=== PATIENT | male | born 1950 | race Caucasian/White ===

== ENCOUNTER → 2024-02-19 07:59 | Outpatient (BNVA) | payer MEDICARE, SELFPAY | PROVIDERS: PCP Nurse Practitioner Family; Visit Provider Podiatrist Foot & Ankle Surgery | DX: L97.512 Non-pressure chronic ulcer of other part of right foot with fat layer exposed; E11.621 Type 2 diabetes mellitus with foot ulcer | CPT/HCPCS: 11042; 99203 ==

== ENCOUNTER → 2024-02-26 09:58 | Outpatient (BNVA) | payer MEDICARE, SELFPAY | PROVIDERS: PCP Nurse Practitioner Family; Visit Provider Podiatrist Foot & Ankle Surgery | DX: L97.512 Non-pressure chronic ulcer of other part of right foot with fat layer exposed (principal) | CPT/HCPCS: 99213 ==

== ENCOUNTER → 2024-03-12 10:30 | Outpatient (BNVA) | payer MEDICARE, OTHER, SELFPAY | PROVIDERS: PCP Nurse Practitioner Family; Visit Provider Podiatrist Foot & Ankle Surgery | DX: L97.512 Non-pressure chronic ulcer of other part of right foot with fat layer exposed (principal) | CPT/HCPCS: 11042 ==

== ENCOUNTER → 2024-03-19 10:39 | Outpatient (BNVA) | payer MEDICARE, SELFPAY | PROVIDERS: PCP Nurse Practitioner Family; Visit Provider Podiatrist Foot & Ankle Surgery | DX: L97.512 Non-pressure chronic ulcer of other part of right foot with fat layer exposed (principal) | CPT/HCPCS: 11042 ==

== ENCOUNTER → 2024-03-25 12:57 | Outpatient (BNVA) | payer MEDICARE, SELFPAY | PROVIDERS: PCP Nurse Practitioner Family; Visit Provider Thoracic Surgery (Cardiothoracic Vascular Surgery) | DX: E11.52 Type 2 diabetes mellitus with diabetic peripheral angiopathy with gangrene (principal); E11.621 Type 2 diabetes mellitus with foot ulcer; L97.521 Non-pressure chronic ulcer of other part of left foot limited to breakdown of skin; L97.511 Non-pressure chronic ulcer of other part of right foot limited to breakdown of skin | CPT/HCPCS: 97597; 99213 ==

== ENCOUNTER → 2024-03-30 10:18 | Outpatient (BNVA) | payer MEDICARE, SELFPAY | PROVIDERS: PCP Nurse Practitioner Family; Visit Provider Thoracic Surgery (Cardiothoracic Vascular Surgery) | DX: E11.52 Type 2 diabetes mellitus with diabetic peripheral angiopathy with gangrene (principal); E11.621 Type 2 diabetes mellitus with foot ulcer; L97.511 Non-pressure chronic ulcer of other part of right foot limited to breakdown of skin; L97.521 Non-pressure chronic ulcer of other part of left foot limited to breakdown of skin | CPT/HCPCS: 97597 ==

== ENCOUNTER → 2024-04-06 11:02 | Outpatient (BNVA) | payer MEDICARE, SELFPAY | PROVIDERS: PCP Nurse Practitioner Family; Visit Provider Thoracic Surgery (Cardiothoracic Vascular Surgery) | DX: E11.52 Type 2 diabetes mellitus with diabetic peripheral angiopathy with gangrene (principal); E11.621 Type 2 diabetes mellitus with foot ulcer; L97.521 Non-pressure chronic ulcer of other part of left foot limited to breakdown of skin | CPT/HCPCS: 97597 ==

== ENCOUNTER → 2024-04-13 11:15 | Outpatient (BNVA) | payer MEDICARE, SELFPAY | PROVIDERS: PCP Nurse Practitioner Family; Visit Provider Thoracic Surgery (Cardiothoracic Vascular Surgery) | DX: E11.52 Type 2 diabetes mellitus with diabetic peripheral angiopathy with gangrene (principal); E11.621 Type 2 diabetes mellitus with foot ulcer; L97.521 Non-pressure chronic ulcer of other part of left foot limited to breakdown of skin | CPT/HCPCS: 97597 ==

== ENCOUNTER → 2024-04-20 10:49 | Outpatient (BNVA) | payer MEDICARE, SELFPAY | PROVIDERS: PCP Nurse Practitioner Family; Visit Provider Thoracic Surgery (Cardiothoracic Vascular Surgery) | DX: E11.621 Type 2 diabetes mellitus with foot ulcer (principal); L97.521 Non-pressure chronic ulcer of other part of left foot limited to breakdown of skin; Z09 Encounter for follow-up examination after completed treatment for conditions other than malignant neoplasm | CPT/HCPCS: 97597 ==

== ENCOUNTER → 2024-04-27 10:35 | Outpatient (BNVA) | payer MEDICARE, SELFPAY | PROVIDERS: PCP Nurse Practitioner Family; Visit Provider Thoracic Surgery (Cardiothoracic Vascular Surgery) | DX: E11.52 Type 2 diabetes mellitus with diabetic peripheral angiopathy with gangrene (principal); E11.621 Type 2 diabetes mellitus with foot ulcer; L97.511 Non-pressure chronic ulcer of other part of right foot limited to breakdown of skin | CPT/HCPCS: 97597 ==

== ENCOUNTER → 2024-05-04 09:54 | Outpatient (BNVA) | payer MEDICARE, SELFPAY | PROVIDERS: PCP Nurse Practitioner Family; Visit Provider Thoracic Surgery (Cardiothoracic Vascular Surgery) | DX: E11.52 Type 2 diabetes mellitus with diabetic peripheral angiopathy with gangrene (principal); E11.621 Type 2 diabetes mellitus with foot ulcer; L97.511 Non-pressure chronic ulcer of other part of right foot limited to breakdown of skin | CPT/HCPCS: 97597 ==

== ENCOUNTER → 2024-05-11 09:34 | Outpatient (BNVA) | payer MEDICARE, SELFPAY | PROVIDERS: PCP Nurse Practitioner Family; Visit Provider Thoracic Surgery (Cardiothoracic Vascular Surgery) | DX: E11.52 Type 2 diabetes mellitus with diabetic peripheral angiopathy with gangrene (principal); E11.621 Type 2 diabetes mellitus with foot ulcer; L97.511 Non-pressure chronic ulcer of other part of right foot limited to breakdown of skin | CPT/HCPCS: 97597 ==

== ENCOUNTER → 2024-05-18 08:40 | Outpatient (BNVA) | payer MEDICARE, SELFPAY | PROVIDERS: PCP Nurse Practitioner Family; Visit Provider Thoracic Surgery (Cardiothoracic Vascular Surgery) | DX: E11.52 Type 2 diabetes mellitus with diabetic peripheral angiopathy with gangrene (principal); E11.621 Type 2 diabetes mellitus with foot ulcer; L97.511 Non-pressure chronic ulcer of other part of right foot limited to breakdown of skin | CPT/HCPCS: 97597 ==

== ENCOUNTER → 2024-05-25 08:40 | Outpatient (BNVA) | payer MEDICARE, SELFPAY | PROVIDERS: PCP Nurse Practitioner Family; Visit Provider Thoracic Surgery (Cardiothoracic Vascular Surgery) | DX: E11.52 Type 2 diabetes mellitus with diabetic peripheral angiopathy with gangrene (principal); E11.621 Type 2 diabetes mellitus with foot ulcer; L97.511 Non-pressure chronic ulcer of other part of right foot limited to breakdown of skin | CPT/HCPCS: 97597 ==

== ENCOUNTER → 2024-06-08 09:15 | Outpatient (BNVA) | payer MEDICARE, SELFPAY | PROVIDERS: PCP Nurse Practitioner Family; Visit Provider Thoracic Surgery (Cardiothoracic Vascular Surgery) | DX: E11.52 Type 2 diabetes mellitus with diabetic peripheral angiopathy with gangrene (principal); E11.621 Type 2 diabetes mellitus with foot ulcer; L97.511 Non-pressure chronic ulcer of other part of right foot limited to breakdown of skin | CPT/HCPCS: 97597 ==

== ENCOUNTER → 2024-06-15 08:53 | Outpatient (BNVA) | payer MEDICARE, SELFPAY | PROVIDERS: PCP Nurse Practitioner Family; Visit Provider Thoracic Surgery (Cardiothoracic Vascular Surgery) | DX: E11.52 Type 2 diabetes mellitus with diabetic peripheral angiopathy with gangrene (principal); E11.621 Type 2 diabetes mellitus with foot ulcer; L97.511 Non-pressure chronic ulcer of other part of right foot limited to breakdown of skin | CPT/HCPCS: 97597 ==

== ENCOUNTER → 2024-06-29 09:09 | Outpatient (BNVA) | payer MEDICARE, SELFPAY | PROVIDERS: PCP Nurse Practitioner Family; Visit Provider Thoracic Surgery (Cardiothoracic Vascular Surgery) | DX: Z09 Encounter for follow-up examination after completed treatment for conditions other than malignant neoplasm (principal); Z87.2 Personal history of diseases of the skin and subcutaneous tissue | CPT/HCPCS: 99212 ==

== ENCOUNTER → 2024-07-14 09:38 | Outpatient (BNVA) | payer MEDICARE, SELFPAY | PROVIDERS: PCP Nurse Practitioner Family; Visit Provider Thoracic Surgery (Cardiothoracic Vascular Surgery) | DX: E11.52 Type 2 diabetes mellitus with diabetic peripheral angiopathy with gangrene (principal); E11.621 Type 2 diabetes mellitus with foot ulcer; L97.511 Non-pressure chronic ulcer of other part of right foot limited to breakdown of skin | CPT/HCPCS: 11042 ==

== ENCOUNTER → 2024-07-21 09:33 | Outpatient (BNVA) | payer MEDICARE, SELFPAY | PROVIDERS: PCP Nurse Practitioner Family; Visit Provider Thoracic Surgery (Cardiothoracic Vascular Surgery) | DX: Z09 Encounter for follow-up examination after completed treatment for conditions other than malignant neoplasm (principal); Z87.2 Personal history of diseases of the skin and subcutaneous tissue | CPT/HCPCS: 99212 ==

== ENCOUNTER → 2024-09-07 15:54 | Outpatient (BNVA) | payer MEDICARE, OTHER, SELFPAY | PROVIDERS: PCP Nurse Practitioner Family; Visit Provider Podiatrist Foot & Ankle Surgery | DX: L60.3 Nail dystrophy (principal); G62.9 Polyneuropathy, unspecified; L84 Corns and callosities; E11.42 Type 2 diabetes mellitus with diabetic polyneuropathy | CPT/HCPCS: 11055; 11721 ==

== ENCOUNTER → 2024-11-11 13:29 | Outpatient (BNVA) | payer MEDICARE, MEDICAID, SELFPAY | PROVIDERS: Visit Provider Podiatrist Foot & Ankle Surgery | DX: E11.42 Type 2 diabetes mellitus with diabetic polyneuropathy (principal); L60.3 Nail dystrophy; L84 Corns and callosities; G62.9 Polyneuropathy, unspecified | CPT/HCPCS: 11056; 11721; 99213 ==

== ENCOUNTER 2024-11-24 11:53 | Outpatient (RCR) | payer MEDICARE, MEDICAID, SELFPAY | END 2024-12-08 23:59 | disposition home or self-care (01) | LOC: SPT 11:53 | DX: I89.0 Lymphedema, not elsewhere classified (principal) | CPT/HCPCS: 97161 ==

== ENCOUNTER 2025-01-24 14:46 | Oncology outpatient (recurring) (ONCR) | payer OTHER, MEDICAID, SELFPAY | END 2025-02-07 23:59 | disposition home or self-care (01) | PROVIDERS: Visit Provider Internal Medicine Medical Oncology | DX: D69.6 Thrombocytopenia, unspecified (principal); R60.9 Edema, unspecified; K74.60 Unspecified cirrhosis of liver | CPT/HCPCS: 99205 ==

== ENCOUNTER 2025-02-14 08:55 | Inpatient (IN) | payer OTHER, MEDICAID, SELFPAY ==
--- OUTSIDE RECORDS SUMMARY | 2024-09-27 12:15 | XMS_ITS ---
Author Organization [facility] Address [address] [place] [address] Care Team Providers Care In Service Education Teacher Name Role Phone CHASTITY PARKER Unavailable [phone] JACINTO CRUM Unavailable [phone] REASON FOR VISIT 4 wk postop Encounters Encounter Location Date Provider Diagnosis [facility] [address] [facility] [place] [address] 09/27/2024 JACINTO CRUM Plan Of Treatment Next Appt Details Provider Name:JACINTO Titus, 03/28/2025 02:20:00 PM, [address] [place], [address], Progress Notes * Axel STRINGER EDOB: 2 (74 yo M)Acc No.[id number]:09/27/2024 Patient: Liliana UMANAAxel Provider: Maya CRUM MD :1950 A ge:74 Y S ex:Male Date:09/27/2024 Address:[address] [place] [address] [address], [place], [id number] Subjective: * Chief Complaints: * 1 . 4 wk postop. * Medical History: Objective: * Vitals: Assessment: Plan: * Treatment: * Billing Information: * Visit Code: * Procedure Codes: * Electronic signature of AUST IN MD SKYLA on 02/14/2025 at 09:05 AM CDT Sign off status: Pending * Provider: Maya CRUM MD Date: 0 09/27/2024 Generated for Tessie Lindog/Ferny on: 0 02/14/2025 09:05 AM CDT
[2025-02-14] VITALS (7 sets, daily range): BP systolic 111–139; BP diastolic 57–79; PULSE 65–82; RESP 16–19; TEMP 36.7–37.1; O2SAT 92–98; BMI 51.3; BMI 53.1
--- OUTSIDE RECORDS SUMMARY | 2025-02-14 09:06 | XMS_ITS | Encounter Summary ---
Author Organization [facility] Address [address] [place] [address] Care Team Providers Care Administrative Processor Name Role Phone Rosita Carpio DO Primary Care Provider [phone] Reason for Visit * Reason Onset Date Comments Needs Appointment 06/04/2024 Encounter Details Date Type Department Care Team (Late st Contact Info) Description 06/04/2024 Telephone [facility] [address] [facility] [address] [place] [address] Kirit Perez MD [address] [place] [address] KAMILLE Fried Needs Appointment Social History Tobacco Use Types Packs/Day Years Used Date Smoking Tobacco: Former Cigarettes Smokeless Tobacco: Never Alcohol Use Standard Drinks/Week Comments Never 0 (1 standard drink = 0.6 oz pur e alcohol) Feeling Safe Answer Date Recorded Are you in a relationship wi th someone who hurts you emotionally and/or physically? No 05/27/2024 Food Insecurity Answer Date Recorded Social/Environmental Concerns No concerns Transportation Needs Answer Date Record ed Social/Environmental Concerns No concerns Housing Stability Answer Date Recorded Social/Environmental Concerns No concerns Utility Needs Answer Date Recorded Social/Environmental Concerns No concerns Sex and Gender Information Value Date Recorded Sex Assigned at Not on file Legal Sex Male 9:56 AM CDT Gender Identity Not on file Sexual Orientation Not on file documented as of this encounter Miscellaneous Notes * Telephone Encounter - Ama Henriquez - 06/04/2024 9:51 AM CDT Chris (Provider) Caller: Nora Relation to Patient: daughter PHI (Y/N): y MESSAGE Caller is needing to schedule appt for pt, please advise Cardiology Junior Systems Administrator: Ama Henriquez documented in this encounter Plan of Treatment Upcoming Encounters Date Type Department Care Team (Late st Contact Info) Description 04/28/2025 2:30 PM CDT Office Visit [facility] Cardiology [facility]ly [facility] [address] [address] Whitney Oviedo, [address] [address] 05/04/2025 8:40 AM CDT Office Visit [facility] [address] [place] [address] Rosita Carpio DO [address] [place] [address] 07/08/2025 10:20 AM CITY DESIGNER Office Visit [facility] [address] [place] [phone] Jose Horn, [facility] [address] [place] [address] documented as of this encounter Visit Diagnoses Not on filedocumented in this encounter Additional Health Concerns Infection Onset Date Last Indicated Resolved Time R/O C. diff 10/12/2024 10/12/2024 10/12/2024 5:09 PM CITY DESIGNER R/O C. diff 10/12/2024 10/12/2024 10/13/2024 5:30 PM CITY DESIGNER documented as of this encounter Care Teams Administrative Processor Relationship Specialty Start Date End Date Rosita Carpio DO [address] [place] [address] PCP - General Family Practice 06/05/23 documented as of this encounter
--- OUTSIDE RECORDS SUMMARY | 2025-02-14 09:06 | XMS_ITS | Clinical Summary ---
Author Organization [facility] [address] [facility] Address [address] [facility] [place] [address] Phone Care Team Providers [facility] Dean Name Role Phone BalajiDahliaRosita L DO Primary Care Provider [phone] Allergies Active Allergy Reactions Criticality Noted Date Comments Penicillins Swelling Low 06/05/2023 Medications aspirin (ECOTRIN EC) 81 mg Tablet, Delayed Release (E.C.)Indicatio ns:Presence of Watchman left atrial appendage closure device,HFrEF (heart failure with reduced ejection fraction) (CMS/HCC),Benig n hypertension,Hi story of heart attack,Permanen t atrial fibrillation (CMS/HCC),Asymp tomatic bradycardia Take 81 mg by mouth daily. 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 Take 1/2 tablet once daily 45 Tablet 3 024 Active omeprazole (PriLOSEC) 20 mg Capsule, Delayed Release(E.C.)In dications:Gastr oesophageal reflux disease without esophagitis Take 1 Capsule (20 mg) by mouth daily. 90 Capsule 3 024 Active tamsulosin (FLOMAX) 0.4 mg capsule Take 0.4 mg by mouth daily after supper. Active L. acidophilus/pec tin, citrus (ACIDOPHILUS-PE CTIN, CITRUS ORAL) Take 1 Capsule by mouth daily. Active nystatin (NYSTOP) 100,000 unit/gram powderIndicatio ns:Candidal intertrigo Apply to affected area 2 times daily. 60 Gram 3 024 Active atorvastatin (LIPITOR) 40 mg tabletIndicatio ns:Dyslipidemia take 1 tablet by mouth once daily 100 Tablet 2 025 Active lisinopriL (PRINIVIL) 5 mg tabletIndicatio ns:Essential hypertension Take 0.5 Tablets (2.5 mg) by mouth daily. 30 Tablet 025 Active metOLazone (ZAROXOLYN) 2.5 mg tablet Take 1 Tablet (2.5 mg) by mouth 1 time daily as needed for Other (See Comment) (for worsening lower extremity edema. contact diesel fitter mechanic office if need to use). 30 Tablet 025 Active escitalopram oxalate (LEXAPRO) 10 mg tabletIndicatio ns:Major depressive disorder with single episode, in full remission Take 1 Tablet (10 mg) by mouth daily. 100 Tablet 3 025 Active potassium CHLORIDE (K-DUR,KLOR-CON M20) 20 mEq Extended Release tabletIndicatio ns:HFrEF (heart failure with reduced ejection fraction) (CMS/HCC) Take 1 Tablet (20 mEq) by mouth 2 times daily. 180 Tablet 3 025 Active glimepiride (AMARYL) 2 mg tabletIndicatio ns:Type 2 diabetes mellitus with other circulatory complication, without long-term current use of insulin (CMS/HCC) Take 1 Tablet (2 mg) by mouth daily with breakfast. 100 Tablet 3 025 Active metoprolol succinate (TOPROL XL) 25 mg Extended Release 24 hour tablet Take 25 mg by mouth. Active dapagliflozin propanediol (Farxiga) 10 mg Tablet Take 1 Tablet (10 mg) by mouth daily. 90 Tablet 4 025 Active dulaglutide (TRULICITY) 0.75 mg/0.5 mL injection Inject 0.5 mL (0.75 mg) by subcutaneous injection every 7 days. 9 mL 3 025 Active bumetanide (BUMEX) 2 mg tablet Take 1 Tablet (2 mg) by mouth two times daily, 7 hours apart. 60 Tablet 025 Active bumetanide (BUMEX) 2 mg tablet Take 1 Tablet (2 mg) by mouth two times daily, 7 hours apart. 60 Tablet 025 06/16/ 2025 Discontinued(R eorder) dapagliflozin propanediol (Farxiga) 10 mg Tablet TAKE ONE TABLET (10 MG TOTAL) BY MOUTH ONE (ONE) TIME EACH DAY. 023 2024 Discontinued(R eorder) liraglutide (Victoza 2-Bobby) 0.6 mg/0.1 mL (18 mg/3 mL) INJECT 0.6 MG ONCE DAILY FOR SEVEN DAYS THEN 1.2 MG SUBCUTANEOUSLY ONCE DAILY 024 2024 Discontinued Active Problems Problem Noted Date Diagnosed Date Major depressive disorder wi th single episode, in full remission 01/16/2025 Thrombocytopenia 11/16/2024 Scrotal swelling 10/11/2024 Benign prostatic hyperplasia with urinary freque ncy 07/20/2024 Frequent falls 07/02/2024 Frail elderly 07/02/2024 Lymphedema of both lower extremities 03/10/2024 Gastroesophageal reflux disease without esophagi tis 09/23/2023 Idiopathic chronic gout of multiple sites withou t tophus 09/23/2023 Vitamin D deficiency 09/23/2023 HFrEF (heart failure with reduced ejection fract ion) 09/23/2023 ASHD (arteriosclerotic heart disease) 07/17/2023 Essential hypertension 07/17/2023 Type 2 diabetes mellitus wit h stage 3a chronic kidney disease, without long-term current use of insulin 07/17/2023 Paroxysmal atrial fibrillation 04/16/2023 Presence of Watchman left atrial appendage closu re device 06/20/2022 Overview (01/16/2025): Watchman placement 05/23/22: 6 carries a watchman 27 mm device from lot #[id number] and 3 device measurement of the left atrial appendage was 20 mm post deployment the maximum device measurement EVER 06/20/2022 The left atrium is moderately dilated. Left Atrial Appendage: The watchman left atrial appendage occluder device is well visualized within the appendage. Assessment with color Doppler reveals no evidence of leak or failure to seal around the device. There is no thrombus noted on the watchman device. Morbid obesity with BMI of 50.0-59.9, adult 09/11 Chronic deep vein thrombosis (DVT) of both femor al veins 09/25/2017 Obstructive sleep apnea syndrome 07/28/2017 Overview (01/16/2025): Treated with BiPAP. Followed by pulmonology. Tobacco user 07/28/2017 Resolved Problems Problem Noted Date Diagnosed Date Resolved Date Morbid obesity 11/17/2024 01/16/2025 Stage 3b chronic kidney disease 06/11/2024 07/02/2024 Dyspnea 05/27/2024 01/16/2025 Swelling of lower extremity 05/27/2024 01/16/2025 Acute on chronic congestive heart failure 03/21/2024 07/02/2024 Benign hypertension 09/23/2023 06/03/20 Permanent atrial fibrillation 07/17/2023 01/16/2025 Dyslipidemia 07/17/2023 01/16/2025 Coronary atherosclerosis 08/28/201703/2025 Overview (01/16/2025): SHANNON to LAD 08/28 Encounters Date Type Department Care Team Description 02/01/2025 Orders Only [facility] Information Management [place] [address] [place] [address] Provider, Abstract 01/26/2025 External Device Data [facility] ABSTRACTION Provider, Abstract 01/24/2025 Refill [facility] [address] [place] [address] Rosita Carpio, 01/20/2025 Telephone [facility] [address] [place] [address] Rosita Carpio, DO Provider Call; [facility] 01/18/2025 Telephone [facility] [address] [place] [address] Rosita Carpio DO Provider Call; Provider Call 01/13/2025 Refill [facility] [address] [place] [address] Rosita Carpio, DO Type 2 diabetes mellitus with other circulatory complication, without long-term current use of insulin ([facility]) (Primary Dx) 01/05/2025 11:20 AM CDT Office Visit [facility] [address] [place] [address] Rosita Carpio DO Paroxysmal atrial fibrillation ([facility]) (Primary Dx); Major depressive disorder with single episode, in full remission; HFrEF (heart failure with reduced ejection fraction) ([facility]); Chronic deep vein thrombosis (DVT) of both femoral veins ([facility]); Morbid obesity with BMI of 50.0-59.9, adult ([facility]); Type 2 diabetes mellitus with stage 3a chronic kidney disease, without long-term current use of insulin ([facility]); ASHD (arteriosclerotic heart disease); Essential hypertension; Frail elderly; Frequent falls; Gastroesophageal reflux disease without esophagitis; Idiopathic chronic gout of multiple sites without tophus; Lymphedema of both lower extremities; Obstructive sleep apnea syndrome; Presence of Watchman left atrial appendage closure device; Benign prostatic hyperplasia with urinary frequency; Thrombocytopenia; Tobacco user 01/03/2025 Results Follow-Up [facility] [address] [place] [address] November, [employer] VITAMIN B12 AND FOLATE 12/31/2024 8:00 AM CDT Clinical Support [facility] [address] [place] [address] Thrombocytopenia; Chronic anemia 12/29/2024 External Device Data STL ABSTRACTION Provider, Abstract 12/27/2024 External Device Data Initial Department [address] [place] [address] Dr PARRA: [place] [address] Hitesh Gomez Md 12/22/2024 Orders Only [facility] [address] [place] [address] Mocknovember, [employer]CH[employer] Thrombocytopenia (Primary Dx) 12/21/2024 Refill [facility] [address] [place] [address] Jose Horn FNP Major depressive disorder with single episode, in full remission 12/21/2024 Results Follow-Up [facility] [address] [place] [address] November, [employer] MECH[employer]IC BASIC METABOLIC PANEL, CBC WITH DIFFERENTIAL, TEST AUTHORIZATION, VITAMIN B12 AND FOLATE 12/20/2024 9:00 AM CDT Clinical Support [place] [place] [id number] [place] [address] HFrEF (heart failure with reduced ejection fraction) ([facility]/HCC); Thrombocytopenia 12/13/2024 Telephone [facility] [address] [place] [address] Rosita Carpio DO Provider Call; Provider Call 12/07/2024 External Device Data STL ABSTRACTION Provider, Abstract 12/07/2024 Telephone [facility] [id number] [place] [address] Rosita Carpio DO Question; Diabetic shoe order 12/06/2024 9:00 AM CDT Office Visit [facility] [address] [place] [address] November, [employer] MECH[employer]IC HFrEF (heart failure with reduced ejection fraction) ([facility]) (Primary Dx); Lymphedema of both lower extremities 12/05/2024 Results Follow-Up [facility] [address] [place] [address] November, [employer] MECH[employer]IC COMPREHENSIVE METABOLIC PANEL, CBC WITH DIFFERENTIAL 12/03/2024 9:15 AM CDT Clinical Support [place] [id number] [facility] [place] [address] Hospital discharge follow-up; Acute on chronic diastolic (congestive) heart failure (CMS/HCC) 11/24/2024 Telephone [facility] [address] [facility] [place] [address] Rosita Carpio DO Needs Orders Written 11/23/2024 External Device Data STL ABSTRACTION Provider, Abstract 11/22/2024 10:40 AM CDT Office Visit [facility] [address] [place] [address] November, Hospital discharge follow-up (Primary Dx); Acute on chronic diastolic (congestive) heart failure (CMS/HCC) 11/21/2024 External Device Data Initial Department [address] [place] [address] Dr PARRA: [place] [address] Hitesh EmergencyMd 11/17/2024 External Device Data Initial Department [address] [place] [address] Dr PARRA: [place] [address] Hitesh [facility] 11/17/2024 Patient Outreach [address] [address] Roberta Keith RN [facility] 11/16/2024 10:01 AM CDT - 11/20/2024 12:34 PM CDT Hospital Encounter [facility] [address] [place] [address] Clare Cline MD Griffin, MD Christofer Gallegos Pratik, MD Jaoudeh, Marwan, MD Benign prostatic hyperplasia with urinary frequency Discharge Disposition: Home or Self Care 11/16/2024 Telephone [facility] [address] [place] [address] Rosita Carpio DO Provider Call 11/15/2024 11:00 AM CDT Office Visit [facility] [address] [place] [address] November, Scrotal swelling (Primary Dx); Lymphedema of both lower extremities; HFrEF (heart failure with reduced ejection fraction) (CMS/HCC) 11/15/2024 Travel 11/15/2024 Telephone [facility] [address] [place] [address] November, [employer]CH[employer] Needs Orders Written 11/15/2024 Telephone [facility] [address] [place] [address] Irasema Borrero, RN [employer] Security Guard from Last 3 Months Family History Medical History Relation Name Comments Diabetes Father Heart Attack Father Cancer Mother Relation Name Status Comments Father Mother Social History Tobacco Use Types Packs/Day Years Used Date Smoking Tobacco: Former Cigarettes Passive Smoke Exposure: Past Smokeless Tobacco: Never Tobacco Cessation:Counseling Given: No Alcohol Use Standard Drinks/Week Comments Yes 0 (1 standard drink = 0.6 oz pur e alcohol) one beer occasionally Feeling Safe Answer Date Recorded Are you in a relationship wi th someone who hurts you emotionally and/or physically? No 11/16/2024 Food Insecurity Answer Date Recorded Patient needs follow up regardin 12/02/2024 Transportation Needs Answer Date Record ed Patient needs follow up regardin 12/02/2024 Housing Stability Answer Date Recorded Social/Environmental Concerns No concerns Utility Needs Answer Date Recorded Patient needs follow up regardin 12/02/2024 Sex and Gender Information Value Date Recorded Sex Assigned at Not on file Legal Sex Male 9:56 AM CDT Gender Identity Not on file Sexual Orientation Not on file Last Filed Vital Signs Vital Sign Reading Time Taken Comments Blood Pressure 100/62 01/05/2025 11:15 AM CDT Pulse 64 01/05/2025 11:15 AM CDT Temperature 37.2 C (98.9 F) 01/05/2025 11:15 AM CDT Respiratory Rate 18 01/05/2025 11:15 AM CDT Oxygen Saturation 96% 01/05/2025 11:15 AM CDT Inhaled Oxygen Concentration - - Weight 129.3 kg (285 lb) 01/05/2025 11:15 AM CDT Height 160 cm (5' 3 ) 01/05/2025 11:15 AM CDT Body Mass Index 50.49 01/05/2025 11:15 AM CDT Plan of Treatment Upcoming Encounters Date Type Department Care Team (Late st Contact Info) Description 04/28/2025 2:30 PM CDT Office Visit [facility] Cardiology On License Of [facility] [address] [facility] [address] [place] [address] Camilo Whitney Lange, DO [address] [facility] [address] [place] [address] 05/04/2025 8:40 AM CDT Office Visit [facility] [address] [place] [address] Rosita Carpio, DO [address] [place] [address] 07/08/2025 10:20 AM CHEMICAL ETCHING PROCESSOR Office Visit [facility] [address] [place] [address] Jose Horn, [facility] [address] [place] [address] Health Maintenance Due Date Last Done Comments DTAP/TDAP/TD VACCINES (1 - Tdap) 1970 PNEUMOCOCCAL VACCINE 50+ YEA RS (1 of 2 - PCV) 1970 COLORECTAL SCREENING 1996 Colorectal Cancer Screening 1996 FIT-DNA Q 3 years 1996 FIT/FOBT Q 1 year 1996 Flex Sig/CT Colonography Q 5 years 1996 ZOSTER VACCINE (1 of 2) 2001 RSV VACCINE (60+ or ) (1 - Risk 60-74 years 1-dose series) 2011 Medicare Advantage ([place]) Preventative Visit/Annual Wellness Visit 08/11/2024 07/02/2024, 06/19/2023 DIABETES HBA1C Q 6 MONTHS 12/02/20242023, 01/12/2024, 09/23/2023, Additional history exists INFLUENZA VACCINE (#1) 2025 06/03/2024, 2022 DIABETES: A1C (Auto Order) 06/03/202506/03, 01/12/2024, 09/23/2023, Additional history exists LDL CHOLESTEROL ANNUAL 07/02/2025 , 01/12/2024, 09/23/2023, Additional history exists DIABETES MICROALBUMIN ANNUAL SCREEN 08/16/2025 08/16/2024, 09/23/2023, 06/05/2023 DIABETES ANNUAL RETINAL EXAM 09/01/2025 09/01/2024, 05/13/2019 DIABETES ANNUAL FOOT EXAM 11/11/2025 11/11/2024, KHE uACR (Auto Order) Completed 08/16/2024 , 09/23/2023, 06/05/2023 Abdominal Aortic Aneurysm (A AA) Screening Completed 10/11/2024, 05/26/2024 KHE eGFR (Auto Order) Completed 12/20/2024 , 12/03/2024, 11/20/2024, Additional history exists Procedures Procedure Name Priority Date/Time Associated Diagnosis Comments VITAMIN B12 AND FOLATE Routine 12/31/2024 8:05 AM CDT Thrombocytopenia Chronic anemia VITAMIN B12 AND FOLATE Routine 12/20/2024 9:14 AM CDT TEST AUTHORIZATION Routine 12/20/2024 9: 14 AM CDT CBC WITH DIFFERENTIAL Routine 12/20/2024 9:14 AM CDT Thrombocytopenia BASIC METABOLIC PANEL Routine 12/20/2024 9:14 AM CDT HFrEF (heart failure with reduced ejection fraction) (CMS/HCC) CBC WITH DIFFERENTIAL Routine 12/03/2024 9:19 AM CDT Hospital discharge follow-up Acute on chronic diastolic (congestive) heart failure (CMS/HCC) COMPREHENSIVE METABOLIC PANEL Routine 12/03/2024 9:19 AM CDT Hospital discharge follow-up Acute on chronic diastolic (congestive) heart failure (CMS/HCC) TELEMETRY REPORT 11/22/2024 3:10 AM CDT POC GLUCOSE Routine 11/20/2024 7:14 AM CDT BASIC METABOLIC PANEL Routine 11/20/2024 2:20 AM CDT CBC WITHOUT DIFFERENTIAL Routine 11/20/2024 2:20 AM CDT POC GLUCOSE Routine 11/19/2024 8:45 PM CDT POC GLUCOSE Routine 11/19/2024 4:23 PM CDT POC GLUCOSE Routine 11/19/2024 12:14 PM CDT POC GLUCOSE Routine 11/19/2024 7:14 AM CDT BASIC METABOLIC PANEL Routine 11/19/2024 4:01 AM CDT CBC WITHOUT DIFFERENTIAL Routine 11/19/2024 4:01 AM CDT POC GLUCOSE Routine 11/18/2024 9:24 PM CDT POC GLUCOSE Routine 11/18/2024 4:54 PM CDT POC GLUCOSE Routine 11/18/2024 10:57 AM CDT POC GLUCOSE Routine 11/18/2024 7:18 AM CDT BASIC METABOLIC PANEL Routine 11/18/2024 4:58 AM CDT CBC WITHOUT DIFFERENTIAL Routine 11/18/2024 4:58 AM CDT POC GLUCOSE Routine 11/17/2024 9:03 PM CDT POC GLUCOSE Routine 11/17/2024 5:06 PM CDT ECHOCARDIOGRAM W/ CONTRAST AGENT Pending Discharge 11/17/2024 12:53 PM CDT POC GLUCOSE Routine 11/17/2024 11:36 AM CDT POC GLUCOSE Routine 11/17/2024 7:22 AM CDT BASIC METABOLIC PANEL Routine 11/17/2024 5:16 AM CDT CBC WITHOUT DIFFERENTIAL Routine 11/17/2024 5:16 AM CDT POC GLUCOSE Routine 11/16/2024 8:30 PM CDT POC GLUCOSE Routine 11/16/2024 4:50 PM CDT EKG 12-LEAD Stat 11/16/2024 11:52 AM CDT MAGNESIUM LEVEL Stat 11/16/2024 10:44 AM CDT BASIC METABOLIC PANEL Stat 11/16/2024 10:44 AM CDT CBC WITH DIFFERENTIAL Stat 11/16/2024 10:44 AM CDT XR CHEST PA OR AP 1 VW Stat 11/15/2024 6:08 PM CDT EXTRA TUBE (URINE [place]) Stat 11/15/2024 4:59 PM CDT URINALYSIS W/REFLEX MICROSCOPIC Stat 11/15/2024 4:59 PM CDT URINE CULTURE Routine 11/15/2024 4:59 PM CDT BRAIN NATRIURETIC PEPTIDE, BNP OR PROBNP Stat 11/15/2024 4:31 PM CDT COMPREHENSIVE METABOLIC PANEL Stat 11/15/2024 4:31 PM CDT CBC WITH DIFFERENTIAL Stat 11/15/2024 4:31 PM CDT HM DIABETES FOOT EXAM Routine 11/11/2024 8:[address] ABDOMEN PELVIS WO CONTRAST Stat 10/11/2024 2:51 PM CHEMICAL ETCHING PROCESSOR HM DIABETES EYE EXAM Routine 09/01/2024 9:56 AM CHEMICAL ETCHING PROCESSOR MICROALBUMIN/CREATINI NE RATIO, RANDOM UR Routine 08/16/2024 11:21 AM CHEMICAL ETCHING PROCESSOR Type 2 diabetes mellitus with other circulatory complication, without long-term current use of insulin ([facility]) LIPID PANEL Routine 07/02/2024 12:07 PM CHEMICAL ETCHING PROCESSOR HFrEF (heart failure with reduced ejection fraction) ([facility]) Type 2 diabetes mellitus with other circulatory complication, without long-term current use of insulin ([facility]) Essential hypertension Permanent atrial fibrillation ([facility]) Stage 3a chronic kidney disease ([facility]) Dyslipidemia HEMOGLOBIN A1C Routine 06/03/2024 12:17 PM CDT Type 2 diabetes mellitus with circulatory disorder, without long-term current use of insulin from Last 3 Months or Most Recently Relevant to Health Maintenance Results * VITAMIN B12 AND FOLATE (12/31/2024 8:05 AM CDT) Only the most recent of2 resultswithin the time period is included. VITAMIN B12 415 200 - 1100 pg/mL [facility] FOLATE, SERUM 7.5 ng/mL [facility] Comment: Reference Range Low: <3.4 Borderline: 3.4-5.4 Normal: >5.4 Test Performed at: [facility] [id number] [place] [address] Rodger Almaguer MD Blood 12/31/2024 8:05 AM CDT 01/01/2025 3:19 AM CDT November [employer] CHEMISTRY ORDERABLES Final Resul t [facility] [phone] [facility] [address] [place] [address] * TEST AUTHORIZATION (12/20/2024 9:14 AM CDT) TEST NAME VITAMIN B12/FOLATE, [facility] [place] TEST CODE [id number] [facility] [place] CLIENT CONTACT IHSAN Lovett [facility] [place] SEE NOTE [facility] [place] Comment: The laboratory testing on this patient was verbally requested or confirmed by the ordering physician or his or her authorized international account representative after contact with an employee of [facility]. Federal regulations require that we maintain on file written authorization for all laboratory testing. Accordingly we are asking that the ordering physician or his or her authorized international account representative sign a copy of this report and promptly return it to the software client architect. Signature: SEE NOTE [facility] [place] Comment: Fax number: [phone] [facility]: [facility] [id number] [place] [address] Rodger Almaguer MD 12/20/2024 9:14 AM CDT 12/21/2024 7:32 AM CDT November [employer]CH[employer] CHEMISTRY ORDERABLES Final Resul t [facility] [phone] [address] * (ABNORMAL) CBC WITH DIFFERENTIAL (12/20/2024 9:14 AM CDT) Only the most recent of4 resultswithin the time period is included. WBC 5.1 3.8 - 10.8 Thousand/u L [facility] RBC 4.55 4.20 - 5.80 Million/uL [facility] HEMOGLOBIN 14.0 13.2 - 17.1 g/dL [facility] HEMATOCRIT 43.3 38.5 - 50.0 % [facility] MCV 95.2 80.0 - 100.0 fL [facility] MCH 30.8 27.0 - 33.0 pg [facility] MCHC 32.3 32.0 - 36.0 g/dL [facility] Comment: For adults, a slight decrease in the calculated MCHC value (in the range of 30 to 32 g/dL) is most likely not clinically significant; however, it should be interpreted with caution in correlation with other red cell parameters and the patient's clinical condition. RDW 14.9 11.0 - 15.0 % [facility] PLATELETS 89(L) 140 - 400 Thousand/u L [facility] MPV 13.6(H) 7.5 - 12.5 fL [facility] NEUTROPHIL ABSOLUTE 3,407 1,500 - 7,800 cells/uL [facility] LYMPHOCYTE ABSOLUTE 872 850 - 3,900 cells/uL [facility] MONOCYTE ABSOLUTE 622 200 - 950 cells/uL [facility] EOSINOPHIL ABSOLUTE 168 15 - 500 cells/uL [facility] BASOPHILS ABSOLUTE 31 0 - 200 cells/uL [facility] NEUTROPHIL 66.8 % [facility] LYMPHOCYTES 17.1 % [facility] MONOCYTE 12.2 % [facility] EOSINOPHILS 3.3 % [facility] BASOPHILS 0.6 % [facility] Comment: Test Performed at: [facility] [address] [place] [address] Rodger Almaguer MD Blood 12/20/2024 9:14 AM CDT 12/21/2024 7:32 AM CDT November [employer] MECH[employer] HEMATOLOGY ORDERABLES Final Resu lt [facility] [phone] [facility] [address] [place] [address] * (ABNORMAL) BASIC METABOLIC PANEL (12/20/2024 9:14 AM CDT) Only the most recent of6 resultswithin the time period is included. GLUCOSE 130(H) 65 - 99 mg/dL [facility] Comment: Fasting reference interval For someone without known diabetes, a glucose value >125 mg/dL indicates that they may have diabetes and this should be confirmed with a follow-up test. BUN 39(H) 7 - 25 mg/dL [facility] CREATININE 1.48(H) 0.70 - 1.28 mg/dL [facility] GFR 50(L) > OR = 60 mL/min/1.7 3m2 [facility] BUN/CREAT RATIO 26(H) 6 - 22 (calc) [facility] SODIUM 134(L) 135 - 146 mmol/L [facility] POTASSIUM 4.0 3.5 - 5.3 mmol/L [facility] CHLORIDE 94(L) 98 - 110 mmol/L [facility] CO2 32 20 - 32 mmol/L [facility] CALCIUM 9.1 8.6 - 10.3 mg/dL [facility] Comment: Test Performed at: [facility] [address] [place] [address] Rodger Almaguer MD Blood 12/20/2024 9:14 AM CDT 12/21/2024 7:32 AM CDT November [facility] CHEMISTRY ORDERABLES Final Resul t [facility] [phone] [employer] [facility] [address] [place] [address] * (ABNORMAL) COMPREHENSIVE METABOLIC PANEL (12/03/2024 9:19 AM CDT) Only the most recent of2 resultswithin the time period is included. GLUCOSE 156(H) 65 - 99 mg/dL [facility] Comment: Fasting reference interval For someone without known diabetes, a glucose value >125 mg/dL indicates that they may have diabetes and this should be confirmed with a follow-up test. BUN 47(H) 7 - 25 mg/dL [facility] CREATININE 1.48(H) 0.70 - 1.28 mg/dL [facility] GFR 50(L) > OR = 60 mL/min/1.7 3m2 [facility] BUN/CREAT RATIO 32(H) 6 - 22 (calc) [facility] SODIUM 133(L) 135 - 146 mmol/L [facility] POTASSIUM 4.3 3.5 - 5.3 mmol/L [facility] CHLORIDE 92(L) 98 - 110 mmol/L [facility] CO2 33(H) 20 - 32 mmol/L [facility] CALCIUM 9.6 8.6 - 10.3 mg/dL [facility] TOTAL PROTEIN 7.7 6.1 - 8.1 g/dL [facility] ALBUMIN 4.0 3.6 - 5.1 g/dL [facility] GLOBULIN 3.7 1.9 - 3.7 g/dL (calc) [facility] ALBUMIN/GLOBULIN RATIO 1.1 1.0 - 2.5 (calc) [facility] BILIRUBIN TOTAL 1.4(H) 0.2 - 1.2 mg/dL [facility] ALKALINE PHOSPHATASE 158(H) 35 - 144 U/L [facility] AST 33 10 - 35 U/L [facility] ALT 21 9 - 46 U/L [facility] Comment: Test Performed at: [facility] [place] [address] Rodger Almaguer MD Blood 12/03/2024 9:19 AM CDT 12/04/2024 1:58 AM CDT us November [employer] CHEMISTRY ORDERABLES Final Resul t [facility] [phone] [facility] [address] * TELEMETRY REPORT (11/22/2024 3:10 AM CDT) us Provider Scanning ECG ORDERABLES Final Result * (ABNORMAL) POC GLUCOSE (11/20/2024 7:14 AM CDT) Only the most recent of15 resultswithin the time period is included. GLUCOSE POC 105(H) 74 - 99 mg/dL 11/20/2024 7:[address] [facility] SPECIMEN SOURCE, GLUCOSE POC Capillary 11/20/2024 7:[address] [facility] Blood, whole 11/20/2024 7:14 AM CDT 11/20/2024 7:25 AM CDT Sal Beaulieu MD POINT OF CARE TESTING Final Result [facility] CLIA # [id number] [address] [place] [address] * (ABNORMAL) CBC WITHOUT DIFFERENTIAL (11/20/2024 2:20 AM CDT) Only the most recent of4 resultswithin the time period is included. Pathologist [facility] WBC 4.4(L) 4.8 - 10.8 K/uL 11/20/2024 2:[address] [facility] RBC 4.01(L) 4.60 - 6.20 M/uL 11/20/2024 2:[address] [facility] HEMOGLOBIN 12.0(L) 14.0 - 18.0 g/dL 11/20/2024 2:[address] [facility] HEMATOCRIT 35.7(L) 41.0 - 53.0 % 11/20/2024 2:[address] [facility] MCV 89.0 84.0 - 103.0 fL 11/20/2024 2:[address] [facility] MCH 29.9 27.0 - 34.0 pg 11/20/2024 2:[address] [facility] MCHC 33.6 30.0 - 35.0 g/dL 11/20/2024 2:[address] [facility] PLATELETS 79(L) 140 - 440 K/uL 11/20/2024 2:[address] [facility] MPV 12.3 8.9 - 12.8 fL 11/20/2024 2:[address] [facility] RDW 15.9(H) 11.0 - 14.5 % 11/20/2024 2:[address] [facility] RDW-STDEV 51.8 37.0 - 54.0 fL 11/20/2024 2:[address] [facility] Blood Venipuncture / Unknown 11/20/2024 2:20 AM CDT 11/20/2024 2:39 AM CDT us Margret Richter MD HEMATOLOGY ORDERABLES Final Result Performing Organization Address City/State/[facility] Co de Phone Number [facility] CLIA # [id number] [address] [place] [address] * ECHOCARDIOGRAM W/ CONTRAST AGENT (11/17/2024 12:53 PM CDT) EJECTION FRACTION 50 INTERFACE SYSTEM 11/17/2024 12:1 0 PM CDT Narrative INTERFACE SYSTEM - 11/17/2024 3:51 PM CDT [facility] Cardiovascular Services Echocardiography Laboratory [address] [place] [address] Transthoracic Echocardiography Patient: Axel Stringer Study ID: ECHO COMPLETE - Gender: M : 1950 Age: 74 Room: [facility] Study Date: 11/17/2024 Pt Status: Inpatient Study Time: 12:10:03 PM [facility] #: [id number] Ordering:Sal Beaulieu Bag Inspector: Lexi Su [facility] Indications and History: HF, Cardiomyopathy; Re-evaluation with change in clinical status without clear precipitating factor. Labs, prior tests, procedures, and surgery: Transthoracic echocardiogram (03/29/2024). The tricuspid valve showed moderate regurgitation. EF was 50%. Catheterization. Left atrial appendage occlusion was performed using a Watchman device. Summary and Conclusion: - Left ventricle: Not well visualized. The cavity size is normal. Wall thickness is at the upper limits of normal. Assessment of systolic function was difficult due to image quality. Global systolic function is at the lower limits of normal. The estimated ejection fraction is 50-55%. For Epic reporting: the left ventricular ejection fraction is 50% by visual assessment. Images are inadequate for LV wall motion assessment. Interventricular septum shows flattening/paradoxical motion consistent with RV volume and/or pressure overload. Cannot assess LV diastolic function. - Right ventricle: The cavity size is dilated. Systolic function is difficult to assess and probably reduced. Systolic pressure is increased. The estimated peak pressure is 66mm Hg. - Left atrium: The atrium is dilated. - Right atrium: The atrium is dilated. - Aortic valve: The valve is trileaflet. The leaflets are thickened and calcified. There is mild stenosis. - Mitral valve: The leaflets are mildly thickened. There is mild regurgitation. - Tricuspid valve: Not well visualized. There is moderate regurgitation. - Pulmonic valve: Not well visualized. - Inferior vena cava: The IVC is dilated. Respirophasic diameter changes are blunted (< 50%), consistent with elevated central venous pressure. Impressions: - Right ventricular dilatation with pulmonary hypertension as noted above. Technically difficult images. - Overall images may not be much different from prior. However pulmonary pressures were measured lower on prior study and may have been underestimated. Procedure information: Comparison is made to the study of March 2024. Study status: Routine. Procedure: A transthoracic echocardiogram was performed. Image quality was adequate. The study was technically limited due to poor acoustic window availability and irregular rhythm. Scanning was performed from the parasternal, apical, subcostal, and suprasternal notch acoustic windows. Intravenous contrast (Definity) was administered. There were no complications. There were no contrast reactions. Contrast study performed to evaluate left ventricular endocardial borders due to suboptimal non-contrast images. Study components: M-mode, 2D, complete spectral Doppler, and color Doppler. Height: 160cm. Height: 63in. Weight: 141kg. Weight: 310.9lb. BMI: 55.1kg/m^2. BSA: 2.6m^2. Blood pressure: 146/76 Study date: 11/17/2024. Study time: 12:10 PM. Location: Bedside. Cardiac Anatomy: LEFT VENTRICLE: Not well visualized. The cavity size is normal. Wall thickness is at the upper limits of normal. Assessment of systolic function was difficult due to image quality. Global systolic function is at the lower limits of normal. The estimated ejection fraction is 50-55%. For Epic reporting: the left ventricular ejection fraction is 50% by visual assessment. Images are inadequate for LV wall motion assessment. Interventricular septum shows flattening/paradoxical motion consistent with RV volume and/or pressure overload. Cannot assess LV diastolic function. RIGHT VENTRICLE: The cavity size is dilated. Systolic function is difficult to assess and probably reduced. Systolic pressure is increased. The estimated peak pressure is 66mm Hg. LEFT ATRIUM: The atrium is dilated. RIGHT ATRIUM: The atrium is dilated. ATRIAL SEPTUM: Not well visualized. AORTIC VALVE: The valve is trileaflet. The leaflets are thickened and calcified. Mobility is restricted. There is mild stenosis. There is no significant regurgitation. MITRAL VALVE: The leaflets are mildly thickened. Mobility is not restricted. No evidence for prolapse. There is no evidence for stenosis. There is mild regurgitation. TRICUSPID VALVE: Not well visualized. Mobility is unrestricted. There is no evidence for stenosis. There is moderate regurgitation. PULMONIC VALVE: Not well visualized. There is trivial regurgitation. PERICARDIUM: There is no pericardial effusion. AORTA: Aortic root: The root is not dilated. Measurements Left ventricle Value Left atrium continued Value ELLA, LAX 4.6 cm Vol/bsa, ES, 1-p A2C 37 ml/m^2 ESD, LAX 2.7 cm Vol, ES, 2-p 97 ml ELLA/bsa, LAX 1.8 cm/m^2 Vol/bsa, ES, 2-p 38 ml/m^2 ESD/bsa, LAX 1.0 cm/m^2 Vol, ES, A/L 100 ml FS, LAX 42 % Vol/bsa, ES, A/L 38 ml/m^2 FS, LAX chord 42 % IVS, ED 1.1 cm Right atrium Value ESD 2.7 cm Area, ES, A4C 26 cm^2 ESD/bsa 1.0 cm/m^2 FS 42 % Aortic valve Value PW, ED 1.0 cm DAVID, plan 1.45 cm^2 IVS/PW, ED 1.15 DAVID/bsa, plan 0.56 cm^2/m^2 E', lat phillip, TDI 11.6 cm/sec Peak v, S 163.37 cm/sec E/e', lat phillip, TDI 12 Mean v, S 102.66 cm/sec E', med phillip, TDI 9.2 cm/sec VTI, S 30.5 cm E/e', med phillip, TDI 15 Mean grad, S 5 mm Hg E', avg, TDI 10.4 cm/sec Peak grad, S 11 mm Hg E/e', avg, TDI 13 LVOT/AV, VTI ratio 0.66 DAVID, VTI 2.76 cm^2 LVOT Value DAVID/bsa, VTI 1.06 cm^2/m^2 Diam, S 2.3 cm LVOT/AV, Vpeak ratio 0.51 Area 4.2 cm^2 DAVID, Vmax 2.13 cm^2 Peak sangeetha, S 83.36 cm/sec DAVID/bsa, Vmax 0.82 cm^2/m^2 Mean sangeetha, S 61.63 cm/sec LVOT/AV, Vmean ratio 0.6 VTI, S 20.2 cm DAVID, Vmean 2.5 cm^2 Peak grad, S 3 mm Hg DAVID/bsa, Vmean 0.96 cm^2/m^2 Mean grad, S 2 mm Hg SV 84 ml Mitral valve Value Qs 5.4 L/min Peak E 137.94 cm/sec Qs/bsa 2.1 L/(min-m^2) Peak A 21.37 cm/sec SV/bsa 32 ml/m^2 Decel slope 709.95 cm/s^2 Decel time 194 ms Right ventricle Value Peak grad, D 8 mm Hg ELLA, LAX 4.2 cm Peak E/A ratio 6.46 ELLA 4.2 cm S' lateral 9.6 cm/sec Tricuspid valve Value TR peak v 354.3 cm/sec Left atrium Value Peak RV-RA grad, S 50 mm Hg AP dim, ES 5.5 cm AP dim index, ES 2.1 cm/m^2 Aortic root Value SI dim, A4C 6.7 cm Root diam 3.5 cm Area ES, A4C 28 cm^2 Root diam/bsa 1.3 cm/m^2 Vol, S 103 ml Vol/bsa, S 39 ml/m^2 Ascending aorta Value Vol, ES, 1-p A4C 94 ml AAo AP diam, S 3.6 cm Vol/bsa, ES, 1-p A4C 36 ml/m^2 AAo AP diam/bsa, S 1.4 cm/m^2 Vol, ES, 1-p A2C 97 ml Legend: (L) and (H) kristin values outside specified reference range. [facility] are accredited with the Intersocietal Accreditation Commission - Echocardiography. Prepared and Electronically Authenticated Cullen Bassett MD Confirmed 11/17/2024 15:51 Procedure Note Cullen Bassett MD - 11/17/2024 [facility] Cardi[facility] Services Echocardiography Laboratory [address] [place] [address] Transthoracic Echocardiography Patient: Axel Stringer Study ID: ECHO COMPLETE- Gender: Andrew : 1950 Age: 74 Room: [facility] Study Date: 11/17/2024 Pt Status: Inpatient Study Time: 12:10:03 PM [facility] #: [id number] Ordering:Sal Beaulieu Bag Inspector: Lexi Su [facility] Indications and History: HF, Cardiomyopathy; Re-evaluation withchange in clinical status without clear precipitating factor. Labs, prior tests, procedures, and surgery: Transthoracic echocardiogram (03/29/2024). The tricuspid valve showed moderate regurgitation. EF was 50%. Catheterization. Left atrial appendage occlusion was performed usinga Watchman device. Summary and Conclusion: - Left ventricle: Not well visualized. The cavity size is normal. Wall thickness is at the upper limits of normal. Assessment of systolicfunction was difficult due to image quality. Global systolic function is at thelower limits of normal. The estimated ejection fraction is 50-55%. For Epic reporting: the left ventricular ejection fraction is 50% by visual assessment. Images are inadequate for LV wall motion assessment. Interventricular septum shows flattening/paradoxical motion consistentwith RV volume and/or pressure overload. Cannot assess LV diastolicfunction. - Right ventricle: The cavity size is dilated. Systolic function isdifficult to assess and probably reduced. Systolic pressure is increased. The estimated peak pressure is 66mm Hg. - Left atrium: The atrium is dilated. - Right atrium: The atrium is dilated. - Aortic valve: The valve is trileaflet. The leaflets are thickened and calcified. There is mild stenosis. - Mitral valve: The leaflets are mildly thickened. There is mild regurgitation. - Tricuspid valve: Not well visualized. There is moderate regurgitation. - Pulmonic valve: Not well visualized. - Inferior vena cava: The IVC is dilated. Respirophasic diameter changesare blunted (< 50%), consistent with elevated central venous pressure. Impressions: - Right ventricular dilatation with pulmonary hypertension as notedabove. Technically difficult images. - Overall images may not be much different from prior. However pulmonary pressures were measured lower on prior study and may have been underestimated. Procedure information: Comparison is made to the study of March 2024.Study status: Routine. Procedure: A transthoracic echocardiogram wasperformed. Image quality was adequate. The study was technically limited due topoor acoustic window availability and irregular rhythm. Scanning was performedfrom the parasternal, apical, subcostal, and suprasternal notch acousticwindows. Intravenous contrast (Definity) was administered. There were nocomplications. There were no contrast reactions. Contrast study performed to evaluateleft ventricular endocardial borders due to suboptimal non-contrast images. Study components: M-mode, 2D, complete spectral Doppler, and colorDoppler. Height: 160cm. Height: 63in. Weight: 141kg. Weight: 310.9lb. BMI: 55.1kg/m^2. BSA: 2.6m^2. Blood pressure: 146/76 Study date: 11/17/2024. Study time: 12:10 PM. Location: Bedside. Cardiac Anatomy: LEFT VENTRICLE: Not well visualized. The cavity size is normal. Wall thickness is at the upper limits of normal. Assessment of systolicfunction was difficult due to image quality. Global systolic function is at thelower limits of normal. The estimated ejection fraction is 50-55%. For Epic reporting: the left ventricular ejection fraction is 50% by visualassessment. Images are inadequate for LV wall motion assessment. Interventricularseptum shows flattening/paradoxical motion consistent with RV volume and/orpressure overload. Cannot assess LV diastolic function. RIGHT VENTRICLE: The cavity size is dilated. Systolic function isdifficult to assess and probably reduced. Systolic pressure is increased. Theestimated peak pressure is 66mm Hg. LEFT ATRIUM: The atrium is dilated. RIGHT ATRIUM: The atrium is dilated. ATRIAL SEPTUM: Not well visualized. AORTIC VALVE: The valve is trileaflet. The leaflets are thickened and calcified. Mobility is restricted. There is mild stenosis. There isno significant regurgitation. MITRAL VALVE: The leaflets are mildly thickened. Mobility is notrestricted. No evidence for prolapse. There is no evidence for stenosis. There ismild regurgitation. TRICUSPID VALVE: Not well visualized. Mobility is unrestricted. There isno evidence for stenosis. There is moderate regurgitation. PULMONIC VALVE: Not well visualized. There is trivial regurgitation. PERICARDIUM: There is no pericardial effusion. AORTA: Aortic root: The root is not dilated. Measurements Left ventricle Value Left atrium continued Value ELLA, LAX 4.6 cm Vol/bsa, ES, 1-p A2C 37ml/m^2 ESD, LAX 2.7 cm Vol, ES, 2-p 97ml ELLA/bsa, LAX 1.8 cm/m^2 Vol/bsa, ES, 2-p 38ml/m^2 ESD/bsa, LAX 1.0 cm/m^2 Vol, ES, A/L 100ml FS, LAX 42 % Vol/bsa, ES, A/L 38ml/m^2 FS, LAX chord 42 % IVS, ED 1.1 cm Right atrium Value ESD 2.7 cm Area, ES, A4C 26cm^2 ESD/bsa 1.0 cm/m^2 FS 42 % Aortic valve Value PW, ED 1.0 cm DAVID, plan 1.45cm^2 IVS/PW, ED 1.15 DAVID/bsa, plan 0.56cm^2/m^2 E', lat phillip, TDI 11.6 cm/sec Peak v, S 163.37cm/sec E/e', lat phillip, TDI 12 Mean v, S 102.66cm/sec E', med phillip, TDI 9.2 cm/sec VTI, S 30.5cm E/e', med phillip, TDI 15 Mean grad, S 5 mmHg E', avg, TDI 10.4 cm/sec Peak grad, S 11 mmHg E/e', avg, TDI 13 LVOT/AV, VTI ratio 0.66 DAVID, VTI 2.76cm^2 LVOT Value DAVID/bsa, VTI 1.06cm^2/m^2 Diam, S 2.3 cm LVOT/AV, Vpeak ratio 0.51 Area 4.2 cm^2 DAVID, Vmax 2.13cm^2 Peak sangeetha, S 83.36 cm/sec DAVID/bsa, Vmax 0.82cm^2/m^2 Mean sangeetha, S 61.63 cm/sec LVOT/AV, Vmean ratio 0.6 VTI, S 20.2 cm DAVID, Vmean 2.5cm^2 Peak grad, S 3 mm Hg DAVID/bsa, Vmean 0.96cm^2/m^2 Mean grad, S 2 mm Hg SV 84 ml Mitral valve Value Qs 5.4 L/min Peak E 137.94cm/sec Qs/bsa 2.1 L/(min-m^2) Peak A 21.37cm/sec SV/bsa 32 ml/m^2 Decel slope 709.95cm/s^2 Decel time 194ms Right ventricle Value Peak grad, D 8 mmHg ELLA, LAX 4.2 cm Peak E/A ratio 6.46 ELLA 4.2 cm S' lateral 9.6 cm/sec Tricuspid valve Value TR peak v 354.3cm/sec Left atrium Value Peak RV-RA grad, S 50 mmHg AP dim, ES 5.5 cm AP dim index, ES 2.1 cm/m^2 Aortic root Value SI dim, A4C 6.7 cm Root diam 3.5cm Area ES, A4C 28 cm^2 Root diam/bsa 1.3cm/m^2 Vol, S 103 ml Vol/bsa, S 39 ml/m^2 Ascending aorta Value Vol, ES, 1-p A4C 94 ml AAo AP diam, S 3.6cm Vol/bsa, ES, 1-p A4C 36 ml/m^2 AAo AP diam/bsa, S 1.4cm/m^2 Vol, ES, 1-p A2C 97 ml Legend: (L) and (H) kristin values outside specified reference range. [facility] are accredited with theVerde Valley Medical Centersocietal Accreditation Commission - Echocardiography. Prepared and Electronically Authenticated Cullen Danyelle CANCINO Confirmed 11/17/2024 15:51 us Sal Beaulieu MD US ORDERABLES Final Result INTERFACE SYSTEM Refer to clinic/hospital department * EKG 12-LEAD (11/16/2024 11:52 AM CDT) 11/16/2024 11:5 2 AM CDT Narrative INTERFACE SYSTEM - 11/16/2024 8:06 PM CDT [address] [address] Test Date: 2024-11-16 Pat Name: AXEL STRINGER Department: 11 Room: 02 02 Gender: Male Field Marketing Coordinator: [id number] : 1950 Requested By: Order Number: [id number] Brandie MD: Jasiel Lee Measurements Intervals Girard Rate: 66 P: 0 KS: 0 QRS: 129 QRSD: 132 T: -54 QT: 492 QTc: 515 Interpretive Statements Atrial fibrillation Right bundle branch block Anteroseptal infarct, age undetermined Abnormal ECG Electronically Signed On 11-16-2024 20:06:37 CDT by Jasiel Lee Procedure Note Jasiel Lee MD - 11/16/2024 [facility] [address] [place] [address] Test Date: 2024-11-16 Pat Name: AXEL STRINGER Department: 11 Room: 02 Gender: Male Field Marketing Coordinator: [id number] : 1950 Requested By: Order Number: [id number] Reading MD: Jasiel Lee Measurements Intervals Girard Rate: 66 P: 0 KS: 0 QRS: 129 QRSD: 132 T: -54 QT: 492 QTc: 515 Interpretive Statements Atrial fibrillation Right bundle branch block Anteroseptal infarct, age undetermined Abnormal ECG Electronically Signed On 11-16-2024 20:06:37 CDT by Jasiel Lee us Clare Cline MD ECG ORDERABLES Final Result INTERFACE SYSTEM Refer to clinic/hospital department * MAGNESIUM LEVEL (11/16/2024 10:44 AM CDT) MAGNESIUM 2.1 1.6 - 2.4 mg/dL 11/16/2024 11:[address] [facility] Blood Venipuncture / Unknown 11/16/2024 10:44 AM CDT 11/16/2024 10:55 AM CDT us Margret Richter MD CHEMISTRY ORDERABLES Final Result Performing Organization Address City/[facility] Co de Phone Number [facility] CLIA # [id number] [address] [facility] [place] [address] * XR CHEST PA OR AP 1 VW (11/15/2024 6:08 PM CDT) Anatomical Region Laterality Modality Chest Computed Radiogr aphy 11/15/2024 6:09 PM CDT Impressions 11/15/2024 6:47 PM CDT IMPRESSION: Cardiomegaly without failure. Narrative 11/15/2024 6:47 PM CDT Exam: XR CHEST PA OR AP 1 VW Date/Time of Exam: 11/15/2024 6:08 PM Reason For Exam: Shortness of Breath SOB. Diagnosis: See Reason for Exam. Findings: The cardiac silhouette is enlarged and atherosclerosis involves aortic arch. The right hemidiaphragm is elevated. Calcified granulomatous changes are again noted. No confluent airspace disease or definite pleural effusion. No pneumothorax. Degenerative changes are present in the thoracic spine and glenohumeral joints. Procedure Note Cristian Bowen MD - 11/15/2024 Exam: XR CHEST PA OR AP 1 VW Date/Time of Exam: 11/15/2024 6:08 PM Reason For Exam: Shortness of Breath SOB. Diagnosis: See Reason for Exam. Findings: The cardiac silhouette is enlarged and atherosclerosis involves aortic arch. The right hemidiaphragm is elevated. Calcified granulomatous changes are again noted. No confluent airspace disease or definite pleural effusion. No pneumothorax. Degenerative changes are present in the thoracic spine and glenohumeral joints. IMPRESSION: Cardiomegaly without failure. Letty Mccracken NP DIAGNOSTIC IMAGING ORDE RABLES Final Result * EXTRA TUBE (URINE [place]) (11/15/2024 4:59 PM CDT) Urine URINE SPECIMEN OBTAINED BY CLEAN CATCH PROCEDURE / Unknown Collection / Unknown 11/15/2024 4:59 PM CDT 11/15/2024 5:14 PM CDT Letty Mccracken NP URINE ORDERABLES Final Result [facility]OR[facility] # [id number] [address] [place] [address] * (ABNORMAL) URINALYSIS WITH REFLEX MICROSCOPIC (11/15/2024 4:59 PM CDT) COLOR UA Pale Yellow Pale to Dark Yellow 11/15/2024 5:[address] [facility] CLARITY UA Clear Clear 11/15/2024 5:[address] [facility] SPECIFIC GRAVITY UA 1.012 1.003 - 1.035 11/15/2024 5:[address] [facility] PH UA 6.0 5.0 - 8.0 11/15/2024 5:[address] [facility] LEUKOCYTE ESTERASE UA 1+(A) Negative 11/15/2024 5:[address] [facility] NITRITE UA Negative Negative 11/15/2024 5:[address] [facility] PROTEIN UA Negative Negative 11/15/2024 5:[address] [facility] GLUCOSE UA Negative Negative 11/15/2024 5:[address] [facility] KETONES UA Negative Negative 11/15/2024 5:[address] [facility] UROBILINOGEN UA <2.0 <2.0 mg/dL 5:[address] [facility] BILIRUBIN UA Negative Negative 11/15/2024 5:[address] [facility] BLOOD UA Negative Negative 11/15/2024 5:[address] [facility] WBC UA 11-25(A) 0 - 2 /hpf 11/15/2024 5:[address] [facility] RBC UA 0-2 0 - 2 /hpf 11/15/2024 5:[address] [facility] BACTERIA UA Negative Negative /hpf 11/15/2024 5:[address] [facility] EPITHELIAL CELLS, URINE 0-5 0 - 5 /hpf 11/15/2024 5:[address] [facility] Urine URINE SPECIMEN OBTAINED BY CLEAN CATCH PROCEDURE / Unknown Collection / Unknown 11/15/2024 4:59 PM CDT 11/15/2024 5:14 PM CDT us Lettydivya Cuadra Kaykay BLASTING MINER URINE ORDERABLES Final Result Performing Organization Address [facility] Co de Phone Number [facility] [employer] [facility] CLIA # [id number] [address] [address] [place], [place] [id number] * (ABNORMAL) URINE CULTURE (11/15/2024 4:59 PM CDT) CULTURE PSEUDOMONAS AERUGINOSA(A) KEEGAN MCG/ML 11/18/2024 7:12 AM CDT [facility] [employer] [facility] Urine URINE SPECIMEN OBTAINED BY CLEAN CATCH PROCEDURE / Unknown Collection / Unknown 11/15/2024 4:59 PM CDT 11/15/2024 5:14 PM CDT Narrative Organism Antibiotic Method Susceptibility Pseudomonas aeruginosa CEFEPIME KEEGAN MCG/ML 2 mcg/mL: Susceptible Pseudomonas aeruginosa CEFTAZIDIME KEEGAN MCG/ML 4 mcg/mL: Susceptible Pseudomonas aeruginosa GENTAMICIN KEEGAN MCG/ML Resistant Pseudomonas aeruginosa TOBRAMYCIN KEEGAN MCG/ML <=1 mcg/mL: Susceptible Pseudomonas aeruginosa CIPROFLOXACIN KEEGAN MCG/ML <=0.25 mcg/mL: Susceptible Pseudomonas aeruginosa LEVOFLOXACIN KEEGAN MCG/ML 0.5 mcg/mL: Susceptible Pseudomonas aeruginosa PIPERACILLIN/ TAZOBACTAM KEEGAN MC G/ML 8 mcg/mL: Susceptible Comment:Aminoglycosides shou ld not be used as monotherapy for infections outside the urinary tract. Consultation with an infectious diseases specialist is recommended. us Margret Richter MD MICROBIOLOGY - GENERAL ORDE MELVIN Final Result Performing Organization Address City/[facility]/ZIP Co de Phone Number [facility] CLIA # [id number] [address] [address] * (ABNORMAL) BRAIN NATRIURETIC PEPTIDE, BNP OR PROBNP (11/15/2024 4:31 PM CDT) PROBNP, N TERMINAL 1,092(H) 0 - 125 pg/mL 11/15/2024 5:32 PM CDT [facility] [employer] [facility] Comment: INTERPRETIVE COMMENT based on diagnosis: Diagnostic NT pro-BNP cutoffs for Heart Failure in the absence of renal failure is suggested for the following ranges <75 years: <125 pg/mL >=75 years: <450 pg/mL Exclusionary rule out cut-point for Acute Decompensated Heart Failure(ADHF) All ages: <300 pg/mL Diagnostic NT pro-BNP cutoffs for Acute Decompensated Heart Failure(ADHF) in the absence of renal failure is suggested for the following ages <50 years: > 450 pg/mL 50-75 years: > 900 pg/mL >75 years: >1800 pg/mL Blood Venipuncture / Unknown 11/15/2024 4:31 PM CDT 11/15/2024 4:57 PM CDT Letty Mccracken NP CHEMISTRY ORDERABLES Fi nal Result [facility] CLIA # [id number] [address] [place] [id number] * DIABETES FOOT EXAM (11/11/2024 8:45 AM CDT) Abstract Provider HEALTH MAINTENANCE Final Resul t * CT ABDOMEN PELVIS WO CONTRAST (10/11/2024 2:51 PM CHEMICAL ETCHING PROCESSOR) Anatomical Region Laterality Modality Abdomen Computed Tomogra phy 10/11/2024 2:42 PM CHEMICAL ETCHING PROCESSOR Impressions 10/11/2024 3:49 PM CHEMICAL ETCHING PROCESSOR IMPRESSION: Please see below. Exam: CT ABDOMEN PELVIS WO CONTRAST Date/Time of Exam: 10/11/2024 2:51 PM Reason For Exam: Scrotal swelling, recent surgery; history of scrotal infections. Diagnosis: See Reason for Exam. Technique: CT of the abdomen and pelvis was performed without the administration of intravenous contrast. Comparison: 05/26/2024. FINDINGS: Evaluation of the vasculature and solid organs are limited without the use of contrast. There is beam hardening artifact associated with orthopedic hardware. Lower Chest: There is a small right pleural effusion. Aorta/Vasculature: The aorta is nonaneurysmal. Lymph Nodes: There are enlarged bilateral inguinal lymph nodes measuring up to 2.0 cm in short axis dimension. Liver: The liver has a cirrhotic morphology. Gallbladder and Biliary: There is cholelithiasis. There is no evidence of acute inflammation. There is no biliary ductal dilatation. Spleen: The spleen is within normal limits. Pancreas: The pancreas is within normal limits. Adrenal Glands: The adrenal glands are within normal limits. Kidneys: There is a moderate degree of nonspecific relatively symmetric perinephric fat stranding which is unchanged and potentially chronic. There is no evidence of a discrete fluid collection. There is no obstructive uropathy. Stomach: The stomach is within normal limits. Bowel: The bowel loops are normal in position and caliber. There is a moderate amount of stool. There are no focal inflammatory changes. Appendix: The appendix is not definitively visualized. There are no secondary signs of acute appendicitis. Peritoneum: There is no free air or abnormal free fluid. Urinary Bladder: The urinary bladder is within normal limits. Pelvic Reproductive Structures: There is no significant pelvic reproductive structure pathology. Subcutaneous Soft Tissues: There is a prominent degree of nonspecific body wall and scrotal edema which may in part reflect third spacing/volume overload with infectious pathology involving the scrotum being difficult to entirely exclude given clinical history. There is no gross evidence of a discrete fluid collection given limitations of lack of contrast. There is no apparent subcutaneous emphysema. Bones: There is partial visualization of multiple subacute healing right rib fractures. IMPRESSION: Prominent nonspecific scrotal edema without gross evidence of a discrete fluid collection given limitations of lack of contrast which may in part be infectious in etiology given clinical history; scrotal ultrasound could assess further if clinically indicated. Nonspecific inguinal lymphadenopathy which may be reactive. Additional incidental findings as above. Narrative Procedure Note Dean Easley, DO - 10/11/2024 IMPRESSION: Please see below. Exam: CT ABDOMEN PELVIS WO CONTRAST Date/Time of Exam: 10/11/2024 2:51 PM Reason For Exam: Scrotal swelling, recent surgery; history of scrotal infections. Diagnosis: See Reason for Exam. Technique: CT of the abdomen and pelvis was performed without the administration of intravenous contrast. Comparison: 05/26/2024. FINDINGS: Evaluation of the vasculature and solid organs are limited without the use of contrast. There is beam hardening artifact associated with orthopedic hardware. Lower Chest: There is a small right pleural effusion. Aorta/Vasculature: The aorta is nonaneurysmal. Lymph Nodes: There are enlarged bilateral inguinal lymph nodes measuring up to 2.0 cm in short axis dimension. Liver: The liver has a cirrhotic morphology. Gallbladder and Biliary: There is cholelithiasis. There is no evidence of acute inflammation. There is no biliary ductal dilatation. Spleen: The spleen is within normal limits. Pancreas: The pancreas is within normal limits. Adrenal Glands: The adrenal glands are within normal limits. Kidneys: There is a moderate degree of nonspecific relatively symmetric perinephric fat stranding which is unchanged and potentially chronic. There is no evidence of a discrete fluid collection. There is no obstructive uropathy. Stomach: The stomach is within normal limits. Bowel: The bowel loops are normal in position and caliber. There is a moderate amount of stool. There are no focal inflammatory changes. Appendix: The appendix is not definitively visualized. There are no secondary signs of acute appendicitis. Peritoneum: There is no free air or abnormal free fluid. Urinary Bladder: The urinary bladder is within normal limits. Pelvic Reproductive Structures: There is no significant pelvic reproductive structure pathology. Subcutaneous Soft Tissues: There is a prominent degree of nonspecific body wall and scrotal edema which may in part reflect third spacing/volume overload with infectious pathology involving the scrotum being difficult to entirely exclude given clinical history. There is no gross evidence of a discrete fluid collection given limitations of lack of contrast. There is no apparent subcutaneous emphysema. Bones: There is partial visualization of multiple subacute healing right rib fractures. IMPRESSION: Prominent nonspecific scrotal edema without gross evidence of a discrete fluid collection given limitations of lack of contrast which may in part be infectious in etiology given clinical history; scrotal ultrasound could assess further if clinically indicated. Nonspecific inguinal lymphadenopathy which may be reactive. Additional incidental findings as above. Rosette Myles MD CT ORDERABLES Final Result * (ABNORMAL) DIABETES EYE EXAM (09/01/2024 9:56 AM CHEMICAL ETCHING PROCESSOR) Abstract Provider HEALTH MAINTENANCE Edited Resu lt - Final * (ABNORMAL) MICROALBUMIN/CREATININE RATIO, RANDOM UR (08/16/2024 11:21 AM CHEMICAL ETCHING PROCESSOR) Creatinine, Urine 24 20 - 320 mg/dL [facility] MICROALBUMIN, URINE 1.0 See Note: mg/dL [email or web address] Comment: Reference Range: Reference Range Not established MICROALBUMIN/CREAT RATIO, UR 42(H) <30 mg/g creat [facility] Comment: The ADA defines abnormalities in albumin excretion as follows: Albuminuria Category Result (mg/g creatinine) Normal to Mildly increased <30 Moderately increased 30-299 Severely increased > OR = 300 The ADA recommends that at least two of three specimens collected within a 3-6 month period be abnormal before considering a patient to be within a diagnostic category. Test Performed at: [facility] [address] [facility] [place] [address] Rodger Almaguer MD Urine URINE SPECIMEN OBTAINED BY CLEAN CATCH PROCEDURE / Unknown 08/16/2024 11:21 AM CHEMICAL ETCHING PROCESSOR 08/17/2024 3:55 AM CHEMICAL ETCHING PROCESSOR Jose Horn [employer] URINE ORDERABLES Final Res ult [facility] [phone] [facility] [address] [facility] [place] [address] * (ABNORMAL) LIPID PANEL (07/02/2024 12:07 PM CHEMICAL ETCHING PROCESSOR) CHOLESTEROL 105 <200 mg/dL [facility] HDL 35(L) > OR = 40 mg/dL [facility] TRIGLYCERIDE 73 <150 mg/dL [email or web address] LDL CALCULATED 55 mg/dL (calc) [facility] Comment: Reference range: <100 Desirable range <100 mg/dL for primary prevention; <70 mg/dL for patients with CHD or diabetic patients with > or = 2 CHD risk factors. LDL-C is now calculated using the Álvaro calculation, which is a validated novel method providing better accuracy than the Friedewald equation in the estimation of LDL-C. Jarad PINTO et al. BRENNA. 2013;310(19): 3769-8461 (http://education.kWhOURS/faq/KMD071) CHOL/HDL RATIO 3.0 <5.0 (calc) [facility] NON-HDL CHOLESTEROL 70 <130 mg/dL (calc) [facility] Comment: For patients with diabetes plus 1 major ASCVD risk factor, treating to a non-HDL-C goal of <100 mg/dL (LDL-C of <70 mg/dL) is considered a therapeutic option. Test Performed at: [facility] [place] [address] Rodger Almaguer MD Blood 07/02/2024 12:0 7 PM CHEMICAL ETCHING PROCESSOR 07/03/2024 4:37 AM CHEMICAL ETCHING PROCESSOR Jose Horn [employer] CHEMISTRY ORDERABLES Final Result [facility] [phone] [address] * (ABNORMAL) HEMOGLOBIN A1C (06/03/2024 12:17 PM CDT) HEMOGLOBIN A1C 7.6(H) <5.7 % of total Hgb [facility] Comment: For someone without known diabetes, a hemoglobin A1c value of 6.5% or greater indicates that they may have diabetes and this should be confirmed with a follow-up test. For someone with known diabetes, a value <7% indicates that their diabetes is well controlled and a value greater than or equal to 7% indicates suboptimal control. A1c targets should be individualized based on duration of diabetes, age, comorbid conditions, and other considerations. Currently, no consensus exists regarding use of hemoglobin A1c for diagnosis of diabetes for children. ESTIMATED AVERAGE GLUCOSE (MG/DL) 171 mg/dL [facility] ESTIMATED AVERAGE GLUCOSE (MMOL/L) 9.5 mmol/L [facility] Comment: FASTING:UNKNOWN FASTING: UNKNOWN Test Performed at: [facility] [place] [address] Rodger Almaguer MD Blood 06/03/2024 12:1 7 PM CDT 06/03/2024 12:18 PM CDT Rosita Carpio DO CHEMISTRY ORDERABLES Final Result [facility] [phone] [facility] [address] [address] [phone] from Last 3 Months or Most Recently Relevant to Health Maintenance Insurance MEDICAID [facility] DUAL COMPLETE HMO [facility] [id number] Advance Directives For more information, please contact: [phone] * Full Code (Latest Code Status on File) Date Activated Date Inactivated Comments 11/16/2024 10:48 AM 11/20/2024 2:45 PM * Full Code Date Activated Date Inactivated Comments 10/11/2024 7:14 PM 10/14/2024 12:16 PM * Full Code Date Activated Date Inactivated Comments 05/27/2024 3:54 AM 05/31/2024 6:49 PM * Full Code Date Activated Date Inactivated Comments 03/22/2024 2:11 PM 03/23/2024 2:25 PM Care Teams Sciences Dean Relationship Specialty Start Date End Date Rosita Carpio DO [address] [place] [id number] PCP - General Family Practice 06/05/23
--- OUTSIDE RECORDS SUMMARY | 2025-02-14 09:06 | XMS_ITS | Encounter Summary ---
Author Organization [facility] Address [address] [place] [address] Care Team Providers Care Field Attendant Name Role Phone Rosita Carpio DO Primary Care Provider [phone] Encounter Details Date Type Department Care Team (Late st Contact Info) Description 12/21/2024 Results Follow-Up [facility] [place] [address] [place] [address] November, [facility] [address] [place] [address] BASIC METABOLIC PANEL, CBC WITH DIFFERENTIAL, TEST AUTHORIZATION, VITAMIN B12 AND FOLATE Social History Tobacco Use Types Packs/Day Years Used Date Smoking Tobacco: Former Cigarettes Passive Smoke Exposure: Past Smokeless Tobacco: Never Alcohol Use Standard Drinks/Week Comments Yes 0 [...] encounter Miscellaneous Notes * Telephone Encounter - Nola Barnett LPN - 12/21/2024 3:53 PM CDT 12/21/2024 3:53 PM Called and notified patient of results. Pt verbalized understanding. Pt is ok with going to hematology in [place]. [facility] been [facility] and B12/Folate added. Nola FLETCHER * Telephone Encounter - Nola Barnett LPN - 12/21/2024 3:45 PM CDT ----- Message from November sent at 12/21/2024 3:20 PM CDT ----- Can [facility] call [facility] and add a vitamin B12 and folate. Let Axel know his kidney function is the same as 2 weeks ago. We will keep an eye on this. His platelets have went down again. Tell him I am going to add a vitamin B12 and folate to make sure this is causing his low platelets. If that looks okay find out if he would be okay seeing a assistant controller since his platelets have been low for so long. documented in this encounter Plan of Treatment Upcoming Encounters Date Type Department Care Team (Late st Contact Info) Description 04/28/2025 2:30 PM CDT Office Visit [facility] [address] [address] Whitney [place], [address] [phone] 05/04/2025 8:40 AM CDT Office Visit [facility] [address] [place] [address] Rosita Carpio, DO [address] [place] [address] 07/08/2025 10:20 AM MULTIMEDIA EDITOR Office Visit [facility] [address] [place] [phone] Jacob Hornvenkateshmarnie Glover, [facility] [address] [place] [address] documented as of this encounter Results * VITAMIN B12 AND FOLATE (12/31/2024 8:05 AM CDT) VITAMIN B12 415 200 - 1100 pg/mL [facility] FOLATE, SERUM 7.5 ng/mL [facility] Comment: Reference Range Low: <3.4 Borderline: 3.4-5.4 Normal: >5.4 Test Performed at: [facility] [address] [place] [address] Rodger Almaguer MD Blood 12/31/2024 8:05 AM CDT 01/01/2025 3:19 AM CDT November [facility] CHEMISTRY ORDERABLES Final Resul t [facility] [phone] [facility] [employer] [facility] [place] [address] documented in this encounter Visit Diagnoses Diagnosis Thrombocytopenia- Primary Thrombocytopenia, unspecified Chronic anemia Anemia, unspecified documented in this encounter Additional Health Concerns Assessment Noted Time PHQ-9 Depression Total Score: 1 12/07/19 25 8:39 AM CDT documented as of this encounter Care Teams Field Attendant Relationship Specialty Start Date End Date Rosita Carpio DO [address] [place] [address] PCP - General Family Practice 06/05/23 documented as of this encounter
--- OUTSIDE RECORDS SUMMARY | 2025-02-14 09:06 | XMS_ITS | Patient Health Record ---
Author Organization [employer] Address [address] [place] [address] Care Team Providers Care Matching Machine Operator Name Role Phone CHASTITY PARKER Unavailable [phone] SKYLA JACINTO Unavailable [phone] Allergies Allergen (clinical drug ingredient) Drug/Non Drug Allergy documented on EMR Reaction Allergy Type Onset Date Status Penicillin Unknown Drug Allergy Active Results Component Value Reference Range Notes Urinalysis, Routine Reviewed date:03/01/2024 01:50:02 PM Interpretation: Performing Lab: Notes/Report: Urine-Color yellow Appearance clear Glucose 3+ Bilirubin - Ketones - Specific [place] 1.015 Occult Blood 2+ pH 6.0 Urine Protein - Urobilinogen,Semi-Qn - Nitrite, Urine - WBC Esterase 1+ Urinalysis, Routine Reviewed date:05/03/2024 01:43:53 PM Interpretation: Performing Lab: Notes/Report: Urine-Color yellow Appearance clear Glucose 3+ Bilirubin - Ketones - Specific [place] 1.010 Occult Blood 2+ pH 6.5 Urine Protein - Urobilinogen,Semi-Qn - Nitrite, Urine - WBC Esterase 1+ Urinalysis, Routine Reviewed date:07/22/2024 09:48:44 AM Interpretation: Performing Lab: Notes/Report: Urine-Color yellow Appearance cloudy Glucose 3+ Bilirubin - Ketones - Specific [place] 1.015 Occult Blood 3+ pH 6.0 Urine Protein - Urobilinogen,Semi-Qn - Nitrite, Urine - WBC Esterase 1+ Glucometer WBG Reviewed date:08/25/2024 03:14:35 PM Interpretation: Performing Lab: Notes/Report: Glucometer WBG 116 65-110 MG/DL Notify ~Notify RN~Meter: [id number]~Operato r: [id number] FREE CHRISTOPHER Testing performed at: [address] [place] [address] CLIA ID [id number] Immature PLT Fraction Reviewed date:08/19/2024 09:30:41 AM Interpretation: Performing Lab: Notes/Report: Immature PLT Fraction 16.7 1.6-7.1 % Platelet 63 150-400 X10'3 Testing perfor med at: [address] [place] [address] CLIA ID [id number] UA Reflex -- [id number] Reviewed date:08/19/2024 09:30:41 AM Interpretation: Performing Lab: Notes/Report: Testing performed at: [address] [place] [address] CLIA ID [id number] Color UA Yellow Clarity UA Clear Specific gravity UA 1.007 1.005-1.030 Urine pH 5.5 5.0-8.0 Urine Glucose Negative Urine Bilirubin Negative Urine Ketone Negative Urine Blood Negative Urine Protein Negative Urobilinogen 0.2 0.1-1.0 Urine Nitrite Negative Urine Leukocyte Trace Normal UA Yes Urine Culture No Culture Urine Reviewed date:2024 08:24:43 AM Interpretation: Performing Lab: Notes/Report: Testing performed at: [address] [place] [address] CLIA ID [id number] Culture Urine AXEL Albert Culture Urine t: Culture Urine Culture Urine Accessio [id number] Culture Urine n: Culture Urine Microbiology Culture Urine PROCEDURE: Culture U rine [] Culture Urine SOURCE: Urine BODY SITE: Culture Urine COLLECTED DATE/TIME: 08/18/2024 16:00 MALT HOUSE SUPERVISOR RECEIVED DATE/TIME: 08/18/2024 17:55 MALT HOUSE SUPERVISOR Culture Urine START DATE/TIME: 08/18/2024 17:55 MALT HOUSE SUPERVISOR FREE TEXT SOURCE: Culture Urine FINAL REPORT Culture Urine Final Report [] Culture Urine Verified Date/Time: 08/21/2024 07:39 MALT HOUSE SUPERVISOR Culture Urine > 10,000 cfu/ml mixe d superficial gareth Culture Urine Multiple microorgani sms present Culture Urine Probable contamination CBC w/ Auto Diff Reviewed date:08/19/2024 09:30:41 AM Interpretation: Performing Lab: Notes/Report: Testing performed at: [address] [place] [address] CLIA ID [id number] WBC 4.4 4.5-11.0 X10'3 RBC 4.39 4.50-5.90 X10'6 Hgb 12.8 13.5-17.5 G/DL Hct 40.5 41.0-53.0 % MCV 92.3 80.0-100.0 FL MCH 29.2 27.0-31.0 PG MCHC 31.6 31.0-37.0 G/DL Platelet 63 150-400 X10'3 RDW-SD 54.2 35.0-49.0 FL RDW-CV 15.6 12.2-15.6 % MPV ---- 9.2-12.0 FL Neutro Auto% 68.5 40.0-70.0 % Lymph Auto% 17.3 22.0-44.0 % [place] Auto% 8.8 3.0-7.0 % Eos Auto% 4.5 2.0-4.0 % Baso Auto% 0.7 0.0-1.0 % Imm Gran% .2 .0-.4 % Neutro Abs 3.05 .80-7.70 Absolute Neutrophil Count 3050 Lymph Abs .77 .10-4.10 [place] Abs .39 .20-1.00 Eos Abs .20 .00-.40 Baso Abs .03 .00-.20 Imm Gran Abs .01 .00-.10 NRBC# .00 .00-.20 NRBC% .00 .00-.20 /100 int act WBC's Basic Metabolic Panel Reviewed date:08/19/2024 09:30:41 AM Interpretation: Performing Lab: Notes/Report: Testing performed at [facility], [address] [place] [address] [place] [address]. CLIA ID#: [id number] R-onhufh-s-benzoquinone imine (NAPQI) is a metabolite of acetaminophen, NAPQI concentrations of apparoximately 10 mg/L correlation to toxic levels of acetaminophen demonstrates a greater than or equil to 10% change in results. NAPQI concentrations greater than this may lead to falsely depressed results for patient samples. Calculation performed from GFR calculator provided by the [employer]. Glomerular Filtration rate(GRF) is the best overall index of kidney function. Normal GFR varies according to age,sex, body size, and declines with age. The [employer] recommends using the CKD-EPI Creatinine Equation(202) to estimate GFR. Testing performed at: [address] [place] [address] CLIA ID [id number] Use of this assay is not recommended for patients undergoing treatment with phenindione, due to the potential for falsely depressed results. Sodium 139 136-145 MMOL/L Potassium 3.8 3.5-5.1 MMOL/L Chloride 104 98-107 MMOL/L CO2 28.6 20.0-31.0 MMOL/L Glucose Serum 116 71-110 MG/DL BUN 43 7-21 MG/DL Creat 1.43 .57-1.17 MG/DL GFR 51.7 Anion Gap 10 5-15 BUN/Creat Ratio 30.1 12.0-20.0 % Calcium 9.4 8.7-10.4 MG/DL Osmo Serum,Calculated 300 280-300 MOSM/KG UTI Pathogen Panel PCR Reviewed date:03/02/2024 12:29:48 PM Interpretation: Performing Lab: Notes/Report: Reason For Referral No Information Medications Medication SIG (Take, Route, Frequency, Duration) Notes Start Date End Date Status Potassium Chloride ER 20 MEQ 1 tablet with food Orally Once a day Active Bumetanide 2 MG 1 tablet Orally three times a day Active Lisinopril 5 MG 0.5 Orally Once a day /2 tab Active Omeprazole 20 MG 1 capsule 30 minutes before morning meal Orally Once a day As needed as needed Active Atorvastatin Calcium 40 MG 1 tablet Orally Once a day Active Aspirin 81 81 MG 1 tablet Orally Once a day Active Allopurinol 100 MG 0.5 Orally Once a day Active Escitalopram Oxalate 10 MG 1 tablet Orally Once a day Active Glimepiride 2 MG 1 tablet with breakfast or the first main meal of the day Orally Once a day Not-Taking Metoprolol Succinate 25 MG 1 capsule Orally Every other day 1 every other day Active Victoza 18 MG/3ML as directed Subcutaneous Not-Taking Acidophilus 100 MG as directed Orally Active Cipro 500 MG 1 tablet Orally every 12 hrs Active Farxiga 10 MG 1 tablet Orally Once a day Not-Taking Tamsulosin HCl 0.4 MG 1 capsule Orally daily for 90 days Active Social History Tobacco Use: Social History Observation Description Date Details (start date - stop date) Former Smoker NA - NA Tobacco Control (Standard) Question Answer Notes Tobacco use: Former smoker How long has it been since you last smoked? Светланаa ter than 10 years Problems Problem Type SNOMED Code ICD Code Onset Dates Problem Status W/U Status Risk Notes Problem Phimosis (615788417) Phimosis (N47.1) Active confirmed Problem Benign prostatic hyperplasia (176944116) BPH (benign prostatic hyperplasia) (N40.0) Active confirmed Problem Urinary incontinence (773788532) Urinary incontinence (R32) Active confirmed Problem Type II diabetes mellitus without complication (695421350) Type 2 diabetes mellitus not at goal (E11.9) Active confirmed Problem Varicocele (82274697) Varicocele (I86.1) Active confirmed Problem Type II diabetes mellitus without complication (977518452) Diabetes (E11.9) Active confirmed Problem Disorder of penis (81472387) Penile edema (N48.89) Active confirmed Problem Benign prostatic hypertrophy with outflow obstruction (149558455) BPH loc w urin obs/LUTS (N40.1) Active confirmed Vital Signs Heart Rate 62 /min 08/18/2024 Height-cm 160.02 cm 09/27/2024 Blood pressure diastolic 81 mm Hg 07/22/2024 Weight-kg 127.91 kg 09/27/2024 Height 63 in 09/27/2024 Blood pressure systolic 132 mm Hg 07/22/2024 Weight 282 lbs 09/27/2024 BMI 49.95 kg/m2 09/27/2024 Procedures Procedure Date Ordered Date Performed Result Body Sit e Bladder Scan 03/01/2024 03/01/2024 N/A Bladder Scan 05/03/2024 05/03/2024 N/A Bladder Scan 07/22/2024 07/22/2024 N/A Encounters Encounter Location Date Provider Diagnosis [facility], [facility] [address] [place] [address] 08/25/2024 JACINTO PINEDA [facility], [facility] [address] [place] [address] 03/01/2024 CHASTITY PARKER Scrotal edema N50.89 ; Penile edema N48.89 ; Uncircumcised male Z78.9 ; Varicocele I86.1 ; History of UTI Z87.440 ; Weak urinary stream R39.12 ; Urinary frequency R35.0 ; History of kidney stones Z87.442 ; History of smoking Z87.891 and Family history of prostate cancer Z80.42 [employer] [address] [place] [address] 05/03/2024 JACINTO PINEDA BPH loc w urin obs/L UTS N40.1 ; Urinary frequency R35.0 ; Weak urinary stream R39.12 ; Gross hematuria R31.0 ; Scrotal edema N50.89 ; Penile edema N48.89 ; Uncircumcised male Z78.9 ; Varicocele I86.1 ; History of UTI Z87.440 ; History of kidney stones Z87.442 ; History of smoking Z87.891 and Family history of prostate cancer Z80.42 [facility], [facility] [address] [place] [address] 07/22/2024 CHASTITY PARKER Weak urinary stream R39.12 ; Uncircumcised male Z78.9 ; Urinary frequency R35.0 ; Urinary incontinence R32 ; UTI (urinary tract infection) N39.0 ; BPH loc w urin obs/LUTS N40.1 ; Varicocele I86.1 ; History of smoking Z87.891 ; Family history of prostate cancer Z80.42 and Type 2 diabetes mellitus not at goal E11.9 [facility], [facility] [address] [place] [address] 08/18/2024 CHASTITY PARKER Preoperative examination Z01.818 ; Phimosis N47.1 ; Uncircumcised male Z78.9 ; Weak urinary stream R39.12 ; Urinary frequency R35.0 ; Urinary incontinence R32 ; BPH loc w urin obs/LUTS N40.1 ; Varicocele I86.1 ; History of smoking Z87.891 ; Family history of prostate cancer Z80.42 and Type 2 diabetes mellitus not at goal E11.9 [address], [facility] [address] [place] [address] 09/27/2024 JACINTO PINEDA Phimosis N47.1 ; Uncircumcised male Z78.9 ; Weak urinary stream R39.12 ; Urinary frequency R35.0 ; Urinary incontinence R32 ; BPH loc w urin obs/LUTS N40.1 ; Varicocele I86.1 ; History of smoking Z87.891 ; Family history of prostate cancer Z80.42 and Type 2 diabetes mellitus not at goal E11.9 [facility] [address] [place] [address] 03/02/2024 CHASTITY PARKER [facility] [address] [place] [address] 03/02/2024 CHASTITY PARKER [facility] [address] [place] [address] 06/23/2024 CHASTITY PARKER Diabetes E11.9 [facility] [address] [place] [address] 07/20/2024 JACINTO PINEDA [facility] [address] [place] [address] 07/27/2024 CHASTITY PARKER Gross hematuria R31. 0 and Pre-op exam Z01.818 [facility] [address] [place] [address] 01/24/2025 CHASTITY PARKER Assessments Encounter Date Diagnosis (ICD Code) Assessment Notes Treatment Notes Treatment Clinical Notes Section Notes 03/01/2024 Scrotal edema (ICD-10 - N50.89) 03/01/2024 Penile edema (ICD-10 - N48.89) 05/03/2024 Urinary frequency (ICD-10 - R35.0) 73 y/o M with BPH with LUTS, scrotal and penile edema, and h/o stones with gross hematuria. Pt with penile and scrotal edema secondary to CHF. He has multipel medical co-morbiditie s along with edema that make him a poor surgical candidate. He will need to optimize both DM and CHF prior to scheduling dorsal slit. His LUTS are Flomax. Will continue. He will return in 3 months with UA/PVR or sooner with any concerns. All question were answered and pt is satisfied with plan of care Plan: - continue flomax -RTC 3 months with A1C, UA/PVR or call sooner with any concerns ITawanna, Scribe, am scribing for, and in the presence of, Dr. Pineda. I, Dr. Jacinto Pineda, personally performed the services prescribed in this documentation , as scribed by Tawanna Cardoza, in my presence, and it is both accurate and complete. 05/03/2024 BPH loc w urin obs/LUTS (ICD-10 - N40.1) 73 y/o M with BPH with LUTS, scrotal and penile edema, and h/o stones with gross hematuria. Pt with penile and scrotal edema secondary to CHF. He has multipel medical co-morbiditie s along with edema that make him a poor surgical candidate. He will need to optimize both DM and CHF prior to scheduling dorsal slit. His LUTS are Flomax. Will continue. He will return in 3 months with UA/PVR or sooner with any concerns. All question were answered and pt is satisfied with plan of care Plan: - continue flomax -RTC 3 months with A1C, UA/PVR or call sooner with any concerns ITawanna Scribe, rashard scribing for, and in the presence of, Dr. Pnieda. I, Dr. Jacinto Pineda, personally performed the services prescribed in this documentation , as scribed by Tawanna Cardoza, in my presence, and it is both accurate and complete. 06/23/2024 Diabetes (ICD-10 - E11.9) 07/22/2024 Weak urinary stream (ICD-10 - R39.12) 07/22/2024 Uncircumcised male (ICD-10 - Z78.9) 08/18/2024 Phimosis (ICD-10 - N47.1) 07/27/2024 Gross hematuria (ICD-10 - R31.0) 08/18/2024 Preoperative examination (ICD-10 - Z01.818) 09/27/2024 Phimosis (ICD-10 - N47.1) 74 yo male s/p Dorsal slit and Lysis of penile adhesions on 08/25/2024. Incision has healed. He has some edema of the penile foreskin but no evidence of infection today. Plan: RTC in 6 months with UA and PVR all questions answered 09/27/2024 Uncircumcised male (ICD-10 - Z78.9) 74 yo male s/p Dorsal slit and Lysis of penile adhesions on 08/25/2024. Incision has healed. He has some edema of the penile foreskin but no evidence of infection today. Plan: RTC in 6 months with UA and PVR all questions answered 09/27/2024 Weak urinary stream (ICD-10 - R39.12) 74 yo male s/p Dorsal slit and Lysis of penile adhesions on 08/25/2024. Incision has healed. He has some edema of the penile foreskin but no evidence of infection today. Plan: RTC in 6 months with UA and PVR all questions answered 07/27/2024 Pre-op exam (ICD-10 - Z01.818) 08/18/2024 Uncircumcised male (ICD-10 - Z78.9) 07/22/2024 Urinary frequency (ICD-10 - R35.0) 05/03/2024 Weak urinary stream (ICD-10 - R39.12) 73 y/o M with BPH with LUTS, scrotal and penile edema, and h/o stones with gross hematuria. Pt with penile and scrotal edema secondary to CHF. He has multipel medical co-morbiditie s along with edema that make him a poor surgical candidate. He will need to optimize both DM and CHF prior to scheduling dorsal slit. His LUTS are Flomax. Will continue. He will return in 3 months with UA/PVR or sooner with any concerns. All question were answered and pt is satisfied with plan of care Plan: - continue flomax -RTC 3 months with A1C, UA/PVR or call sooner with any concerns ITawanna Scribe, am scribing for, and in the presence of, Dr. Pineda. I, Dr. Jacinto Pineda, personally performed the services prescribed in this documentation , as scribed by Tawanna Cardoza, in my presence, and it is both accurate and complete. 03/01/2024 Uncircumcised male (ICD-10 - Z78.9) 03/01/2024 Varicocele (ICD-10 - I86.1) 05/03/2024 Gross hematuria (ICD-10 - R31.0) 73 y/o M with BPH with LUTS, scrotal and penile edema, and h/o stones with gross hematuria. Pt with penile and scrotal edema secondary to CHF. He has multipel medical co-morbiditie s along with edema that make him a poor surgical candidate. He will need to optimize both DM and CHF prior to scheduling dorsal slit. His LUTS are Flomax. Will continue. He will return in 3 months with UA/PVR or sooner with any concerns. All question were answered and pt is satisfied with plan of care Plan: - continue flomax -RTC 3 months with A1C, UA/PVR or call sooner with any concerns ITawanna Scrbetsy, am scribing for, and in the presence of, Dr. Pineda. I, Dr. Jacinto Pineda, personally performed the services prescribed in this documentation , as scribed by Tawanna Cardoza, in my presence, and it is both accurate and complete. 08/18/2024 Weak urinary stream (ICD-10 - R39.12) 07/22/2024 Urinary incontinence (ICD-10 - R32) 09/27/2024 Urinary frequency (ICD-10 - R35.0) 74 yo male s/p Dorsal slit and Lysis of penile adhesions on 08/25/2024. Incision has healed. He has some edema of the penile foreskin but no evidence of infection today. Plan: RTC in 6 months with UA and PVR all questions answered 08/18/2024 Urinary frequency (ICD-10 - R35.0) 09/27/2024 Urinary incontinence (ICD-10 - R32) 74 yo male s/p Dorsal slit and Lysis of penile adhesions on 08/25/2024. Incision has healed. He has some edema of the penile foreskin but no evidence of infection today. Plan: RTC in 6 months with UA and PVR all questions answered 07/22/2024 UTI (urinary tract infection) (ICD-10 - N39.0) 05/03/2024 Scrotal edema (ICD-10 - N50.89) 73 y/o M with BPH with LUTS, scrotal and penile edema, and h/o stones with gross hematuria. Pt with penile and scrotal edema secondary to CHF. He has multipel medical co-morbiditie s along with edema that make him a poor surgical candidate. He will need to optimize both DM and CHF prior to scheduling dorsal slit. His LUTS are Flomax. Will continue. He will return in 3 months with UA/PVR or sooner with any concerns. All question were answered and pt is satisfied with plan of care Plan: - continue flomax -RTC 3 months with A1C, UA/PVR or call sooner with any concerns ITawanna Scribe, am scribing for, and in the presence of, Dr. Pineda. I, Dr. Jacinto Pineda, personally performed the services prescribed in this documentation , as scribed by Tawanna Cardoza, in my presence, and it is both accurate and complete. 03/01/2024 History of UTI (ICD-10 - Z87.440) 03/01/2024 Weak urinary stream (ICD-10 - R39.12) 05/03/2024 Penile edema (ICD-10 - N48.89) 73 y/o M with BPH with LUTS, scrotal and penile edema, and h/o stones with gross hematuria. Pt with penile and scrotal edema secondary to CHF. He has multipel medical co-morbiditie s along with edema that make him a poor surgical candidate. He will need to optimize both DM and CHF prior to scheduling dorsal slit. His LUTS are Flomax. Will continue. He will return in 3 months with UA/PVR or sooner with any concerns. All question were answered and pt is satisfied with plan of care Plan: - continue flomax -RTC 3 months with A1C, UA/PVR or call sooner with any concerns ITawanna Scribe am scribing for, and in the presence of, Dr. Pineda. I, Dr. Jacinto Pineda, personally performed the services prescribed in this documentation , as scribed by Tawanna Cardoza, in my presence, and it is both accurate and complete. 08/18/2024 Urinary incontinence (ICD-10 - R32) 07/22/2024 BPH loc w urin obs/LUTS (ICD-10 - N40.1) 09/27/2024 BPH loc w urin obs/LUTS (ICD-10 - N40.1) 74 yo male s/p Dorsal slit and Lysis of penile adhesions on 08/25/2024. Incision has healed. He has some edema of the penile foreskin but no evidence of infection today. Plan: RTC in 6 months with UA and PVR all questions answered 09/27/2024 Varicocele (ICD-10 - I86.1) 74 yo male s/p Dorsal slit and Lysis of penile adhesions on 08/25/2024. Incision has healed. He has some edema of the penile foreskin but no evidence of infection today. Plan: RTC in 6 months with UA and PVR all questions answered 08/18/2024 BPH loc w urin obs/LUTS (ICD-10 - N40.1) 07/22/2024 Varicocele (ICD-10 - I86.1) 03/01/2024 Urinary frequency (ICD-10 - R35.0) 05/03/2024 Uncircumcised male (ICD-10 - Z78.9) 73 y/o M with BPH with LUTS, scrotal and penile edema, and h/o stones with gross hematuria. Pt with penile and scrotal edema secondary to CHF. He has multipel medical co-morbiditie s along with edema that make him a poor surgical candidate. He will need to optimize both DM and CHF prior to scheduling dorsal slit. His LUTS are Flomax. Will continue. He will return in 3 months with UA/PVR or sooner with any concerns. All question were answered and pt is satisfied with plan of care Plan: - continue flomax -RTC 3 months with A1C, UA/PVR or call sooner with any concerns ITawanna Scribe, am scribing for, and in the presence of, Dr. Pineda. I, Dr. Jacinto Pineda, personally performed the services prescribed in this documentation , as scribed by Tawanna Cardoza, in my presence, and it is both accurate and complete. 05/03/2024 Varicocele (ICD-10 - I86.1) 73 y/o M with BPH with LUTS, scrotal and penile edema, and h/o stones with gross hematuria. Pt with penile and scrotal edema secondary to CHF. He has multipel medical co-morbiditie s along with edema that make him a poor surgical candidate. He will need to optimize both DM and CHF prior to scheduling dorsal slit. His LUTS are Flomax. Will continue. He will return in 3 months with UA/PVR or sooner with any concerns. All question were answered and pt is satisfied with plan of care Plan: - continue flomax -RTC 3 months with A1C, UA/PVR or call sooner with any concerns ITawanna Scribe, am scribing for, and in the presence of, Dr. Pineda. I, Dr. Jacinto Pineda, personally performed the services prescribed in this documentation , as scribed by Tawanna Cardoza, in my presence, and it is both accurate and complete. 03/01/2024 History of kidney stones (ICD-10 - Z87.442) 07/22/2024 History of smoking (ICD-10 - Z87.891) 08/18/2024 Varicocele (ICD-10 - I86.1) 09/27/2024 History of smoking (ICD-10 - Z87.891) 74 yo male s/p Dorsal slit and Lysis of penile adhesions on 08/25/2024. Incision has healed. He has some edema of the penile foreskin but no evidence of infection today. Plan: RTC in 6 months with UA and PVR all questions answered 08/18/2024 History of smoking (ICD-10 - Z87.891) 09/27/2024 Family history of prostate cancer (ICD-10 - Z80.42) 74 yo male s/p Dorsal slit and Lysis of penile adhesions on 08/25/2024. Incision has healed. He has some edema of the penile foreskin but no evidence of infection today. Plan: RTC in 6 months with UA and PVR all questions answered 05/03/2024 History of UTI (ICD-10 - Z87.440) 73 y/o M with BPH with LUTS, scrotal and penile edema, and h/o stones with gross hematuria. Pt with penile and scrotal edema secondary to CHF. He has multipel medical co-morbiditie s along with edema that make him a poor surgical candidate. He will need to optimize both DM and CHF prior to scheduling dorsal slit. His LUTS are Flomax. Will continue. He will return in 3 months with UA/PVR or sooner with any concerns. All question were answered and pt is satisfied with plan of care Plan: - continue flomax -RTC 3 months with A1C, UA/PVR or call sooner with any concerns ITawanna Scribe, am scribing for, and in the presence of, Dr. Pineda. I, Dr. Jacinto Pineda, personally performed the services prescribed in this documentation , as scribed by Tawanna Cardoza, in my presence, and it is both accurate and complete. 07/22/2024 Family history of prostate cancer (ICD-10 - Z80.42) 03/01/2024 History of smoking (ICD-10 - Z87.891) 03/01/2024 Family history of prostate cancer (ICD-10 - Z80.42) 05/03/2024 History of kidney stones (ICD-10 - Z87.442) 73 y/o M with BPH with LUTS, scrotal and penile edema, and h/o stones with gross hematuria. Pt with penile and scrotal edema secondary to CHF. He has multipel medical co-morbiditie s along with edema that make him a poor surgical candidate. He will need to optimize both DM and CHF prior to scheduling dorsal slit. His LUTS are Flomax. Will continue. He will return in 3 months with UA/PVR or sooner with any concerns. All question were answered and pt is satisfied with plan of care Plan: - continue flomax -RTC 3 months with A1C, UA/PVR or call sooner with any concerns ITawanna Scribe, am scribing for, and in the presence of, Dr. Pineda. I, Dr. Jacinto Pineda, personally performed the services prescribed in this documentation , as scribed by Tawanna Cardoza, in my presence, and it is both accurate and complete. 07/22/2024 Type 2 diabetes mellitus not at goal (ICD-10 - E11.9) 09/27/2024 Type 2 diabetes mellitus not at goal (ICD-10 - E11.9) 74 yo male s/p Dorsal slit and Lysis of penile adhesions on 08/25/2024. Incision has healed. He has some edema of the penile foreskin but no evidence of infection today. Plan: RTC in 6 months with UA and PVR all questions answered 08/18/2024 Family history of prostate cancer (ICD-10 - Z80.42) 08/18/2024 Type 2 diabetes mellitus not at goal (ICD-10 - E11.9) 05/03/2024 History of smoking (ICD-10 - Z87.891) 73 y/o M with BPH with LUTS, scrotal and penile edema, and h/o stones with gross hematuria. Pt with penile and scrotal edema secondary to CHF. He has multipel medical co-morbiditie s along with edema that make him a poor surgical candidate. He will need to optimize both DM and CHF prior to scheduling dorsal slit. His LUTS are Flomax. Will continue. He will return in 3 months with UA/PVR or sooner with any concerns. All question were answered and pt is satisfied with plan of care Plan: - continue flomax -RTC 3 months with A1C, UA/PVR or call sooner with any concerns ITawanna Scribe, am scribing for, and in the presence of, Dr. Pineda. I, Dr. Jacinto Pineda, personally performed the services prescribed in this documentation , as scribed by Tawanna Cardoza, in my presence, and it is both accurate and complete. 05/03/2024 Family history of prostate cancer (ICD-10 - Z80.42) 73 y/o M with BPH with LUTS, scrotal and penile edema, and h/o stones with gross hematuria. Pt with penile and scrotal edema secondary to CHF. He has multipel medical co-morbiditie s along with edema that make him a poor surgical candidate. He will need to optimize both DM and CHF prior to scheduling dorsal slit. His LUTS are Flomax. Will continue. He will return in 3 months with UA/PVR or sooner with any concerns. All question were answered and pt is satisfied with plan of care Plan: - continue flomax -RTC 3 months with A1C, UA/PVR or call sooner with any concerns Tawanna Falcon Scribe, am scribing for, and in the presence of, Dr. Pineda. I, Dr. Jacinto Pineda, personally performed the services prescribed in this documentation , as scribed by Tawanna Cardoza, in my presence, and it is both accurate and complete. 03/01/2024 Other UA appears infected. PVR 0ml. Send for PCR, call with results and treat as indicated. He is on Farxiga, we have discussed that glucosuria s/e of this medication increases risk of UTI and fungal infections, which may be worsening balanitis due to being uncircumsized likley contributing to patient's severe penile and scrotal edema, but his heart failure is likely the biggest culprit of edema. Due to patient preference, I asked that Dr. Pineda assist with genital examination. Dr. Pineda was able to feel the head of the penis which is deeply inverted down into the forskin near the base, but nothing is visible due to swelling and retraction is not possible. Discussed need for dorsal slit, but he is not a good candidate at this time due to severe edema. We have discussed wearing scrotal support and scrotal elevation, which will also help with degree of varicoceles seen on imaging. Recommend f/u with PCP to discuss possible changes to diuretic therapy as he is still having this degree of swelling on Bumex 3x per day. Request PSA and urine culture from PCP. I will start him on Tamsulosin due to bothersome LUTS. Administration and s/e profile reviewed. He will RTC in [address] Pineda with symptom reassessment. All questions that were asked were answered. Patient satisfied with plan of care. 07/22/2024 Other UA appears infected. He is currently taking Cipro. Ask PCP to send urine culture once finalized. PVR 0ml today. His CHF and DM improved steadily over the past few months. He is eager to proceed with dorsal slit as previously discussed to help with urination and incontinence. How the procedure was performed was discussed along with risks/benefits/alt ernatives and postprocedural expectations. Patient is on daily ASA and has history of CHF. He is under care of Cardiology at [facility]. He is unsure of Dr. dumont as he recently established there, last seen in May. Denies problems with anesthesia in the past, no new medications or diagnoses since last visit. All questions that were asked were answered and elects to proceed with procedure as scheduled. Patient will RTC postoperatively and is satisfied with plan of care. Schedule for dorsal slit, possible circumcision with Dr. Pineda at [facility]. 08/18/2024 Other Patient schedul ed for dorsal slit on 08/25/[address] Pineda at [facility]. How the procedure was performed was discussed along with risks/benefits/alt ernatives and postprocedural expectations. Patient takes daily ASA, understands to hold x 7 days prior to procedure. Denies problems with anesthesia in the past, he wears a BIPAP at night. No new medications or diagnoses since last visit. Patient has presurgical testing at [facility]. Urine sent for culture and we will treat as indicated preoperatively. All questions that were asked were answered and elects to proceed with procedure as scheduled. Patient will RTC postoperatively and is satisfied with plan of care. Plan Of Treatment Pending Test Test Name Order Date Basic Metabolic Panel 07/27/2024 CBC w/ Auto Diff 07/27/2024 Culture Urine Reflex 07/27/2024 Hemoglobin A1c 06/23/2024 Electrocardiogram, 12 Lead Tracing-[id number] 07/27/2024 Next Appt Details Provider Name:JACINTO Barrett Titus, 03/28/2025 02:20:00 PM, [address] [place], [address], Insurance Providers Payer Name Payer Address Payer Phone Subscriber Number Group Number Insured Name Patient Relationship to Insured Coverage Start Date Coverage End Date [place] [address] [facility] [id number] Axel Wilcox Self - patient is the insured [facility] [address] [address] [place], [place] [id number] Axel Wilcox Self - patient is the insured Medical (General) History Medical History History ICD Code diabetes depression HTN Heart disease ED Incontinence of urine H/O kidney stones Surgical History Surgery Date(Month/Year) appendectomy abdominal surgery watchman device cataracts 2018 dorsal slit Hospitalization History Reason Date(Month/Year) infection in legs 2023
--- NOTE | 2025-02-14 09:29 | XR_ITS ---
WS: [id number] Exam: XR foot RT min 3V* [id number] Date/Time of Exam: 02/14/2025 9:29 AM Reason For Exam: plantar infection No acute fracture. Probable old fracture deformity of the first proximal phalanx. Degenerative changes in the IP joints and first MP joint. No soft tissue foreign bodies are seen. No sign of bone destruction. Calcaneal spurs. XR/XR foot RT min 3V* [id number] IMPRESSION: 1. No acute fracture or bone destruction. 2. Other nonacute findings as above.
--- NOTE | 2025-02-14 09:32 | W.ED.EXTPRO ---
Documented by User: ZOYA Chauhan 02/14/25 11:42 HPI - Extremity Problem General: Chief complaint: Skin/Abscess/Foreign Body Stated complaint: R foot pain and spot on it Time Seen by Provider: 02/14/25 09:03 Source: patient Mode of arrival: wheelchair Limitations: no limitations History of Present Illness: Patient is a nice 74-year-old male here for concerns of a blister to the plantar aspect of his right foot that he noticed approximately 3 days ago. He is a known diabetic. States his sugars have been very uncontrolled over the past several days. He does see Dr. Meadows for previous foot issues. He has not noticed any drainage from the wound. He does report his right foot is red compared to the left which is abnormal. Patient has not had any fevers although is currently chilling in his room. Vital signs are stable upon arrival. MD Complaint: extremity pain Onset (ago): day(s) Pain Consistency: constant Location: right and lower extremity (foot) Radiation: none Relieving factors: nothing Exacerbating factors: nothing Associated symptoms: Reports no associated symptoms; Deny chest pain or fever(s) Related Data Home Medications ?Medication ?Instructions ?Recorded ?Confirmed aspirin 81 mg tablet,delayed 81 mg PO DAILY 02/26/24 02/14/25 release atorvastatin 40 mg tablet 40 mg PO DAILY 02/26/24 02/14/25 bumetanide 2 mg tablet 2 mg PO BID 02/26/24 02/14/25 dapagliflozin propanediol 10 mg 10 mg PO DAILY 02/26/24 02/14/25 tablet (Farxiga) escitalopram oxalate 10 mg tablet 10 mg PO DAILY 02/26/24 02/14/25 lisinopril 5 mg tablet 5 mg PO DAILY 02/26/24 02/14/25 metoprolol succinate 25 mg 25 mg PO DAILY 02/26/24 02/14/25 tablet,extended release 24 hr potassium chloride 20 mEq/15 mL 20 meq PO BID 02/26/24 02/14/25 oral liquid glimepiride 2 mg tablet 2 mg PO DAILY 09/07/24 02/14/25 tamsulosin 0.4 mg capsule (Flomax) 0.4 mg PO QPM 09/07/24 02/14/25 dulaglutide 0.75 mg/0.5 mL 0.75 mg SUBCUT Q7D 01/24/25 02/14/25 subcutaneous pen injector ([facility]) allopurinol 300 mg tablet 150 mg PO BID 02/14/25 02/14/25 Previous Rx's ?Medication ?Instructions ?Recorded diabteic shoes w/ 3 inserts #1 ea 02/19/24 Custom Molded Orthotics #1 ea 10/01/24 diabetic shoes with 3 custom #1 ea 11/11/24 inserts Allergies Allergy/AdvReac Type Severity Reaction Status Date / Time Penicillins Allergy Unknown Verified 11/11/24 13:32 Review of Systems Const: Reports: chills; Denies: fever(s), body aches, fatigue or malaise Card: Denies: chest pain Resp: Denies: dyspnea GI: Denies: abdominal pain, nausea or vomiting Musc: Reports: extremity swelling (chronic bilateral LE lymphedema) and other (erythema to R foot/leg); Denies: neck pain or back pain Skin/Breast: Reports: other ( blister bottom of R foot) PFSH ED PFSH: Medical History Paroxysmal A-fib Presence of Watchman left atrial appendage closure device CAD (coronary artery disease) Thrombocytopenia Dystrophia unguium Peripheral neuropathy Ulcer of right foot with fat layer exposed Diabetic infection of right foot Type 2 diabetes mellitus Social History Smoking and tobacco/nicotine status: former use of tobacco/nicotine Physical Exam Const: COMMON NORMALS: no acute distress, patient oriented x3, no limitations, alert and well nourished GENERAL APPEARANCE: cooperative NUTRITIONAL APPEARANCE: obese ORIENTATION/CONSCIOUSNESS: Yes awake, Yes oriented to person, Yes oriented to place and Yes oriented to time Resp: COMMON NORMALS: normal respiratory effort and clear to auscultation bilaterally AUSCULTATION: clear to auscultation bilaterally Cardio: COMMON NORMALS: regular rate and regular rhythm RATE: regular rate RHYTHM: regular rhythm Extremity: GENERAL: Yes normal exam except as noted RIGHT LOWER EXTREMITY: Yes foot & digits OTHER: R foot/R lower leg is erythematous/warm to the touch; bilateral significant lymphedema; pt has a foul smelling plantar abscess to proximal plantar foot extending into webbing of 1-2 digits; no drainage Neuro: COMMON NORMALS: patient oriented x3 SENSORIUM/ORIENTATION: Yes alert, Yes oriented to person, Yes oriented to place and Yes oriented to time Skin: NARRATIVE SKIN EXAM: see above Course Consultations: Consultation #1: Dr. Meadows-will consult on patient, plan for OR/debridement Consultation #2: Dr. Yeung-accepts hospitalization Vital Signs: Vital signs: Vital Signs Temperature 97.4 F L 02/15/25 11:30 Pulse Rate 49 L 02/15/25 15:31 Respiratory Rate 21 H 02/15/25 15:31 Blood Pressure 110/65 02/15/25 15:31 Pulse Oximetry 93 02/15/25 15:31 Oxygen Delivery Me thod Room Air 02/15/25 15:31 MDM - Extremity (Nontraumatic) Medical Decision Making Patient is a nice 74-year-old male here with a right foot diabetic plantar foot infection/abscess. His vital signs are stable. Clinically he has a large foul-smelling abscess formation to his proximal plantar foot with significant cellulitis involving the foot and lower leg. He has chronic lymphedema. He is a diabetic. Labs showing a normal white count. He does have elevations to his inflammatory markers. Labs also consistent for chronic thrombocytopenia. He has chronic renal disease. His BUN/Cr today is 37/1.5. Previous records obtained and this seems to be at baseline. Patient has an allergy to penicillins thus was started on vancomycin and meropenem. Will speak to Dr. Meadows for consult for OR debridement. Will admit to hospitalist Dr. Yeung. Dr. Holley has also evaluated this patient and agrees with need for admission. Medical Records I reviewed the patient's medical records. Lab Data I reviewed the patient's lab results. 02/15/25 04:50 02/15/25 04:50 Radiology Impressions Foot X-Ray 02/14/25 09:29 IMPRESSION: 1. No acute fracture or bone destruction. 2. Other nonacute findings as above. Foot MRI 02/15/25 15:30 IMPRESSION: No evidence of acute osteomyelitis. No drainable abscess or fluid collection. Laboratory Results WBC 8.35 10^3/uL (3.29-11.43) 02/14/25 09:46 RBC 3.90 10^6/uL (3.85-5.65) 02/14/25 09:46 Hgb 12.30 g/dL (11.27-16.99) 02/14/25 09:46 Hct 37.6 % (37-53) 02/14/25 09:46 MCV 96.4 fl (82-101) 02/14/25 09:46 MCH 31.5 pg (27-33) 02/14/25 09:46 MCHC 32.7 g/dL (30-55) 02/14/25 09:46 RDW 15.5 % (12.1-15.1) H 02/14/25 09:46 Plt Count 77 10^3/cmm (157-399) L 02/14/25 09:46 MPV 12.9 fL (7.4-10.4) H 02/14/25 09:46 Neut % (Auto) 83.8 % 02/14/25 09:46 Lymph % (Auto) 5.7 % 02/14/25 09:46 [place] % (Auto) 8.0 % 02/14/25 09:46 Eos % (Auto) 1.6 % 02/14/25 09:46 Baso % (Auto) 0.4 % 02/14/25 09:46 Neut # (Auto) 7.00 10^3/uL (1.8-7.7) 02/14/25 09:46 Lymph # (Auto) 0.5 10^3/uL (0.8-4.8) L 02/14/25 09:46 [place] # (Auto) 0.7 10^3/uL (0.2-0.9) 02/14/25 09:46 Eos # (Auto) 0.1 10^3/uL (0.0-0.8) 02/14/25 09:46 Baso # (Auto) 0.0 10^3/uL (0.0-0.1) 02/14/25 09:46 Nucleated RBC % (auto) 0 % 02/14/25 09:46 Nucleated RBCs # 0.0 /100WBC 02/14/25 09:46 ESR 11 mm/hr (0-10) H 02/14/25 09:46 Sodium 137 mmol/L (136-145) 02/14/25 09:46 Potassium 4.3 mmol/L (3.5-5.1) 02/14/25 09:46 Chloride 100 mmol/L (98-107) 02/14/25 09:46 Carbon Dioxide 26 mmol/L (22-29) 02/14/25 09:46 Anion Gap 15.3 (5-19) 02/14/25 09:46 BUN 37 mg/dL (8-23) H 02/14/25 09:46 Creatinine 1.5 mg/dL (0.7-1.2) H 02/14/25 09:46 GFR Calculation Not Reportable 02/14/25 09:46 Glucose 145 mg/dL (65-115) H 02/14/25 09:46 Estimat Average Glucose 146 02/14/25 09:46 Hemoglobin A1c 6.7 % (4.0-6.0) H 02/14/25 09:46 Calculated Osmolality 295 mOsm/kg (285-295) 02/14/25 09:46 Calcium 9.2 mg/dL (8.5-10.5) 02/14/25 09:46 Total Bilirubin 1.8 mg/dL (0.15-1.2) H 02/14/25 09:46 AST 25 U/L (0-40) 02/14/25 09:46 ALT 19 U/L (0-41) 02/14/25 09:46 Alkaline Phosphatase 137 U/L (40-130) H 02/14/25 09:46 C-Reactive Protein 42.2 mg/L (0.0-4.9) H 02/14/25 09:46 Total Protein 8.2 g/dL (6.6-8.7) 02/14/25 09:46 Albumin 3.9 g/dL (3.5-5.2) 02/14/25 09:46 Globulin 4.3 g/dL (1.3-4.6) 02/14/25 09:46 All radiology interpretation(s) finalized by discharge Discharge Plan Discharge Patient Disposition: Admitted As Inpatient Admit Provider: Freddy Yeung Clinical Impression: Abscess of right foot, Diabetic infection of right foot, Cellulitis and abscess of foot, Thrombocytopenia Condition: Stable Coding Level of Care Code ED Armored Machine Operator for Chg Fwd Documented by User: Felipe Holley DO 02/15/25 17:32 HPI - Extremity Problem General: Chief complaint: Skin/Abscess/Foreign Body Stated complaint: R foot pain and spot on it Time Seen by Provider: 02/14/25 09:03 Related Data Home Medications ?Medication ?Instructions ?Recorded ?Confirmed aspirin 81 mg tablet,delayed 81 mg PO DAILY 02/26/24 02/14/25 release atorvastatin 40 mg tablet 40 mg PO DAILY 02/26/24 02/14/25 bumetanide 2 mg tablet 2 mg PO BID 02/26/24 02/14/25 dapagliflozin propanediol 10 mg 10 mg PO DAILY 02/26/24 02/14/25 tablet (Farxiga) escitalopram oxalate 10 mg tablet 10 mg PO DAILY 02/26/24 02/14/25 lisinopril 5 mg tablet 5 mg PO DAILY 02/26/24 02/14/25 metoprolol succinate 25 mg 25 mg PO DAILY 02/26/24 02/14/25 tablet,extended release 24 hr potassium chloride 20 mEq/15 mL 20 meq PO BID 02/26/24 02/14/25 oral liquid glimepiride 2 mg tablet 2 mg PO DAILY 09/07/24 02/14/25 tamsulosin 0.4 mg capsule (Flomax) 0.4 mg PO QPM 09/07/24 02/14/25 dulaglutide 0.75 mg/0.5 mL 0.75 mg SUBCUT Q7D 01/24/25 02/14/25 subcutaneous pen injector ([facility]) allopurinol 300 mg tablet 150 mg PO BID 02/14/25 02/14/25 Previous Rx's ?Medication ?Instructions ?Recorded diabteic shoes w/ 3 inserts #1 ea 02/19/24 Custom Molded Orthotics #1 ea 10/01/24 diabetic shoes with 3 custom #1 ea 11/11/24 inserts Allergies Allergy/AdvReac Type Severity Reaction Status Date / Time Penicillins Allergy Unknown Verified 11/11/24 13:32 PFSH ED PFSH: Medical History Paroxysmal A-fib Presence of Watchman left atrial appendage closure device CAD (coronary artery disease) Thrombocytopenia Dystrophia unguium Peripheral neuropathy Ulcer of right foot with fat layer exposed Diabetic infection of right foot Type 2 diabetes mellitus Social History Smoking and tobacco/nicotine status: former use of tobacco/nicotine Course Vital Signs: Vital signs: Vital Signs Temperature 97.4 F L 02/15/25 11:30 Pulse Rate 49 L 02/15/25 15:31 Respiratory Rate 21 H 02/15/25 15:31 Blood Pressure 110/65 02/15/25 15:31 Pulse Oximetry 93 02/15/25 15:31 Oxygen Delivery Me thod Room Air 02/15/25 15:31 MDM - Extremity (Nontraumatic) Medical Decision Making Patient is a nice 74-year-old male here with a right foot diabetic plantar foot infection/abscess. His vital signs are stable. Clinically he has a large foul-smelling abscess formation to his proximal plantar foot with significant cellulitis involving the foot and lower leg. He has chronic lymphedema. He is a diabetic. Labs showing a normal white count. He does have elevations to his inflammatory markers. Labs also consistent for chronic thrombocytopenia. He has chronic renal disease. His BUN/Cr today is 37/1.5. Previous records obtained and this seems to be at baseline. Patient has an allergy to penicillins thus was started on vancomycin and meropenem. Will speak to Dr. Meadows for consult for OR debridement. Will admit to hospitalist Dr. Yeung. Dr. Holley has also evaluated this patient and agrees with need for admission. Chart reviewed and patient discussed with midlevel. Agree with assessment and plan. Lab Data 02/15/25 04:50 02/15/25 04:50 Radiology Impressions Foot X-Ray 02/14/25 09:29 IMPRESSION: 1. No acute fracture or bone destruction. 2. Other nonacute findings as above. Foot MRI 02/15/25 15:30 IMPRESSION: No evidence of acute osteomyelitis. No drainable abscess or fluid collection. Laboratory Results WBC 8.35 10^3/uL (3.29-11.43) 02/14/25 09:46 RBC 3.90 10^6/uL (3.85-5.65) 02/14/25 09:46 Hgb 12.30 g/dL (11.27-16.99) 02/14/25 09:46 Hct 37.6 % (37-53) 02/14/25 09:46 MCV 96.4 fl (82-101) 02/14/25 09:46 MCH 31.5 pg (27-33) 02/14/25 09:46 MCHC 32.7 g/dL (30-55) 02/14/25 09:46 RDW 15.5 % (12.1-15.1) H 02/14/25 09:46 Plt Count 77 10^3/cmm (157-399) L 02/14/25 09:46 MPV 12.9 fL (7.4-10.4) H 02/14/25 09:46 Neut % (Auto) 83.8 % 02/14/25 09:46 Lymph % (Auto) 5.7 % 02/14/25 09:46 [place] % (Auto) 8.0 % 02/14/25 09:46 Eos % (Auto) 1.6 % 02/14/25 09:46 Baso % (Auto) 0.4 % 02/14/25 09:46 Neut # (Auto) 7.00 10^3/uL (1.8-7.7) 02/14/25 09:46 Lymph # (Auto) 0.5 10^3/uL (0.8-4.8) L 02/14/25 09:46 [place] # (Auto) 0.7 10^3/uL (0.2-0.9) 02/14/25 09:46 Eos # (Auto) 0.1 10^3/uL (0.0-0.8) 02/14/25 09:46 Baso # (Auto) 0.0 10^3/uL (0.0-0.1) 02/14/25 09:46 Nucleated RBC % (auto) 0 % 02/14/25 09:46 Nucleated RBCs # 0.0 /100WBC 02/14/25 09:46 ESR 11 mm/hr (0-10) H 02/14/25 09:46 Sodium 137 mmol/L (136-145) 02/14/25 09:46 Potassium 4.3 mmol/L (3.5-5.1) 02/14/25 09:46 Chloride 100 mmol/L (98-107) 02/14/25 09:46 Carbon Dioxide 26 mmol/L (22-29) 02/14/25 09:46 Anion Gap 15.3 (5-19) 02/14/25 09:46 BUN 37 mg/dL (8-23) H 02/14/25 09:46 Creatinine 1.5 mg/dL (0.7-1.2) H 02/14/25 09:46 GFR Calculation Not Reportable 02/14/25 09:46 Glucose 145 mg/dL (65-115) H 02/14/25 09:46 Estimat Average Glucose 146 02/14/25 09:46 Hemoglobin A1c 6.7 % (4.0-6.0) H 02/14/25 09:46 Calculated Osmolality 295 mOsm/kg (285-295) 02/14/25 09:46 Calcium 9.2 mg/dL (8.5-10.5) 02/14/25 09:46 Total Bilirubin 1.8 mg/dL (0.15-1.2) H 02/14/25 09:46 AST 25 U/L (0-40) 02/14/25 09:46 ALT 19 U/L (0-41) 02/14/25 09:46 Alkaline Phosphatase 137 U/L (40-130) H 02/14/25 09:46 C-Reactive Protein 42.2 mg/L (0.0-4.9) H 02/14/25 09:46 Total Protein 8.2 g/dL (6.6-8.7) 02/14/25 09:46 Albumin 3.9 g/dL (3.5-5.2) 02/14/25 09:46 Globulin 4.3 g/dL (1.3-4.6) 02/14/25 09:46 Discharge Plan Discharge Patient Disposition: Admitted As Inpatient Admit Provider: Freddy Yeung Clinical Impression: Abscess of right foot, Diabetic infection of right foot, Cellulitis and abscess of foot, Thrombocytopenia Condition: Stable Coding Level of Care Code ED Armored Machine Operator for Leeroy Vidales
[2025-02-14 09:58] LABS: Hematocrit 37.6 % (37-53); Hemoglobin 12.30 g/dL (11.27-16.99); Mean Corpuscular HGB Conc 32.7 g/dL (30-55); Mean Corpuscular Hemoglobin 31.5 pg (27-33); Mean Corpuscular Volume 96.4 fl (82-101); Nucleated Red Blood Cells % 0 %; Platelet Count 77 10^3/cmm (157-399); Red Blood Count 3.90 10^6/uL (3.85-5.65); White Blood Count 8.35 10^3/uL (3.29-11.43)
[2025-02-14 10:21] LABS: Alanine Aminotransferase 19 U/L (0-41); Albumin Level 3.9 g/dL (3.5-5.2); Alkaline Phosphatase 137 U/L (40-130); Anion Gap 15.3 (5-19); Aspartate Amino Transferase 25 U/L (0-40); Blood Urea Nitrogen 37 mg/dL (8-23); Calcium 9.2 mg/dL (8.5-10.5); Carbon Dioxide 26 mmol/L (22-29); Chloride 100 mmol/L (98-107); Creatinine Clr Calc Pharmacy 53.8213; Globulin 4.3 g/dL (1.3-4.6); Glucose 145 mg/dL (65-115); Osmolality Calculated 295 mOsm/kg (285-295); Potassium 4.3 mmol/L (3.5-5.1); Sodium 137 mmol/L (136-145); Total Protein 8.2 g/dL (6.6-8.7)
[2025-02-14] MEDS: meropenem 1,000 mg SDV 1000 MG IVP ×2 (10:29→18:13)
--- NOTE | 2025-02-14 16:52 | PM.HP ---
Providers/Chief Complaint Admitting Physician: Freddy Yeung Primary Care Provider: [facility] Chief Complaint: R foot pain and spot on it History of Present Illness Axel Wilcox is a 74 year old patient with a history of diabetes mellitus, chronic lymphedema, prior foot ulcer, hypertension, atrial fibrillation (Watchman device), coronary stents, chronic thrombocytopenia, CKD, and lumbar spinal stenosis awaiting fusion surgery. Over the past several days they noted redness, swelling, and pain on the right plantar foot; a mirror inspection revealed blistering that progressed to a plantar abscess with surrounding cellulitis spreading to the ankle/lower leg. Podiatry performed bedside debridement in the ED and started IV meropenem and vancomycin; MRI of the foot was recommended to rule out osteomyelitis. Review of Systems Const: Denies: fever(s), chills, body aches or malaise ENMT: Denies: throat pain Card: Denies: chest pain, edema, pre-syncope or dyspnea on exertion Resp: Denies: dyspnea, productive cough, change in phlegm color or hemoptysis GI: Denies: abdominal pain, nausea, vomiting, diarrhea, constipation, hematochezia or melena : Denies: flank pain, difficulty urinating, urinary frequency or hematuria Musc: Reports: other (BL chronic non-pitting edema of thighs down to feet); Denies: back pain, joint swelling or joint redness Skin/Breast: Reports: erythema (RLE below knee) and new lesions (R foot) Neuro: Denies: headache(s) or confusion Medications/Allergies Home Medications ?Medication ?Instructions ?Recorded ?Confirmed ?Last Taken ?Type diabteic shoes w/ 3 inserts #1 ea 02/19/24 02/14/25 Unknown Rx aspirin 81 mg tablet,delayed 81 mg PO DAILY 02/26/24 02/14/25 02/13/25 History release atorvastatin 40 mg tablet 40 mg PO DAILY 02/26/24 02/14/25 02/13/25 History bumetanide 2 mg tablet 2 mg PO BID 02/26/24 02/14/25 02/13/25 History dapagliflozin propanediol 10 mg 10 mg PO DAILY 02/26/24 02/14/25 02/13/25 History tablet (Farxiga) escitalopram oxalate 10 mg tablet 10 mg PO DAILY 02/26/24 02/14/25 02/13/25 History lisinopril 5 mg tablet 5 mg PO DAILY 02/26/24 02/14/25 02/13/25 History metoprolol succinate 25 mg 25 mg PO DAILY 02/26/24 02/14/25 02/13/25 History tablet,extended release 24 hr potassium chloride 20 mEq/15 mL 20 meq PO BID 02/26/24 02/14/25 02/13/25 History oral liquid glimepiride 2 mg tablet 2 mg PO DAILY 09/07/24 02/14/25 02/13/25 History tamsulosin 0.4 mg capsule (Flomax) 0.4 mg PO QPM 09/07/24 02/14/25 02/13/25 18:00 History Custom Molded Orthotics #1 ea 10/01/24 02/14/25 Unknown Rx diabetic shoes with 3 custom #1 ea 11/11/24 02/14/25 Unknown Rx inserts dulaglutide 0.75 mg/0.5 mL 0.75 mg SUBCUT Q7D 01/24/25 02/14/25 02/05/25 History subcutaneous pen injector (Trulicity) allopurinol 300 mg tablet 150 mg PO BID 02/14/25 02/14/25 02/13/25 History Allergies Allergy/AdvReac Type Severity Reaction Status Date / Time Penicillins Allergy Unknown Verified 11/11/24 13:32 PFSH Acute PFSH: Medical History Paroxysmal A-fib Presence of Watchman left atrial appendage closure device CAD (coronary artery disease) Thrombocytopenia Dystrophia unguium Peripheral neuropathy Ulcer of right foot with fat layer exposed Diabetic infection of right foot Type 2 diabetes mellitus Social History Smoking and tobacco/nicotine status: former use of tobacco/nicotine Vitals/I&O/Wt Last Vital Signs Temp 98.6 F 02/14/25 14:17 Pulse 79 02/14/25 14:17 Resp 19 H 02/14/25 14:17 BP 139/63 02/14/25 14:17 Pulse Ox 93 02/14/25 14:17 O2 Del Method Room Air 02/14/25 13:04 Weight last 48 hrs Weight 136.168 kg Weight 131.542 kg Physical Exam Const: COMMON NORMALS: patient oriented x3 and alert GENERAL APPEARANCE: cooperative ORIENTATION/CONSCIOUSNESS: Yes awake HENMT: COMMON NORMALS: oropharynx normal Neck/C-Spine: COMMON NORMALS: no JVD Resp: COMMON NORMALS: normal respiratory effort and clear to auscultation bilaterally AUSCULTATION: clear to auscultation bilaterally Cardio: COMMON NORMALS: no JVD, regular rhythm, S1 normal heart sound present, S2 normal heart sound present and No murmurs present (Cardio) RHYTHM: regular rhythm HEART SOUNDS: S1 normal heart sound present and S2 normal heart sound present GI: COMMON NORMALS: Normal to inspection, nondistended, normoactive bowel sounds present, Soft to palpation and non-tender PALPATION: Yes Soft to palpation Extremity: COMMON NORMALS: no joint enlargement and no pedal edema Neuro: COMMON NORMALS: patient oriented x3 and moves all extremities SENSORIUM/ORIENTATION: Yes alert Skin: COMMON NORMALS: no rashes or lesions noted NARRATIVE SKIN EXAM: Redness, induration of RLE GENERAL SKIN EXAM: no rashes or lesions noted Data 02/14/25 09:46 02/14/25 09:46 Micro: Microbiology 02/14/25 10:14 Blood Culture - Preliminary Blood SPECIMEN COLLECTED 02/14/25 09:46 Blood Culture - Preliminary Blood SPECIMEN COLLECTED A&P Assessment and plan (1) Abscess of right foot: Right plantar foot abscess with cellulitis : Plantar abscess on proximal plantar foot with cellulitis spreading to lower leg; bedside debridement performed; superimposed on chronic lymphedema; CRP 42.2, ESR 11; x-ray negative for osteomyelitis. Reviewed vitals, CBC, ESR, CMP, CRP, foot x-ray, ER provider note, discussed with ER provider. - Continue IV meropenem and vancomycin as started in ED. monitor risk of seizure, risk of SCOTTIE. - Obtain MRI of right foot to assess for bone involvement. - Monitor wound; podiatry to determine need for further OR debridement. - Elevate limb and monitor for progression of cellulitis. - Send/monitor wound and blood cultures; adjust antibiotics per sensitivities. (2) Cellulitis and abscess of foot: As above. Plan DM2: On Trulicity and glimepiride. Check A1c. CAD: Status post coronary stent. Continue aspirin, statin, beta-marcela. Chronic lymphedema: Continue bumetanide Gout: Continue allopurinol HTN: Continue lisinopril, metoprolol BPH: Continue Flomax CKD: Reviewed BUN, creatinine, reassess chemistry. PDMP PDMP Reviewed: Not Reviewed Attestations Medical Necessity Statement*: Admission over 2 midnights anticipated for assessment management of abscess and cellulitis of right lower extremity and interment with diabetes, CAD, additional, bradycardia's as above. and High MDM includes amount and/or complexity of data reviewed/ordered [ previous or external records, resulted lab(s)/test(s) and other healthcare professional discussion] and described risk of complication, morbidity or mortality of management as documented Diagnoses Abscess of right foot L02.611 Cellulitis and abscess of foot L03.119; L02.619
--- NOTE | 2025-02-14 17:42 | PHA.VACGOAL ---
Vancomycin Goal - Goal Vancomycin Goal:: 10-15 mg/L - Therapy Current therapy:: Meropenem Day of therpy:: Day []of [] . Actual body weight (kg): 300 lb 3.2 oz - Data Labs: WBC 8.35 10^3/uL (3.29-11.43) 02/14/25 09:46 RBC 3.90 10^6/uL (3.85-5.65) 02/14/25 09:46 Hgb 12.30 g/dL (11.27-16.99) 02/14/25 09:46 Hct 37.6 % (37-53) 02/14/25 09:46 MCV 96.4 fl (82-101) 02/14/25 09:46 MCH 31.5 pg (27-33) 02/14/25 09:46 MCHC 32.7 g/dL (30-55) 02/14/25 09:46 RDW 15.5 % (12.1-15.1) H 02/14/25 09:46 Sodium 137 mmol/L (136-145) 02/14/25 09:46 Potassium 4.3 mmol/L (3.5-5.1) 02/14/25 09:46 Chloride 100 mmol/L (98-107) 02/14/25 09:46 Carbon Dioxide 26 mmol/L (22-29) 02/14/25 09:46 Anion Gap 15.3 (5-19) 02/14/25 09:46 BUN 37 mg/dL (8-23) H 02/14/25 09:46 Creatinine 1.5 mg/dL (0.7-1.2) H 02/14/25 09:46 GFR Calculation Not Reportable 02/14/25 09:46 Treatment plan:: new consult Regimen:: 2000 MG LOADING DOSE BMI OF 53 SO DOSING SLIGHTLY LOWER THAN PROTOCOL @ 1000 MG Q12H. TROUGH BEFORE 3RD MAINT DOSE 02/16 @ 0400
--- NOTE | 2025-02-14 18:37 | P.CONIM_ITS ---
Providers/Reason For Consult 2 Consulting Physician/Specialty*: Chacorta SantosPAlena/podiatry Reason for Consult*: Right foot abscess Attending Physician: Freddy Yeung Primary Care Provider: [facility] History of Present Illness History of Present Illness 74-year-old male, established patient with podiatry, presented to the emergency department today with a worsening right foot infection. The patient noted a wound on Friday of last week during self-foot inspection. However, due to the unexpected passing of his daughter, he was unable to seek earlier medical attention. The wound progressively worsened over the following days. He presented to the ED today for further workup and evaluation. Podiatry was consulted for assessment and management. Review of Systems 2 General: Reports: 10 or more systems reviewed and unremarkable except in HPI and below Const: Denies: fever(s), chills, body aches or change in appetite Eyes: Denies: change in vision or blurry vision Card: Denies: chest pain, palpitations or irregular heart rhythm Resp: Denies: dyspnea GI: Denies: abdominal pain, nausea, vomiting or diarrhea Musc: Reports: joint stiffness Skin/Breast: Reports: non-healing lesions and lesions Neuro: Reports: numbness in extremities Medications/Allergies Home Medications ?Medication ?Instructions ?Recorded ?Confirmed ?Last Taken ?Type diabteic shoes w/ 3 inserts #1 ea 02/19/24 02/14/25 U nknown Rx aspirin 81 mg tablet,delayed 81 mg PO DAILY 02/26/24 0 02/14/25 02/13/25 History release atorvastatin 40 mg tablet 40 mg PO DAILY 02/26/24/03/0402/13/25 History bumetanide 2 mg tablet 2 mg PO BID 02/26/24 5 02/13/25 History dapagliflozin propanediol 10 mg 10 mg PO DAILY 4 02/14/25 02/13/25 History tablet (Farxiga) escitalopram oxalate 10 mg tablet 10 mg PO DAILY 02/2502/14/25 02/13/25 History lisinopril 5 mg tablet 5 mg PO DAILY 02/26/2402/1402/13/25 History metoprolol succinate 25 mg 25 mg PO DAILY 02/26/2403/0402/13/25 History tablet,extended release 24 hr potassium chloride 20 mEq/15 mL 20 meq PO BID 02/26/24 02/14/25 02/13/25 History oral liquid glimepiride 2 mg tablet 2 mg PO DAILY 09/07/2402/1402/13/25 History tamsulosin 0.4 mg capsule (Flomax) 0.4 mg PO QPM 09/0702/14/25 02/13/25 18:00 History Custom Molded Orthotics #1 ea 10/01/24 02/14/25 Unkn own Rx diabetic shoes with 3 custom #1 ea 11/11/24 02/14/25 U nknown Rx inserts dulaglutide 0.75 mg/0.5 mL 0.75 mg SUBCUT Q7D 01/24/25 02/14/25 02/05/25 [facility] allopurinol 300 mg tablet 150 mg PO BID 02/14/2502/1402/13/25 History Allergies Allergy/AdvReac Type Severity Reaction Status Date / Time Penicillins Allergy Unknown Verified 11/11/24 13:32 Current Medications Generic Name Dose Route Start Last Admin Trade Name Freq PRN Reason Stop Dose Admin Allopurinol 150 mg 02/14/25 18:00 02/14/25 17:47 Allopurinol 300 Mg Tablet PO 150 mg BID DAVE Administration Bumetanide 2 mg 02/14/25 18:00 02/14/25 17:47 Bumetanide 1 Mg Tablet PO 2 mg BID DAVE Administration Enoxaparin Sodium 40 mg 02/14/25 17:15 02/14/25 17:48 Enoxaparin 40 Mg/0.4 Ml Syringe SUBCUT 40 mg Q24H DAVE Administration Vancomycin HCl 2,000 mg in 400 mls @ 200 mls/hr 02/14/25 17:45 02/14/25 18:12 Vancocin IV 02/14/25 19:44 200 mls/hr ONCE ONE Administration Meropenem 1,000 mg 02/14/25 18:30 02/14/25 18:13 Meropenem 1,000 Mg Sdv IVP 1,000 mg Q8H DAVE Administration Protocol Tamsulosin HCl 0.4 mg 02/14/25 18:00 02/14/25 17:48 Tamsulosin 0.4 Mg Capsule PO 0.4 mg QPM DAVE Administration PFSH Acute 2 PFSH: Medical History Paroxysmal A-fib Presence of Watchman left atrial appendage closure device CAD (coronary artery disease) Thrombocytopenia Dystrophia unguium Peripheral neuropathy Ulcer of right foot with fat layer exposed Diabetic infection of right foot Type 2 diabetes mellitus Social History Smoking and tobacco/nicotine status: former use of tobacco/nicotine Vitals/I&O/Wt Last Vital Signs Temp 98.8 F 02/14/25 17:51 Pulse 74 02/14/25 17:51 Resp 18 02/14/25 17:51 BP 111/63 02/14/25 17:51 Pulse Ox 92 02/14/25 17:51 O2 Del Method Room Air 02/14/25 13:04 02/14/25 02/14/25 02/14/25 06:59 14:59 22:59 Intake Total 490 / 490 Output Total 600 / 600 Balance -110 / -110 Weight last 48 hrs Weight 300 lb 3.2 oz Weight 290 lb Physical Exam 2 Narrative: FOCUSED LOWER EXTREMITY EXAM VASCULAR: DP/PT pulses palpable 2/4 with CFT intact, <3 seconds to distal digits DERMATOLOGICAL: Fluctuant abscess in the first interdigital space of the right foot with surrounding erythema extending to the level of the leg. No subcutaneous crepitus. Betadine-soaked gauze packing present within the wound. No necrosis visualized. No drainage noted at time of exam. Skin temperature and turgor are within normal limits elsewhere. MUSCULOSKELETAL: Localized tenderness to deep palpation of the first intermetatarsal space. No gross deformities. Ankle and hindfoot range of motion preserved. No signs of joint instability. NEUROLOGICAL: Sensation intact to L4-S1 dermatomes. No hyperesthesia or focal deficits noted. IMAGIN-view x-rays of the right foot were taken at today?s visit and independently interpreted by me. These show no subcutaneous emphysema and no readily visualized osteomyelitis. Data 02/14/25 09:46 02/14/25 09:46 Micro: Microbiology 02/14/25 10:14 Blood Culture - Preliminary Blood SPECIMEN COLLECTED 02/14/25 09:46 Blood Culture - Preliminary Blood SPECIMEN COLLECTED A&P Assessment and plan (1) Cellulitis and abscess of foot: (2) Abscess of right foot: (3) Type 2 diabetes mellitus: Plan Continue inpatient admission for IV antibiotics and wound surveillance. Labs and vitals reviewed WBC 8.35 ESR 11 CRP 42.2 HR 72 RR 19 Tmax 98.8 Cultures: aerobic and anaerobic cultures obtained from right foot abscess Antibiotics: vancomycin and meropenem initiated in ED Diet: Regular unless otherwise indicated Pain Management: Acetaminophen PRN, evaluate further as needed Weight bearing: Protected weight bearing on right lower extremity Dressings: Continue Betadine-soaked gauze packing with dry sterile dressing and Tito wrap; Continue current antibiotic therapy until ID and Sensitivity results Trend labs Discharge plan to be determined based on imaging, wound progression, and culture results Podiatry will continue to round on patient daily and provide recommendations The patient underwent bedside incision and drainage of a fluctuant abscess in the first interdigital space of the right foot by podiatry. Cultures (aerobic and anaerobic) were obtained at the time of the procedure. He tolerated the procedure well without complication. The wound was packed with Betadine-soaked gauze and covered with dry sterile gauze and an Tito wrap. MRI of the right foot is being ordered to evaluate for deep space abscess. PDMP PDMP Reviewed: Not Reviewed Coding Level of Care Code Acute Code for [facility] Diagnoses Cellulitis and abscess of foot L03.119; L02.619 Abscess of right foot L02.611 Type 2 diabetes mellitus E11.9
[2025-02-14 23:08] LABS: Estmated Average Glucose 146; Hemoglobin A1C 6.7 % (4.0-6.0)
[2025-02-15] VITALS: BP 109/67; PULSE 56; RESP 16; TEMP 36.9; O2SAT 94
[2025-02-15] MEDS: meropenem 1,000 mg SDV 1000 MG IVP ×3 (03:42→17:38)
[2025-02-15 04:00] VITALS: BP 97/52; PULSE 71; RESP 17; TEMP 36.8; O2SAT 95
[2025-02-15 04:58] LABS: Hematocrit 35.0 % (37-53); Hemoglobin 11.20 g/dL (11.27-16.99); Mean Corpuscular HGB Conc 32.0 g/dL (30-55); Mean Corpuscular Hemoglobin 30.9 pg (27-33); Mean Corpuscular Volume 96.7 fl (82-101); Nucleated Red Blood Cells % 0 %; Platelet Count 68 10^3/cmm (157-399); Red Blood Count 3.62 10^6/uL (3.85-5.65); White Blood Count 7.22 10^3/uL (3.29-11.43)
[2025-02-15 05:20] LABS: Anion Gap 15.9 (5-19); Blood Urea Nitrogen 35 mg/dL (8-23); Calcium 8.5 mg/dL (8.5-10.5); Carbon Dioxide 24 mmol/L (22-29); Chloride 102 mmol/L (98-107); Creatinine Clr Calc Pharmacy 54.9693; Glucose 116 mg/dL (65-115); Osmolality Calculated 295 mOsm/kg (285-295); Potassium 3.9 mmol/L (3.5-5.1); Sodium 138 mmol/L (136-145)
[2025-02-15] MEDS: VANCOMYCIN ADD-Vantage 1,000 MG in 0.9% NaCl ADD-Vantage 250 ML 250 MG IV ×2 (05:33→17:38)
[2025-02-15 07:37] VITALS: BP 106/67; PULSE 59; RESP 17; TEMP 36.4; O2SAT 92
[2025-02-15] MEDS: metoprolol succinate ER (24 HR) 25 mg Tablet PO (08:33)
--- NOTE | 2025-02-15 10:22 | PC.CHAP ---
Pastoral Care Encounter/Spiritual Assessment Type of Contact [] Declined procedures analyst visit [] Patient/Family/Request visit [] Outpatient visit [] Follow-up visit [] Physician referral [] Code/Alert [x] Routine visit [] Staff referral [] Actively dying [] Patient sleeping [] Family support [] [] Out of room [] Palliative care [] [] Receiving care in room [] Pre-surgical visit [] Trauma [] Long length of stay [] ICU visit [] Other: Relational/Emotional Strength [x] Patient feels connected with others/family/visitors/staff [] Distress [] Loneliness/isolation [] Abandonment Spirituality of Patient [x] Person of Janette [] Attends Caodaism of their Janette [x] Believes in Prayer [] Reads Bible or Congregational materials [] There are Spiritual issues to be addressed Drivability Technician Interventions [x] Prayer [x] Active listening [] Non-anxious presence [x] Spiritual/emotional support [] Crisis/trauma care [] Spiritual counseling [] Bereavement support [] Provided bereavement packet [] Provided Bible/devotional materials [] Provided toy/stuffed animal, coloring book to patient or family member [] Provided Communion [] Anointing/[place] [] Salvation [x] Completed spiritual assessment [] Other: Impact on Illness or Injury [] Angry [] Fearful [] Anxious [] Often cries [] Exhaustion [] Unable to work [] Unable to attend roman catholic [] Unable to walk/stand [] Unable to read [] Unable to drive [] Unable to eat/drink [] Unable to sleep [] Unable to be with family [] Patient intubated [] Other: Summary Time spent with patient 10 min
[2025-02-15 11:30] VITALS: BP 137/63; PULSE 61; RESP 17; TEMP 36.3; O2SAT 93
[2025-02-15] MEDS: gadobenate dimeglumine 20 mL vial IV (13:34)
--- NOTE | 2025-02-15 15:30 | MR_ITS ---
WS: [id number] EXAMINATION: MR foot RT wo/w con [id number] ORDER DATE: 02/15/2025 1:01 PM HISTORY: assess for OM TECHNIQUE: Sagittal T1, sagittal STIR, coronal PD, coronal T2, axial T1, axial T2, and axial PD imaging with fat saturation technique. Post gadolinium imaging includes axial T1, coronal T1, and sagittal T1 with fat saturation technique. FINDINGS: Some images are limited due to patient motion and involuntary spasms. Normal bone marrow signal in the metatarsals. Normal bone marrow signal in the navicular. Evidence of plantar cellulitis with skin thickening and diffuse edema. Normal bone marrow signal in the talus and calcaneus. Normal cuboid and cuneiforms. Area of plantar ulceration underlying the head of the first metatarsal. Associated skin thickening. No drainable abscess or fluid collection. Preservation of the normal bone marrow signal in the sesamoid bones and head of the first metatarsal. No abnormal bony enhancement. Osteopenia. Hammertoe deformities. Moderate to advanced degenerative narrowing involving the IP joints. Plantar calcaneal spurring. Prominent Achilles insertion enthesophyte. MR/MR foot RT wo/w con [id number] IMPRESSION: No evidence of acute osteomyelitis. No drainable abscess or fluid collection.
[2025-02-15 15:31] VITALS: BP 110/65; PULSE 49; RESP 21; O2SAT 93
--- NOTE | 2025-02-15 16:50 | P.PN_ITS ---
Subjective 2 Subjective: Patient seen at bedside. No overnight events. MRI obtained. Vitals/I&O/Wt Last Vital Signs Temp 97.4 F L 02/15/25 11:30 Pulse 49 L 02/15/25 15:31 Resp 21 H 02/15/25 15:31 BP 110/65 02/15/25 15:31 Pulse Ox 93 02/15/25 15:31 O2 Del Method Room Air 02/15/25 15:31 02/15/25 02/15/25 02/15/25 06:59 14:59 22:59 Intake Total 850 / 850 Balance 850 / 850 Weight last 48 hrs Weight 301 lb Weight 300 lb 3.2 oz Weight 290 lb Physical Exam 2 Narrative: FOCUSED LOWER EXTREMITY EXAM VASCULAR: DP/PT pulses palpable 2/4 with CFT intact, <3 seconds to distal digits DERMATOLOGICAL: Partial-thickness ulceration right foot first interdigital space. No further abscess appreciated. Status post I&D MUSCULOSKELETAL: Localized tenderness to deep palpation of the first intermetatarsal space. No gross deformities. Ankle and hindfoot range of motion preserved. No signs of joint instability. NEUROLOGICAL: Sensation intact to L4-S1 dermatomes. No hyperesthesia or focal deficits noted. IMAGIN-view x-rays of the right foot were taken at today?s visit and independently interpreted by me. These show no subcutaneous emphysema and no readily visualized osteomyelitis. MRI right foot obtained, interpreted by me. No evidence of underlying abscess or osteomyelitis Data 02/15/25 04:50 02/15/25 04:50 Micro: Microbiology 02/14/25 10:14 Blood Culture - Preliminary Blood NEGATIVE TO DATE 02/14/25 09:46 Blood Culture - Preliminary Blood NEGATIVE TO DATE A&P Assessment and plan 1. Cellulitis and abscess of foot: 2. Abscess of right foot: 3. Type 2 diabetes mellitus: Plan: Continue inpatient admission for IV antibiotics and wound surveillance. Labs and vitals reviewed VSS Cultures: aerobic and anaerobic cultures obtained from right foot abscess. These cultures taken in the emergency department after abscess I&D are missing Antibiotics: vancomycin and meropenem initiated in ED Diet: Regular unless otherwise indicated -No plan for surgical intervention from podiatry during this admission Pain Management: Acetaminophen PRN, evaluate further as needed Weight bearing: Protected weight bearing on right lower extremity Dressings: Continue Betadine-soaked gauze packing with dry sterile dressing and Tito wrap; Continue current antibiotic therapy until ID and Sensitivity results Trend labs Discharge plan: Okay to discharge home from podiatry standpoint with broad- spectrum oral antibiotics. Patient is to perform daily dressing changes consisting of Betadine wet-to-dry. Patient can weight-bear as tolerated to right foot. Follow-up with podiatry within 1 week of discharge Podiatry will continue to round on patient daily and provide recommendations PDMP PDMP Reviewed: Not Reviewed Attestations 2 Medical Necessity Statement*: See hospitalist note Coding Level of Care Code Acute Code for [facility] Diagnoses Cellulitis and abscess of foot L03.119; L02.619 Abscess of right foot L02.611 Type 2 diabetes mellitus E11.9
[2025-02-15 20:00] VITALS: BP 124/72; PULSE 59; RESP 17; TEMP 36.4; O2SAT 92
--- NOTE | 2025-02-15 20:06 | P.PN_ITS ---
Subjective 2 Subjective: Right lower leg erythema is showing improvement. No new symptoms. Vitals/I&O/Wt Last Vital Signs Temp 97.4 F L 02/15/25 11:30 Pulse 49 L 02/15/25 15:31 Resp 21 H 02/15/25 15:31 BP 110/65 02/15/25 15:31 Pulse Ox 93 02/15/25 15:31 O2 Del Method Room Air 02/15/25 15:31 02/15/25 02/15/25 02/15/25 06:59 14:59 22:59 Intake Total 850 / 850 490 / 1340 Output Total 450 / 450 Balance 850 / 850 40 / 890 Weight last 48 hrs Weight 136.531 kg Weight 136.168 kg Weight 131.542 kg Physical Exam 2 Const: COMMON NORMALS: patient oriented x3 and alert GENERAL APPEARANCE: c ooperative ORIENTATION/CONSCIOUSNESS: Yes awake HENMT: COMMON NORMALS: oropharynx normal Neck/C-Spine: COMMON NORMALS: no JVD Resp: COMMON NORMALS: normal respiratory effort and clear to auscultation bilaterally AUSCULTATION: clear to auscultation bilaterally Cardio: COMMON NORMALS: no JVD, regular rhythm, S1 normal heart sound present, S2 normal heart sound present and No murmurs present (Cardio) RHYTHM: regular rhythm HEART SOUNDS: S1 normal heart sound present and S2 normal heart sound present GI: COMMON NORMALS: Normal to inspection, nondistended, normoactive bowel sounds present, Soft to palpation and non-tender PALPATION: Yes Soft to palpation Extremity: COMMON NORMALS: no joint enlargement and no pedal edema Neuro: COMMON NORMALS: patient oriented x3 and moves all extremities S ENSORIUM/ORIENTATION: Yes alert Skin: COMMON NORMALS: no rashes or lesions noted NARRATIVE SKIN EXAM: Redness morphine today, with induration of RLE. Dressed wound of the right sole. GENERAL SKIN EXAM: no rashes or lesions noted Data 02/15/25 04:50 02/15/25 04:50 Micro: Microbiology 02/14/25 10:14 Blood Culture - Preliminary Blood NEGATIVE TO DATE 02/14/25 09:46 Blood Culture - Preliminary Blood NEGATIVE TO DATE A&P Assessment and plan 1. Abscess of right foot: Status post bedside debridement yesterday. On empiric antibiotics. Improving cellulitis surrounding the diabetic wound and former abscess. Reviewed vitals, CBC, BMP, cultures. He seems cultures have been lost. Today underwent MRI, reviewed study, as per discussion with podiatry without evidence of deep abscess, no osteomyelitis. Continue IV antibiotics today, no further surgical intervention with anticipated at and at this point to be able to discharge home tomorrow with p.o. broad spectrum antibiotic with follow-up with podiatry in office in 1 week. Continue dressings with Betadine wet-to-dry. Weightbearing as tolerated. At current time continue meropenem, vancomycin. Monitor for risk of seizure, SCOTTIE. C. difficile. 2. Cellulitis and abscess of foot: As above. Plan: DM2: On Trulicity and glimepiride. Reviewed A1c. CAD: Status post coronary stent. Continue aspirin, statin, beta-marcela. Chronic lymphedema: Continue bumetanide Gout: Continue allopurinol HTN: Continue lisinopril, metoprolol. Noted heart rates in high 40s, rare, asymptomatic. Continue metoprolol at current time. Monitor. BPH: Continue Flomax CKD: Reviewed BUN, creatinine, reassess chemistry. PDMP PDMP Reviewed: Not Reviewed Attestations 2 Medical Necessity Statement*: Continue admission for assessment management of right foot purulent cellulitis and abscess in a gentleman with CKD, CAD, additional comorbidities. and High MDM includes amount and/or complexity of data reviewed/ordered [ resulted lab(s)/test(s), ordered lab(s)/test(s) and other healthcare professional discussion] and described risk of complication, morbidity or mortality of management as documented Diagnoses Abscess of right foot L02.611 Cellulitis and abscess of foot L03.119; L02.619
[2025-02-16] VITALS: BP 108/68; PULSE 58; RESP 17; TEMP 36.4; O2SAT 93
[2025-02-16] MEDS: meropenem 1,000 mg SDV 1000 MG IVP ×2 (02:01→10:52)
[2025-02-16 03:59] LABS: Hematocrit 34.0 % (37-53); Hemoglobin 11.30 g/dL (11.27-16.99); Mean Corpuscular HGB Conc 33.2 g/dL (30-55); Mean Corpuscular Hemoglobin 32.0 pg (27-33); Mean Corpuscular Volume 96.3 fl (82-101); Nucleated Red Blood Cells % 0 %; Platelet Count 69 10^3/cmm (157-399); Red Blood Count 3.53 10^6/uL (3.85-5.65); White Blood Count 6.25 10^3/uL (3.29-11.43)
[2025-02-16 04:00] VITALS: BP 105/64; PULSE 78; RESP 17; TEMP 36.4; O2SAT 95
[2025-02-16 04:17] LABS: Blood Urea Nitrogen 37 mg/dL (8-23); Calcium 8.3 mg/dL (8.5-10.5); Carbon Dioxide 24 mmol/L (22-29); Chloride 102 mmol/L (98-107); Creatinine Clr Calc Pharmacy 58.9922; Glucose 104 mg/dL (65-115); Osmolality Calculated 297 mOsm/kg (285-295); Sodium 139 mmol/L (136-145)
[2025-02-16 04:26] LABS: Anion Gap 17.0 (5-19); Potassium 4.0 mmol/L (3.5-5.1)
[2025-02-16 07:14] VITALS: BP 133/78; PULSE 62; RESP 17; O2SAT 97
[2025-02-16] MEDS: metoprolol succinate ER (24 HR) 25 mg Tablet PO (08:42)
--- NOTE | 2025-02-16 10:39 | PM.DCS ---
Discharge Providers Date of Admission: 02/14/25 11:42 Date of Discharge: February 16, 2025 Attending Provider at Admission: Freddy Yeung Attending Provider at Discharge: Ean Grayson MD Primary Care Provider: [facility] Diagnoses at Discharge Discharge Diagnosis 1. Abscess of right foot: 2. Cellulitis and abscess of foot: Reason for Visit Reason for Visit: R foot pain and spot on it Brief History: History as per HPI: Axel Wilcox is a 74 year old patient with a history of diabetes mellitus, chronic lymphedema, prior foot ulcer, hypertension, atrial fibrillation (Watchman device), coronary stents, chronic thrombocytopenia, CKD, and lumbar spinal stenosis awaiting fusion surgery. Over the past several days they noted redness, swelling, and pain on the right plantar foot; a mirror inspection revealed blistering that progressed to a plantar abscess with surrounding cellulitis spreading to the ankle/lower leg. Podiatry performed bedside debridement in the ED and started IV meropenem and vancomycin; MRI of the foot was recommended to rule out osteomyelitis. Hospital Course Hospital Course Patient was admitted to the hospital further evaluation and management of abscess of right foot with concerns for osteomyelitis. Podiatry was consulted. MRI was done which ruled out underlying abscess or osteomyelitis. He was continued on broad-spectrum IV antibiotics. He did undergo bedside wound debridement. During hospitalization his blood cultures remain negative though wound cultures were possibly lost and were never run. He has been discharged back home in hemodynamically stable condition on oral Levaquin and linezolid for 10 days as patient is MRSA swab positive with advised to follow-up with podiatry team as an outpatient within next 1 week. He is to continue his wound care as discussed with podiatry team at home. Home health is being arranged. Physical Exam Const: COMMON NORMALS: patient oriented x3 and alert GENERAL APPEARANCE: cooperative ORIENTATION/CONSCIOUSNESS: Yes awake HENMT: COMMON NORMALS: oropharynx normal Neck/C-Spine: COMMON NORMALS: no JVD Resp: COMMON NORMALS: normal respiratory effort and clear to auscultation bilaterally AUSCULTATION: clear to auscultation bilaterally Cardio: COMMON NORMALS: no JVD, regular rhythm, S1 normal heart sound present, S2 normal heart sound present and No murmurs present (Cardio) RHYTHM: regular rhythm HEART SOUNDS: S1 normal heart sound present and S2 normal heart sound present GI: COMMON NORMALS: Normal to inspection, nondistended, normoactive bowel sounds present, Soft to palpation and non-tender PALPATION: Yes Soft to palpation Extremity: COMMON NORMALS: no joint enlargement and no pedal edema Neuro: COMMON NORMALS: patient oriented x3 and moves all extremities SENSORIUM/ORIENTATION: Yes alert Skin: COMMON NORMALS: no rashes or lesions noted NARRATIVE SKIN EXAM: Redness morphine today, with induration of RLE. Dressed wound of the right sole. GENERAL SKIN EXAM: no rashes or lesions noted Discharge Data Studies Completed and Pending Completed Studies During Hospitalization Category Date Time Status XR foot RT min 3V* [id number] Stat Exams 02/14/25 09:29 Completed MR foot RT wo/w con [id number] Routine MRI 02/15/25 15:30 Completed Pending at discharge Category Date Time Status Basic Metabolic Panel AM LABS Lab 02/17/25 04:00 Ordered Blood Culture Stat Lab 02/14/25 10:14 Results Complete Blood Count w/Auto AM LABS Lab 02/17/25 04:00 Ordered Radiology Impressions Foot X-Ray 02/14/25 09:29 IMPRESSION: 1. No acute fracture or bone destruction. 2. Other nonacute findings as above. Microbiology 02/14/25 10:14 Blood Blood Culture - Preliminary NEGATIVE TO DATE 02/14/25 09:46 Blood Blood Culture - Preliminary NEGATIVE TO DATE Foot MRI 02/15/25 15:30 IMPRESSION: No evidence of acute osteomyelitis. No drainable abscess or fluid collection. Laboratory Results WBC 6.25 10^3/uL (3.29-11.43) 02/16/25 03:41 RBC 3.53 10^6/uL (3.85-5.65) L 02/16/25 03:41 Hgb 11.30 g/dL (11.27-16.99) 02/16/25 03:41 Hct 34.0 % (37-53) L 02/16/25 03:41 MCV 96.3 fl (82-101) 02/16/25 03:41 MCH 32.0 pg (27-33) 02/16/25 03:41 MCHC 33.2 g/dL (30-55) 02/16/25 03:41 RDW 15.3 % (12.1-15.1) H 02/16/25 03:41 Plt Count 69 10^3/cmm (157-399) L 02/16/25 03:41 MPV 12.4 fL (7.4-10.4) H 02/16/25 03:41 Neut % (Auto) 73.6 % 02/16/25 03:41 Lymph % (Auto) 9.9 % 02/16/25 03:41 Benson % (Auto) 12.0 % 02/16/25 03:41 Eos % (Auto) 3.4 % 02/16/25 03:41 Baso % (Auto) 0.5 % 02/16/25 03:41 Neut # (Auto) 4.60 10^3/uL (1.8-7.7) 02/16/25 03:41 Lymph # (Auto) 0.6 10^3/uL (0.8-4.8) L 02/16/25 03:41 Benson # (Auto) 0.8 10^3/uL (0.2-0.9) 02/16/25 03:41 Eos # (Auto) 0.2 10^3/uL (0.0-0.8) 02/16/25 03:41 Baso # (Auto) 0.0 10^3/uL (0.0-0.1) 02/16/25 03:41 Nucleated RBC % (auto) 0 % 02/16/25 03:41 Nucleated RBCs # 0.0 /100WBC 02/16/25 03:41 ESR 11 mm/hr (0-10) H 02/14/25 09:46 Sodium 139 mmol/L (136-145) 02/16/25 03:41 Potassium 4.0 mmol/L (3.5-5.1) 02/16/25 03:41 Chloride 102 mmol/L (98-107) 02/16/25 03:41 Carbon Dioxide 24 mmol/L (22-29) 02/16/25 03:41 Anion Gap 17.0 (5-19) 02/16/25 03:41 BUN 37 mg/dL (8-23) H 02/16/25 03:41 Creatinine 1.4 mg/dL (0.7-1.2) H 02/16/25 03:41 GFR Calculation Not Reportable 02/16/25 03:41 Glucose 104 mg/dL (65-115) 02/16/25 03:41 POC Glucose 120 mg/dL (70-110) H 02/16/25 06:11 Estimat Average Glucose 146 02/14/25 09:46 Hemoglobin A1c 6.7 % (4.0-6.0) H 02/14/25 09:46 Calculated Osmolality 297 mOsm/kg (285-295) H 02/16/25 03:41 Calcium 8.3 mg/dL (8.5-10.5) L 02/16/25 03:41 Total Bilirubin 1.8 mg/dL (0.15-1.2) H 02/14/25 09:46 AST 25 U/L (0-40) 02/14/25 09:46 ALT 19 U/L (0-41) 02/14/25 09:46 Alkaline Phosphatase 137 U/L (40-130) H 02/14/25 09:46 C-Reactive Protein 42.2 mg/L (0.0-4.9) H 02/14/25 09:46 Total Protein 8.2 g/dL (6.6-8.7) 02/14/25 09:46 Albumin 3.9 g/dL (3.5-5.2) 02/14/25 09:46 Globulin 4.3 g/dL (1.3-4.6) 02/14/25 09:46 Vancomycin Trough 22.0 ug/mL (10-15) H 02/16/25 03:41 Vitals Last Vital Signs Temp 97.6 F 02/16/25 04:00 Pulse 62 02/16/25 07:14 Resp 17 02/16/25 07:14 BP 133/78 02/16/25 07:14 Pulse Ox 97 02/16/25 07:14 O2 Del Method Room Air 02/16/25 07:14 Discharge Plan Discharge Patient Disposition: Home Health Service Condition: Stable Prescriptions: New levofloxacin 750 mg tablet 750 mg PO Q24H 10 Days Qty: 10 0RF linezolid 600 mg tablet 600 mg PO BID 10 Days Qty: 20 0RF Continued (DME) diabteic shojolene w/ 3 inserts See Rx Instructions .Route .MEDSUPPLY Qty: 1 0RF Rx Instructions: As directed by the faheem mendez glimepiride 2 mg tablet 2 mg PO DAILY tamsulosin [Flomax] 0.4 mg capsule 0.4 mg PO QPM (DME) diabetic shoes with 3 custom inserts See Rx Instructions .Route .MEDSUPPLY Qty: 1 0RF Rx Instructions: As directed to [facility] metoprolol succinate 25 mg tablet extended release 24 hr 25 mg PO DAILY dapagliflozin propanediol [Farxiga] 10 mg tablet 10 mg PO DAILY escitalopram oxalate 10 mg tablet 10 mg PO DAILY bumetanide 2 mg tablet 2 mg PO BID lisinopril 5 mg tablet 5 mg PO DAILY atorvastatin 40 mg tablet 40 mg PO DAILY potassium chloride 20 mEq/15 mL liquid 20 meq PO BID aspirin 81 mg tablet,delayed release (DR/EC) 81 mg PO DAILY Trulicity 0.75 mg/0.5 mL pen injector 0.75 mg SUBCUT Q7D (DME) Custom Molded Orthotics See Rx Instructions .Route .MEDSUPPLY Qty: 1 0RF Rx Instructions: As directed [facility] [place] allopurinol 300 mg Tablet 150 mg PO BID Discharge Order = DC NOW: Discharge Order (Routine); Ordered 02/16/25 Ordered By: Ean Grayson Referrals: Roberta Mock FNP [Primary Care Provider, Nurse Practitioner] - 02/21/25 8:20 am Jasiel Meadows DPM [Physician, Podiatry] - 02/21/25 2:45 pm Discharge Diet: Cardiac Patient Instructions: Cellulitis, Levofloxacin (By mouth), Linezolid (By mouth), Acute Wound Care (GEN), Abscess (GEN), Opioid Safety, Patient Portal & Shahbaz Instructions Activity Restrictions/Additional Instructions: Continue Betadine-soaked gauze packing with dry sterile dressing and Tito wrap; Discharge Attestations Time Spent in Discharge Care*: greater than 30 min Specific Discharge Activities: educating patient, discussing with pcp/other providers, discussing with leather case finisher/social workers/dc planners, documenting/other paperwork and evaluating patient/reviewing data Status at Discharge: Cognitive status at discharge: cognitively intact, Behavioral status at discharge: cooperative, Functional status at discharge: uses cane/walker, Overall status at discharge: patient is progressing back to baseline Quality Metrics Clinical Quality Measures [ No reported AMI, CVA or VTE this stay] Coding Level of Care Code 89913 Total time (in minutes) for Discharge: 65 Diagnoses Abscess of right foot L02.611 Cellulitis and abscess of foot L03.119; L02.619
[2025-02-16 10:57] VITALS: BP 109/60; PULSE 65; RESP 17; TEMP 36.1; O2SAT 92
[2025-02-16 12:27] VITALS: BP 109/60; PULSE 65; RESP 17; TEMP 36.1; O2SAT 92
--- NOTE | 2025-02-16 12:28 | PC.NURSE ---
Discharge instructions provided to pt and family friend Tonio. No questions or concerns voiced at this time. Dressing supplies provided by Dr. Meadows this am for pt to take home. Pt stopping by pharmacy on way out to pickle pumper meds. To private vehicle via wheelchair with all belongings.
== END 2025-02-16 12:30 | disposition home health service (06) | DRG 638 ==
LOC: ER 11:20 → MEDSURG 11:42
PROVIDERS: Admitting Provider Internal Medicine; Emergency Provider Physician Assistant; Visit Provider Student in an Organized Health Care Education/Training Program
DX: E11.621 Type 2 diabetes mellitus with foot ulcer (principal); L02.611 Cutaneous abscess of right foot; L03.115 Cellulitis of right lower limb; Z68.43 Body mass index [BMI] 50.0-59.9, adult; L97.419 Non-pressure chronic ulcer of right heel and midfoot with unspecified severity; I89.0 Lymphedema, not elsewhere classified; I48.0 Paroxysmal atrial fibrillation; Z95.5 Presence of coronary angioplasty implant and graft; D69.6 Thrombocytopenia, unspecified; N18.9 Chronic kidney disease, unspecified; M48.061 Spinal stenosis, lumbar region without neurogenic claudication; B95.62 Methicillin resistant Staphylococcus aureus infection as the cause of diseases classified elsewhere; I25.10 Atherosclerotic heart disease of native coronary artery without angina pectoris; N40.0 Benign prostatic hyperplasia without lower urinary tract symptoms; M10.9 Gout, unspecified; Z79.82 Long term (current) use of aspirin; I12.9 Hypertensive chronic kidney disease with stage 1 through stage 4 chronic kidney disease, or unspecified chronic kidney disease; E11.22 Type 2 diabetes mellitus with diabetic chronic kidney disease; Z79.84 Long term (current) use of oral hypoglycemic drugs; Z79.85 Long-term (current) use of injectable non-insulin antidiabetic drugs; Z95.818 Presence of other cardiac implants and grafts
CPT/HCPCS: 36415; 36416; 73630; 73720; 80048; 80053; 80202; 82962; 83036; 85025; 85651; 86140; 87040; 96365; 96372; 96375; 99285; J1650; J2185; J3372; J3373; J7050; J9999

== ENCOUNTER → 2025-02-21 14:40 | Outpatient (BNVA) | payer OTHER, MEDICAID, SELFPAY | PROVIDERS: Visit Provider Podiatrist Foot & Ankle Surgery | DX: Z09 Encounter for follow-up examination after completed treatment for conditions other than malignant neoplasm (principal); L60.3 Nail dystrophy; G62.9 Polyneuropathy, unspecified; L84 Corns and callosities; E11.621 Type 2 diabetes mellitus with foot ulcer; L97.518 Non-pressure chronic ulcer of other part of right foot with other specified severity; E11.42 Type 2 diabetes mellitus with diabetic polyneuropathy | CPT/HCPCS: 99213 ==

== ENCOUNTER → 2025-03-07 14:37 | Outpatient (BNVA) | payer OTHER, MEDICAID, SELFPAY | PROVIDERS: Visit Provider Podiatrist Foot & Ankle Surgery | DX: L60.3 Nail dystrophy (principal); G62.9 Polyneuropathy, unspecified; L84 Corns and callosities; E11.42 Type 2 diabetes mellitus with diabetic polyneuropathy | CPT/HCPCS: 99213 ==

== ENCOUNTER → 2025-04-21 13:07 | Outpatient (BNVA) | payer OTHER, MEDICAID, SELFPAY | PROVIDERS: Visit Provider Podiatrist Foot & Ankle Surgery | DX: E11.621 Type 2 diabetes mellitus with foot ulcer (principal); L97.512 Non-pressure chronic ulcer of other part of right foot with fat layer exposed; L03.032 Cellulitis of left toe; L60.3 Nail dystrophy; E11.9 Type 2 diabetes mellitus without complications; G62.9 Polyneuropathy, unspecified; L84 Corns and callosities; E11.42 Type 2 diabetes mellitus with diabetic polyneuropathy | CPT/HCPCS: 11042; 99213 ==

== ENCOUNTER 2025-04-28 10:39 | Emergency (ER) | payer OTHER, MEDICAID, SELFPAY ==
--- OUTSIDE RECORDS SUMMARY | 2024-08-25 04:00 | XMS_ITS ---
Author Organization [facility] Address [address] [place] [address] Care Team Providers Care Electronic Equipment Trades Worker Name Role Phone CHASTITY PARKER Unavailable [phone] JACINTO CRUM Unavailable [phone] REASON FOR VISIT Dorsal Slit Encounters Encounter Location Date Provider Diagnosis [facility] [address] [facility] [place] [address] 08/25/2024 JACINTO CRUM Plan Of Treatment No Information Progress Notes * Axel STRINGER EDOB: 2 (74 yo M)Acc No.[id number]:08/25/2024 Patient: Liliana EMANUELAxel Hyde Provider: Maya CRUM MD :1950 A ge:74 Y S ex:Male Date:08/25/2024 Address:[address] [place] [address] [address], [id number] * Billing Information: * Visit Code: * Procedure Codes: * Electronic signature of AUST IN MD SKYLA on 04/28/2025 at 10:46 AM CDT Sign off status: Pending * Provider: Maya CRUM MD Date: 0 08/25/2024 Generated for Tessie power/Stuart/Mkitting on: 0 04/28/2025 10:46 AM CDT
--- OUTSIDE RECORDS SUMMARY | 2024-09-27 12:15 | XMS_ITS ---
Author Organization [facility] Address [address] [place] [address] Care Team Providers Care In Flight Crew Member Name Role Phone CHASTITY PARKER Unavailable [phone] JACINTO CRMU Unavailable [phone] REASON FOR VISIT 4 wk postop Encounters Encounter Location Date Provider Diagnosis [facility] [address] [facility] [place] [address] 09/27/2024 JACINTO CRUM Plan Of Treatment No Information Progress Notes * Axel STRINGER EDOB: 2 (74 yo M)Acc No.[id number]:09/27/2024 Patient: Liliana UMANAAxel Provider: Maya CURM MD :1950 A ge:74 Y S ex:Male Date:09/27/2024 Address:[address] [place] [address] [address], [id number] Subjective: * Chief Complaints: * 1 . 4 wk postop. * Medical History: Objective: * Vitals: Assessment: Plan: * Treatment: * Billing Information: * Visit Code: * Procedure Codes: * Electronic signature of AUST IN MD SKYLA on 04/28/2025 at 10:47 AM CDT Sign off status: Pending * Provider: Maya CRUM MD Date: 09/27/2024 Generated for Louiei ng/Famarisolg/eTransmitting on: 0 04/28/2025 10:47 AM CDT
--- OUTSIDE RECORDS SUMMARY | 2025-03-28 12:00 | XMS_ITS ---
Author Organization [facility] Address [address] [place] [address] Care Team Providers Care Gearcase Assembler Name Role Phone CHASTITY PARKER Unavailable [phone] JACINTO CRUM Unavailable [phone] REASON FOR VISIT 6 mo w/ ua/pvr Encounters Encounter Location Date Provider Diagnosis [facility] [address] [facility] [place] [address] 03/28/2025 JACINTO CRUM Plan Of Treatment No Information Progress Notes * Axel STRINGER EDOB: 2 (74 yo M)Acc No.[id number]:03/28/2025 Progress Notes Patient: Axel ALFRED Provider: Maya CRUM MD :1950 A ge:74 Y S ex:Male Date:03/28/2025 Address:[address] [place] [address] [address], [id number] Subjective: * Chief Complaints: * 1 . 6 mo w/ ua/pvr. * Medical History: Objective: * Vitals: Assessment: Plan: * Treatment: * Billing Information: * Visit Code: * Procedure Codes: * Electronic signature of AUST IN MD SKYLA on 04/28/2025 at 10:47 AM CDT Sign off status: Pending * Provider: Maya CRUM MD Date: 03/28/2025 Generated for Printi ng/Famarisolg/eTransmitting on: 04/28/2025 10:47 AM CDT
--- NOTE | 2025-04-28 10:41 | XR_ITS ---
WS: [id number] XR chest 1V portable [id number] REASON FOR EXAM: Leg swelling FINDINGS: Moderate tortuosity and ectasia of the thoracic aorta. Significant cardiomegaly. Moderate central pulmonary venous congestion. No acute pulmonary parenchymal or pleural abnormality. No findings of pulmonary edema. Moderate degenerative spondylosis in the mid and lower thoracic spine. 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 XR/XR chest 1V portable [id number] IMPRESSION: Cardiomegaly and pulmonary venous hypertension without acute abnormality.
[2025-04-28 10:42] VITALS: BP 124/70; PULSE 65; TEMP 36.4; O2SAT 95
--- OUTSIDE RECORDS SUMMARY | 2025-04-28 10:46 | XMS_ITS | Encounter Summary ---
Author Organization [facility] Address [address] [place] [address] Care Team Providers Care In Flight Refueling System Repairer Name Role Phone Rosita Carpio DO Primary Care Provider [phone] Encounter Details Date Type Department Care Team (Latest Contact Info) Description 02/24/2025 Results Follow-Up [facility] [address] [place] [address] November, EMBEDDED FIRMWARE DEVELOPER [address] [place] [address] COMPREHENSIVE METABOLIC PANEL, CBC WITH DIFFERENTIAL Social History Tobacco Use Types Packs/Day Years [...] on file documented as of this encounter Plan of Treatment Upcoming Encounters Date Type Department Care Team ( Contact Info) Description 05/04/2025 8:40 AM CDT Office Visit [facility] [address] [place] [facility] [address] Rosita Carpio DO [address] [place] [id number] 05/24/2025 9:00 AM CDT Office Visit [facility] [address] [place] [address] Roberta Mock, [facility] [address] [place] [address] 07/08/2025 10:20 AM VACUUM CLEANER REPAIRER Office Visit [facility] [address] [place] [address] HornJacobvenkateshmarnie Adalberto, [facility] [address] [place] [phone] Scheduled Orders Name Type Priority Associated Diagnoses Orde r Schedule COMPREHENSIVE METABOLIC PANEL Lab Routine Type 2 diabetes mellitus with stage 3a chronic kidney disease, without long-term current use of insulin (CMS/HCC) Expected: 03/10/2025, Expires: 02/24/2026 documented as of this encounter Visit Diagnoses Diagnosis Type 2 diabetes mellitus with stage 3a chronic kidney disease, without long-term current use of insulin (CMS/HCC)- Primary documented in this encounter Additional Health Concerns Assessment Noted Time PHQ-9 Depression Total Score: 1 12/07/19 25 8:39 AM CDT documented as of this encounter Care Teams In Flight Refueling System Repairer Relationship Specialty Start Date End Date Rosita Carpio DO [address] [place] [phone] PCP - General Family Practice 06/05/23 documented as of this encounter
--- OUTSIDE RECORDS SUMMARY | 2025-04-28 10:46 | XMS_ITS | Encounter Summary ---
Author Organization [facility] [employer], [facility] Address [address] [place] [address] Phone Care Team Providers Care Jewish Thought Professor Name Role Phone Rosita Carpio DO Primary Care Provider [phone] Encounter Details Date Type Department Care Team (Late st Contact Info) Description 06/11/2024 Orders Only [facility] [address] [place] [address] Neuropathy, not otherwise specified Social History Tobacco Use Types Packs/Day Years Used Date Smoking Tobacco: Never Assessed Sex and Gender Information Value Date Recorded Sex Assigned at Not on file Legal Sex Male 4:02 PM EDT Gender Identity Not on file Sexual Orientation Not on file documented as of this encounter Plan of Treatment Upcoming Encounters Date Type Department Care Team (Late st Contact Info) Description 06/13/2025 10:30 AM NETWORK RELATIONS CONSULTANT Office Visit [facility], [facility] [address] [place] [address] Tahmina Holm NP [address] [facility] [address] [place] [address] documented as of this encounter Visit Diagnoses Diagnosis Neuropathy, not otherwise specified documented in this encounter Care Teams Jewish Thought Professor Relationship Specialty Start Date End Date Rosita Carpio DO [address] [place] [phone] PCP - General Family Medicine 06/11/24 documented as of this encounter
--- NOTE | 2025-04-28 10:47 | ECG_ITS ---
[facility] 2025-04-28 Pat Name: Axel Wilcox Department: Room: Gender: Male Hides Inspector: : 1950 Requested By: Felipe Blood Order Number: [id number] Brandie MD: Baldemar Banegas M.D. Measurements Intervals [place] Rate: 55 P: 0 NM: 0 QRS: 99 QRSD: 137 T: -29 QT: 479 QTc: 460 Interpretive Statements ATRIAL FIBRILLATION WITH SLOW VENTRICULAR RESPONSE RIGHT BUNDLE BRANCH BLOCK [120+ ms QRS DURATION, UPRIGHT V1, 40+ ms S IN I/aVL/V4/V5/V6] ANTEROSEPTAL MYOCARDIAL INFARCTION , OF INDETERMINATE AGE [40+ ms Q WAVE IN V1-V4] No previous ECG available for comparison Electronically Signed On 04-30-2025 13:12:50 CDT by Baldemar Banegas M.D. [email or web address]
--- OUTSIDE RECORDS SUMMARY | 2025-04-28 10:47 | XMS_ITS | Clinical Summary ---
Author Organization [facility] [employer], [facility] Address [address] [place] [address] Phone Care Team Providers Care Door Frame Builder Name Role Phone Rosita Carpio Primary Care Provider [phone] Allergies Active Allergy Reactions Criticality Noted Date Comments Penicillins Swelling Low 06/05/2023 Medications tamsulosin (FLOMAX) 0.4 MG 24 hr capsule Take 0.4 mg by mouth in the morning. Active Lactobacillus Acid-Pectin (ACIDOPHILUS/CI TRUS PECTIN PO) Take 1 capsule by mouth in the morning. Active allopurinol (ZYLOPRIM) 300 MG tablet Take 150 mg by mouth in the morning. 4 Active atorvastatin (LIPITOR) 40 MG tablet Take 40 mg by mouth in the morning. 4 Active aspirin (ST CYNDI) 81 MG EC tablet Take 81 mg by mouth in the morning. Active omeprazole (PriLOSEC) [address] capsule Take 20 mg by mouth in the morning. 4 Active potassium chloride (KLOR-CON M20) 20 MEQ CR tablet Take 20 mEq by mouth in the morning and 20 mEq in the evening. 4 Active escitalopram (LEXAPRO) 10 MG tablet Take 10 mg by mouth in the morning. 4 Active bumetanide (BUMEX) 2 MG tablet Take by mouth Take 2 tablets qam and 1 in the afternoon Active lisinopril 5 MG tablet Take 5 mg by mouth in the morning. 4 Active metOLazone 2.5 MG tablet Take 2.5 mg by mouth 1 (one) time each day 5 Active glimepiride (AMARYL) 2 MG tablet Take 2 mg by mouth 1 (one) time each day before breakfast Active nystatin (MYCOSTATIN) powder Apply topically in the morning and in the evening. Active Active Problems No known active problems Family History Medical History Relation Comments Diabetes Father Heart disease Father Cancer Mother Relation Status Comments Father Mother Social History Tobacco Use Types Packs/Day Years Used Date Smoking Tobacco: Former Cigarettes Smokeless Tobacco: Never Tobacco Cessation:Counseling Given: Not Answered Alcohol Use Standard Drinks/Week Comments Yes 0 (1 standard drink = 0.6 oz pur e alcohol) very very rare Sex and Gender Information Value Date Recorded Sex Assigned at Not on file Legal Sex Male 4:02 PM EDT Gender Identity Not on file Sexual Orientation Not on file Last Filed Vital Signs Vital Sign Reading Time Taken Comments Blood Pressure 100/60 12/08/2024 1:05 PM CDT Pulse 66 12/08/2024 1:05 PM CDT Temperature - - Respiratory Rate - - Oxygen Saturation 95% 12/08/2024 1:05 PM CDT Inhaled Oxygen Concentration - - Weight 124 kg (272 lb 9.6 oz) 12/08/2024 1:05 PM CDT Height 154.9 cm (5' 1 ) 12/08/2024 1:05 PM CDT Body Mass Index 51.51 12/08/2024 1:05 PM CDT Plan of Treatment Upcoming Encounters Date Type Department Care Team (Late st Contact Info) Description 06/13/2025 10:30 AM ASSOCIATE PROFESSOR OF LAW Office Visit [facility], [facility] [address] [place] [address] Tahmina Holm NP [address] [phone] Health Maintenance Due Date Last Done Comments Pneumococcal Vaccine: 50+ Ye ars (1 of 2 - PCV) 1970 Colorectal Cancer Screening: Annual FOBT 2000 Colorectal Cancer Screening: Colonoscopy 2000 Colorectal Cancer Screening: Sigmoidoscopy 2000 Diabetes: Hemoglobin A1C 06/23/2024 Diabetes: Ophthalmology Exam 06/23/2024 Diabetes: Pedal Pulse Checked 06/23/2024 Diabetes: Sensory Foot Exam 06/23/2024 Diabetes: Visual Foot Exam 06/23/2024 Influenza Vaccine (#1) 2025 Hepatitis B Vaccine Aged Out No longe r eligible based on patient's age to complete this topic Insurance [employer] Senior Supplemental ([id number]) Medicare Medicaid [place] ([id number]) Care Teams Door Frame Builder Relationship Specialty Start Date End Date Rosita Carpio DO [address] [facility] [place] [address] PCP - General Family Medicine 06/11/24
--- OUTSIDE RECORDS SUMMARY | 2025-04-28 10:47 | XMS_ITS | Patient Health Record ---
Author Organization [email or web address] Address [address] [place] [address] Care Team Providers Care Iron Plastic Bullet Maker Name Role Phone CHASTITY PARKER Unavailable [phone] SKYLA JACINTO Unavailable [phone] Allergies Allergen (clinical drug ingredient) Drug/Non Drug Allergy documented on EMR Reaction Allergy Type Onset Date Status Penicillin Unknown Drug Allergy Active Results Component Value Reference Range Notes Urinalysis, Routine Reviewed date:05/03/2024 01:43:53 PM Interpretation: Performing Lab: Notes/Report: Urine-Color yellow Appearance clear Glucose 3+ Bilirubin - Ketones - Specific [place] 1.010 Occult Blood 2+ pH 6.5 Urine Protein - Urobilinogen,Semi-Qn - Nitrite, Urine - WBC Esterase 1+ Urinalysis, Routine Reviewed date:07/22/2024 09:48:44 AM Interpretation: Performing Lab: Notes/Report: Urine-Color yellow Appearance cloudy Glucose 3+ Bilirubin - Ketones - Specific [place] 1.015 Occult Blood 3+ pH 6.0 Urine Protein - Urobilinogen,Semi-Qn - Nitrite, Urine - WBC Esterase 1+ Glucometer WBG Reviewed date:08/25/2024 03:14:35 PM Interpretation: Performing Lab: Notes/Report: Glucometer WBG 116 65-110 MG/DL Notify ~Notify RN~Meter: [id number]~Operato r: [id number] FREE CLEM Testing performed at: [address] [place] [address] CLIA ID [id number] Basic Metabolic Panel Reviewed date:08/19/2024 09:30:41 AM Interpretation: Performing Lab: Notes/Report: Testing performed at [facility], [address] [place] [address] [place] [address]. CLIA ID#: [id number] T-psmflx-m-benzoquinone imine (NAPQI) is a metabolite of acetaminophen, [...] [facility] recommends using the CKD-EPI Creatinine Equation(2020) to estimate GFR. Testing performed at: [address] [place] [address] CLIA ID [id number] Use of this assay is not recommended [...] 8.7-10.4 MG/DL Osmo Serum,Calculated 300 280-300 MOSM/KG CBC w/ Auto Diff Reviewed date:08/19/2024 09:30:41 AM Interpretation: Performing Lab: Notes/Report: Testing performed at: [address] [place] [address] CLIA ID [id number] WBC 4.4 4.5-11.0 X10'3 RBC 4.39 4.50-5.90 X10'6 Hgb 12.8 13.5-17.5 G/DL Hct 40.5 41.0-53.0 % MCV 92.3 80.0-100.0 FL MCH 29.2 27.0-31.0 PG MCHC 31.6 31.0-37.0 G/DL Platelet 63 150-400 X10'3 RDW-SD 54.2 35.0-49.0 FL RDW-CV 15.6 12.2-15.6 % MPV ---- 9.2-12.0 FL Neutro Auto% 68.5 40.0-70.0 % Lymph Auto% 17.3 22.0-44.0 % [place] Auto% 8.8 3.0-7.0 % Eos Auto% 4.5 2.0-4.0 % Baso Auto% 0.7 0.0-1.0 % Imm Gran% .2 .0-.4 % Neutro Abs 3.05 .80-7.70 Absolute Neutrophil Count 3050 Lymph Abs .77 .10-4.10 [place] Abs .39 .20-1.00 Eos Abs .20 .00-.40 Baso Abs .03 .00-.20 Imm Gran Abs .01 .00-.10 NRBC# .00 .00-.20 NRBC% .00 .00-.20 /100 int act WBC's Culture Urine Reviewed date:2024 08:24:43 AM Interpretation: Performing Lab: Notes/Report: Testing performed at: [address] [address] CLIA ID [id number] Culture Urine AXEL Albert Culture Urine t: Culture Urine Culture Urine Accessio [id number] Culture Urine n: Culture Urine Microbiology Culture Urine PROCEDURE: Culture U rine [] Culture Urine SOURCE: Urine BODY SITE: Culture Urine COLLECTED DATE/TIME: 08/18/2024 16:[address] LIGHT WIRER RECEIVED DATE/TIME: 08/18/2024 17:[address] LIGHT WIRER Culture Urine START DATE/TIME: 08/18/2024 17:[address] L[facility] WIRER FREE TEXT SOURCE: Culture Urine FINAL REPORT Culture Urine Final Report [] Culture Urine Verified Date/Time: 08/21/2024 07:[address] LIGHT WIRER Culture Urine > 10,000 cfu/ml mixe d superficial gareth Culture Urine Multiple microorgani sms present Culture Urine Probable contamination UA Reflex -- [id number] Reviewed date:08/19/2024 09:30:41 AM Interpretation: Performing Lab: Notes/Report: Testing performed at: [address] [address] CLIA ID [id number] Color UA Yellow Clarity UA Clear Specific gravity UA 1.007 1.005-1.030 Urine pH 5.5 5.0-8.0 Urine Glucose Negative Urine Bilirubin Negative Urine Ketone Negative Urine Blood Negative Urine Protein Negative Urobilinogen 0.2 0.1-1.0 Urine Nitrite Negative Urine Leukocyte Trace Normal UA Yes Urine Culture No Immature PLT Fraction Reviewed date:08/19/2024 09:30:41 AM Interpretation: Performing Lab: Notes/Report: Immature PLT Fraction 16.7 1.6-7.1 % Platelet 63 150-400 X10'3 Testing perfor med at: [address] [place] [address] CLIA ID [id number] Reason For Referral No Information Medications Medication SIG (Take, Route, Frequency, Duration) Notes Start Date End Date Status Potassium Chloride ER 20 MEQ 1 tablet with food Orally Once a day Active Bumetanide 2 MG 1 tablet Orally three times a day Active Lisinopril 5 MG 0.5 Orally Once a day / tab Active Omeprazole 20 MG 1 capsule [...] Tamsulosin HCl 0.4 MG 1 capsule Orally daily; Duration: 90 days Active Social History Tobacco Use: Social History Observation Description Date Details (start date - stop date) Former Smoker NA - NA Tobacco Control (Standard) Question Answer Notes Tobacco use: Former smoker How long has it been since you last smoked? Grea ter than 10 years Problems Problem Type SNOMED Code ICD Code Onset Dates Problem Status W/U Status Risk Notes Problem Phimosis (599647623) Phimosis (N47.1) Active confirmed Problem Benign prostatic hyperplasia (688881669) BPH (benign prostatic hyperplasia) (N40.0) Active confirmed Problem Urinary incontinence (997295954) Urinary incontinence (R32) Active confirmed Problem Type II diabetes mellitus without complication (020459263) Type 2 diabetes mellitus not at goal (E11.9) Active confirmed Problem Varicocele (71261660) Varicocele (I86.1) Active confirmed Problem Type II diabetes mellitus without complication (679959343) Diabetes (E11.9) Active confirmed Problem Disorder of penis (97009155) Penile edema (N48.89) Active confirmed Problem Benign prostatic hypertrophy with outflow obstruction (691106154) BPH loc w urin obs/LUTS (N40.1) Active confirmed Vital Signs Heart Rate 62 /min 08/18/2024 Blood pressure diastolic 81 mm Hg 07/22/2024 Height-cm 160.02 cm 09/27/2024 Weight-kg 127.91 kg 09/27/2024 Height 63 in 09/27/2024 Blood pressure systolic 132 mm Hg 07/22/2024 Weight 282 lbs 09/27/2024 BMI 49.95 kg/m2 09/27/2024 Procedures Procedure Date Ordered Date Performed Result Body Sit e Bladder Scan 05/03/2024 05/03/2024 N/A Bladder Scan 07/22/2024 07/22/2024 N/A Encounters Encounter Location Date Provider Diagnosis [facility] [address] [place] [address] 08/25/2024 JACINTO PINEDA [facility], [facility] [address] [place] [address] 05/03/2024 JACINTO PINEDA BPH loc w urin obs/L UTS N40.1 ; Urinary frequency R35.0 ; Weak urinary stream R39.12 ; Gross hematuria R31.0 ; Scrotal edema N50.89 ; Penile edema N48.89 ; Uncircumcised male Z78.9 ; Varicocele I86.1 ; History of UTI Z87.440 ; History of kidney stones Z87.442 ; History of smoking Z87.891 and Family history of prostate cancer Z80.42 [facility], [facility] [address] [place] [address] 07/22/2024 CHASTITY PARKER Weak urinary stream R39.12 ; Uncircumcised male Z78.9 ; Urinary frequency R35.0 ; Urinary incontinence R32 ; UTI (urinary tract infection) N39.0 ; BPH loc w urin obs/LUTS N40.1 ; Varicocele I86.1 ; History of smoking Z87.891 ; Family history of prostate cancer Z80.42 and Type 2 diabetes mellitus not at goal E11.9 [facility], [facility] [address] [place] [address] 08/18/2024 CHASTITY PARKER Preoperative examination Z01.818 ; Phimosis N47.1 ; Uncircumcised male Z78.9 ; Weak urinary stream R39.12 ; Urinary frequency R35.0 ; Urinary incontinence R32 ; BPH loc w urin obs/LUTS N40.1 ; Varicocele I86.1 ; History of smoking Z87.891 ; Family history of prostate cancer Z80.42 and Type 2 diabetes mellitus not at goal E11.9 [facility], [facility] [address] [place] [address] 09/27/2024 JACINTO PINEDA Phimosis N47.1 ; Uncircumcised male Z78.9 ; Weak urinary stream R39.12 ; Urinary frequency R35.0 ; Urinary incontinence R32 ; BPH loc w urin obs/LUTS N40.1 ; Varicocele I86.1 ; History of smoking Z87.891 ; Family history of prostate cancer Z80.42 and Type 2 diabetes mellitus not at goal E11.9 [facility], [facility] [address] [place] [address] 06/23/2024 CHASTITY PARKER Diabetes E11.9 [facility] [address] [place] [address] 07/20/2024 JACINTO PINEDA [facility], [facility] [address] [facility] [address] [place] [address] 07/27/2024 CHASTITY PARKER Gross hematuria R31. 0 and Pre-op exam Z01.818 [facility] [address] [place] [address] 01/24/2025 CHASTITY PARKER Assessments Encounter Date Diagnosis (ICD Code) Assessment Notes Treatment Notes Treatment Clinical Notes Section Notes 05/03/2024 Urinary frequency (ICD-10 - R35.0) 73 [...] R39.12) 07/22/2024 Uncircumcised male (ICD-10 - Z78.9) 09/27/2024 Phimosis (ICD-10 - N47.1) 74 yo male s/p Dorsal slit and Lysis of penile adhesions on 08/25/2024. Incision has healed. He has some edema of the penile foreskin but no evidence of infection today. Plan: RTC in 6 months with UA and PVR all questions answered 07/27/2024 Gross hematuria (ICD-10 - R31.0) 09/27/2024 Uncircumcised male (ICD-10 - Z78.9) 74 yo male s/p Dorsal slit and Lysis of penile adhesions on 08/25/2024. Incision has healed. He has some edema of the penile foreskin but no evidence of infection today. Plan: RTC in 6 months with UA and PVR all questions answered 08/18/2024 Phimosis (ICD-10 - N47.1) 08/18/2024 Preoperative examination (ICD-10 - Z01.818) 08/18/2024 Uncircumcised male (ICD-10 - Z78.9) 07/27/2024 Pre-op exam (ICD-10 - Z01.818) 09/27/2024 Weak urinary stream (ICD-10 - R39.12) 74 yo male s/p Dorsal slit and Lysis of penile adhesions on 08/25/2024. Incision has healed. He has some edema of the penile foreskin but no evidence of infection today. Plan: RTC in 6 months with UA and PVR all questions answered 07/22/2024 Urinary frequency (ICD-10 - R35.0) 05/03/2024 [...] it is both accurate and complete. 05/03/2024 Gross hematuria (ICD-10 - R31.0) 73 [...] it is both accurate and complete. 07/22/2024 Urinary incontinence (ICD-10 - R32) 09/27/2024 Urinary frequency (ICD-10 - R35.0) 74 yo male s/p Dorsal slit and Lysis of penile adhesions on 08/25/2024. Incision has healed. He has some edema of the penile foreskin but no evidence of infection today. Plan: RTC in 6 months with UA and PVR all questions answered 08/18/2024 Weak urinary stream (ICD-10 - R39.12) 08/18/2024 Urinary frequency (ICD-10 - R35.0) 07/22/2024 UTI (urinary tract infection) (ICD-10 - [...] and it is both accurate and complete. 09/27/2024 Urinary incontinence (ICD-10 - R32) 74 yo male s/p Dorsal slit and Lysis of penile adhesions on 08/25/2024. Incision has healed. He has some edema of the penile foreskin but no evidence of infection today. Plan: RTC in 6 months with UA and PVR all questions answered 07/22/2024 BPH loc w urin obs/LUTS (ICD-10 - N40.1) 05/03/2024 Penile edema (ICD-10 - N48.89) 73 [...] call sooner with any concerns Tawanna Falcon Scribe am scribing for, and in the presence of, Dr. Pineda. I, Dr. Jacinto Pineda, personally performed the services prescribed in this documentation , as scribed by Tawanna Cardoza, in my presence, and it is both accurate and complete. 08/18/2024 Urinary incontinence (ICD-10 - R32) 09/27/2024 BPH loc w urin obs/LUTS (ICD-10 [...] - N40.1) 07/22/2024 Varicocele (ICD-10 - I86.1) 05/03/2024 Uncircumcised male (ICD-10 - Z78.9) 73 [...] it is both accurate and complete. 07/22/2024 History of smoking (ICD-10 - Z87.891) 09/27/2024 History of smoking (ICD-10 - Z87.891) 74 yo male s/p Dorsal slit and Lysis of penile adhesions on 08/25/2024. Incision has healed. He has some edema of the penile foreskin but no evidence of infection today. Plan: RTC in 6 months with UA and PVR all questions answered 08/18/2024 Varicocele (ICD-10 - I86.1) 09/27/2024 Family history of prostate cancer (ICD-10 - Z80.42) 74 yo male s/p Dorsal slit and Lysis of penile adhesions on 08/25/2024. Incision has healed. He has some edema of the penile foreskin but no evidence of infection today. Plan: RTC in 6 months with UA and PVR all questions answered 08/18/2024 History of smoking (ICD-10 - Z87.891) 05/03/2024 History of UTI (ICD-10 - Z87.440) [...] it is both accurate and complete. 07/22/2024 Other UA appears infected. He is [...] He is under care of Cardiology at [facility]. He is unsure of Dr. dumont as [...] slit, possible circumcision with Dr. Pineda at [facility]. 08/18/2024 Other Patient schedul ed for dorsal slit on 08/25/[address] Pineda at [facility]. How the procedure was performed was discussed along with risks/benefits/alt ernatives and postprocedural expectations. Patient takes daily ASA, understands to hold x 7 days prior to procedure. Denies problems with anesthesia in the past, he wears a BIPAP at night. No new medications or diagnoses since last visit. Patient has presurgical testing at [facility]. Urine sent for culture and [...] 07/27/2024 Hemoglobin A1c 06/23/2024 Electrocardiogram, 12 Lead [id number] 07/27/2024 Insurance Providers Payer Name Payer Address Payer Phone Subscriber Number Group Number Insured Name Patient Relationship to Insured Coverage Start Date Coverage End Date [facility] Medicare Advantage HMO [address] [address] [place], [place] [id number] [facility] [id number] Brenden Axel Self - patient is the insured Medical (General) History Medical History History ICD Code diabetes depression HTN Heart disease ED Incontinence of urine H/O kidney stones Surgical History Surgery Date(Month/Year) appendectomy abdominal surgery watchman device cataracts 2018 dorsal slit Hospitalization History Reason Date(Month/Year) infection in legs 2023
--- OUTSIDE RECORDS SUMMARY | 2025-04-28 10:48 | XMS_ITS | Clinical Summary ---
Author Organization [facility] [address] [facility] Address [address] [place] [address] Phone Care Team Providers Care Citrix Engineer Name Role Phone BalajiRosita riddle DO Primary Care Provider [phone] Allergies Active Allergy Reactions Criticality Noted Date Comments Penicillins Swelling Low 06/05/2023 Medications aspirin (ECOTRIN EC) 81 mg Tablet, Delayed Release (E.C.)Indication s:Presence of Watchman left atrial appendage closure device,HFrEF (heart failure with reduced ejection fraction) (CMS/HCC),Benign hypertension,His tory of heart attack,Permanent atrial fibrillation (CMS/HCC),Asympt omatic bradycardia Take 81 mg by mouth daily. 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 Take 1/2 tablet once daily 45 Tablet 3 4 Active omeprazole (PriLOSEC) 20 mg Capsule, Delayed Release(E.C.)Ind ications:Gastroe sophageal reflux disease without esophagitis Take 1 Capsule (20 mg) by mouth daily. 90 Capsule 3 4 Active tamsulosin (FLOMAX) 0.4 mg capsule Take 0.4 mg by mouth daily after supper. Active L. acidophilus/pect in, citrus (ACIDOPHILUS-PEC TIN, CITRUS ORAL) Take 1 Capsule by mouth daily. Active nystatin (NYSTOP) 100,000 unit/gram powderIndication s:Candidal intertrigo Apply to affected area 2 times daily. 60 Gram 3 4 Active atorvastatin (LIPITOR) 40 mg tabletIndication s:Dyslipidemia take 1 tablet by mouth once daily 100 Tablet 2 5 Active metOLazone (ZAROXOLYN) 2.5 mg tablet Take 1 Tablet (2.5 mg) by mouth 1 time daily as needed for Other (See Comment) (for worsening lower extremity edema. contact program proposals coordinator office if need to use). 30 Tablet 5 Active escitalopram oxalate (LEXAPRO) 10 mg tabletIndication s:Major depressive disorder with single episode, in full remission Take 1 Tablet (10 mg) by mouth daily. 100 Tablet 3 5 Active potassium CHLORIDE (K-DUR,KLOR-CON M20) 20 mEq Extended Release tabletIndication s:HFrEF (heart failure with reduced ejection fraction) ([facility]) Take 1 Tablet (20 mEq) by mouth 2 times daily. 180 Tablet 3 5 Active glimepiride (AMARYL) 2 mg tabletIndication s:Type 2 diabetes mellitus with other circulatory complication, without long-term current use of insulin ([facility]) Take 1 Tablet (2 mg) by mouth daily with breakfast. 100 Tablet 3 5 Active metoprolol succinate (TOPROL XL) 25 mg Extended Release 24 hour tablet Take 25 mg by mouth. Active dapagliflozin propanediol (Farxiga) 10 mg Tablet Take 1 Tablet (10 mg) by mouth daily. 90 Tablet 4 5 Active dulaglutide (TRULICITY) 0.75 mg/0.5 mL injection Inject 0.5 mL (0.75 mg) by subcutaneous injection every 7 days. 9 mL 3 5 Active bumetanide (BUMEX) 2 mg tablet Take 1 Tablet (2 mg) by mouth two times daily, 7 hours apart. 60 Tablet 5 Active lisinopriL (PRINIVIL) 5 mg tabletIndication s:Essential hypertension Take 0.5 Tablets (2.5 mg) by mouth daily. 90 Tablet 1 5 Active Active Problems Problem Noted Date Diagnosed Date [...] a watchman 27 mm device from lot #[id number] and 3 device measurement of the left [...] Encounters Date Type Department Care Team Description 04/27/2025 External Device Data STL ABSTRACTION Provider, Abstract 04/01/2025 Telephone [facility] [address] [place] [address] Mocknovember, INPUT OUTPUT CLERK Provider Call 03/30/2025 External Device Data STL ABSTRACTION Provider, Abstract 03/28/2025 Results Follow-Up [facility] [address] [place] [address] Jose Horn, INPUT OUTPUT CLERK COLON CANCER SCREEN, STOOL DNA 03/22/2025 External Device Data STL ABSTRACTION Provider, Abstract 03/08/2025 Telephone [facility] [address] [place] [address] Rosita Carpio DO Provider Call; Water weight gain 03/01/2025 External Device Data STL ABSTRACTION Provider, Abstract 02/24/2025 Results Follow-Up [facility] [address] [place] [address] MockNovember, INPUT OUTPUT CLERK COMPREHENSIVE METABOLIC PANEL, CBC WITH DIFFERENTIAL 02/22/2025 Telephone [facility] [address] [place] [address] Rosita Carpio DO Provider Call; Provider Call 02/21/2025 8:20 AM CDT Office Visit [facility] [address] [place] [address] Mocknovember, INPUT OUTPUT CLERK Hospital discharge follow-up (Primary Dx); Cellulitis and abscess of toe of right foot; Essential hypertension; Type 2 diabetes mellitus with stage 3a chronic kidney disease, without long-term current use of insulin ([facility]); Thrombocytopenia 02/18/2025 Telephone [facility] [address] [place] [address] Rosita Carpio, DO Provider Call 02/16/2025 Telephone [facility] [address] [place] [address] Rosita Carpio, DO Provider Call 02/16/2025 Abstract [facility] [address] [place] [address] Rosita Carpio, DO 02/16/2025 Orders Only [facility] [address] [place] [address] Provider, Abstract 02/01/2025 Orders Only [facility] Health Information Management [place] [address] [place] [address] Provider, Abstract 01/26/2025 External Device Data STL ABSTRACTION Provider, Abstract from Last 3 Months Family History Medical [...] Sign Reading Time Taken Comments Blood Pressure 116/62 02/21/2025 8:18 AM CDT Pulse 61 02/21/2025 8:18 AM CDT Temperature 36.2 C (97.2 F) 02/21/2025 8:18 AM CDT Respiratory Rate 18 02/21/2025 8:18 AM CDT Oxygen Saturation 96% 02/21/2025 8:18 AM CDT Inhaled Oxygen Concentration - - Weight 132.5 kg (292 lb) 02/21/2025 8:18 AM CDT Height 160 cm (5' 3 ) 02/21/2025 8:18 AM CDT Body Mass Index 51.73 02/21/2025 8:18 AM CDT Plan of Treatment Upcoming Encounters Date Type Department Care Team (Late st Contact Info) Description 05/04/2025 8:40 AM CDT Office Visit [facility] [address] [place] [address] Rosita Carpio, [address] [place] [address] 05/24/2025 9:00 AM CDT Office Visit [facility] [address] [place] [address] MockNovember, [facility] [address] [place] [address] 07/08/2025 10:20 AM AWNING FRAME MAKER Office Visit [facility] [address] [place] [address] Jose Horn, [facility] [address] [place] [address] Health Maintenance Due Date Last Done Comments DTAP/TDAP/TD VACCINES (1 - Tdap) 1970 PNEUMOCOCCAL VACCINE 50+ YEA RS (1 of 2 - PCV) 1970 COLORECTAL SCREENING 1996 FIT/FOBT Q 1 year 1996 Flex Sig/CT Colonography Q 5 years 1996 ZOSTER VACCINE (1 of 2) 2001 RSV VACCINE (60+ or ) (1 - Risk 60-74 years 1-dose series) 2011 Medicare Advantage ([place]) Preventative Visit/Annual Wellness Visit 08/11/2024 07/02/2024, 06/19/2023 INFLUENZA VACCINE (#1) 2025 LDL CHOLESTEROL ANNUAL 07/02/2025 , 01/12/2024, 09/23/2023, Additional history exists Traditional Medicare (ACO) A nnual Wellness Visit 07/03/2025 07/02/2024, 06/19/2023 DIABETES MICROALBUMIN ANNUAL SCREEN 08/16/2025 08/16/2024, 09/23/2023, 06/05/2023 DIABETES HBA1C Q 6 MONTHS 08/17/20252024, 09/15/2024, 06/03/2024, Additional history exists DIABETES ANNUAL RETINAL EXAM 09/01/2025, 09/01/2024, 05/13/2019 DIABETES ANNUAL FOOT EXAM 11/11/2025 11/11/2024, DIABETES: A1C (Auto Order) 02/14/202602/14, 09/15/2024, 06/03/2024, Additional history exists Colorectal Cancer Screening 03/18/2028 FIT-DNA Q 3 years 03/18/2028 03/18/2025 [facility] uACR (Auto Order) Completed 08/16/2024 , 09/23/2023, 06/05/2023 Abdominal Aortic Aneurysm (A AA) Screening Completed 10/11/2024, 05/26/2024 [facility] eGFR (Auto Order) Completed 02/21/2025 , 02/16/2025, 12/20/2024, Additional history exists Procedures Procedure Name Priority Date/Time Associated Diagnosis Comments COLON CANCER SCREEN, STOOL DNA Routine 03/18/2025 3:30 AM CDT Encounter for colorectal cancer screening CBC WITH DIFFERENTIAL Routine 02/21/2025 9:03 AM CDT Hospital discharge follow-up Cellulitis and abscess of toe of right foot Essential hypertension Type 2 diabetes mellitus with stage 3a chronic kidney disease, without long-term current use of insulin ([facility]) COMPREHENSIVE METABOLIC PANEL Routine 02/21/2025 9:03 AM CDT Hospital discharge follow-up Cellulitis and abscess of toe of right foot Essential hypertension Type 2 diabetes mellitus with stage 3a chronic kidney disease, without long-term current use of insulin (CMS/HCC) BASIC METABOLIC PANEL Routine 02/16/2025 1:06 PM CDT HEMOGLOBIN A1C Routine 02/14/2025 DIABETES FOOT EXAM Routine 11/11/2024 8:[address] ABDOMEN PELVIS WO CONTRAST Stat 10/11/2024 2:51 PM AWNING FRAME MAKER DIABETES EYE EXAM Routine 09/01/2024 9:56 AM AWNING FRAME MAKER MICROALBUMIN/CREATINI NE RATIO, RANDOM UR Routine 08/16/2024 11:21 AM AWNING FRAME MAKER Type 2 diabetes mellitus with other circulatory complication, without long-term current use of insulin (CMS/HCC) LIPID PANEL Routine 07/02/2024 12:07 PM AWNING FRAME MAKER HFrEF (heart failure with reduced ejection fraction) (CMS/HCC) Type 2 diabetes mellitus with other circulatory complication, without long-term current use of insulin (CMS/HCC) Essential hypertension Permanent atrial fibrillation (CMS/HCC) Stage 3a chronic kidney disease (CMS/HCC) Dyslipidemia from Last 3 Months or Most Recently Relevant to Health Maintenance Results * COLON CANCER SCREEN, STOOL DNA (03/18/2025 3:30 AM CDT) Pathologist [facility] COLOGUARD RESULT Negative Negative [employer] Comment: The Cologuard Plus (TM) test was performed on this specimen. NEGATIVE TEST RESULT. A negative (normal) Cologuard Plus result means the patient has a [id number] chance of having colorectal cancer (CRC) or advanced precancer (polyps or lesions that could become cancer). Negative is the normal value (reference range) for this assay. Guidelines recommend screening again 3 years after a negative Cologuard Plus result. Continued screening increases the chance of finding CRC early or preventing it entirely. A clinical validation study showed the Cologuard Plus test is effective at ruling out CRC. Out of every 10,000 patients testing negative, approximately 2 will be falsely reassured that they do not have CRC, and out of every 100 patients testing negative, approximately 7 patients will be falsely reassured they do not have advanced precancer. TEST DESCRIPTION: The Cologuard Plus test is a multi-target stool DNA (mt-sDNA) test that analyzes DNA and hemoglobin biomarkers in stool. It uses a proprietary algorithm to qualitatively detect CRC and advanced precancer. It is FDA-approved and indicated for use in adults 45 years or older at average risk for CRC. A positive (abnormal) result should be followed by a colonoscopy. Patients with a negative (normal) result should screen again in 3 years. False positive and false negative results may occur. The USPSTF recommends the Cologuard test as a CRC screening option. Their modeling estimates that screening with the test every 3 years from ages 45-85 could prevent up to 73% of CRC and avoid up to 85% of CRC deaths. A 18,911-patient clinical trial found the Cologuard Plus test effectively detects CRC and precancer. The study found the test was 95% sensitive for CRC, 43% sensitive for advanced precancer, and had a 91% specificity (Cologuard Plus Clinician Brochure. [employer]. [place], [place].). Visit [email or web address].Voxify/about/cntfjowa-igiosgrjmet-iugbrhiblvl for more test information, references, warnings, and precautions. Stool STOOL SPECIMEN / Unknown 03/18/2025 3:30 AM CDT 03/19/2025 6:14 PM CDT us Jose Horn INPUT OUTPUT CLERK BODY FLUIDS AND STOOLS Fin al Result [employer] CLIA # [id number] [address] , [address] [place] [address] * (ABNORMAL) CBC WITH DIFFERENTIAL (02/21/2025 9:03 AM CDT) WBC 4.6 3.8 - 10.8 Thousand/u L [facility] RBC 4.03(L) 4.20 - 5.80 Million/uL [facility] HEMOGLOBIN 12.7(L) 13.2 - 17.1 g/dL [facility] HEMATOCRIT 39.4 38.5 - 50.0 % [facility] MCV 97.8 80.0 - 100.0 fL [facility] MCH 31.5 27.0 - 33.0 pg [facility] MCHC 32.2 32.0 - 36.0 g/dL [facility] Comment: For adults, a slight decrease in the calculated MCHC value (in the range of 30 to 32 g/dL) is most likely not clinically significant; however, it should be interpreted with caution in correlation with other red cell parameters and the patient's clinical condition. RDW 14.1 11.0 - 15.0 % [facility] PLATELETS 94(L) 140 - 400 Thousand/u L [facility] MPV 13.1(H) 7.5 - 12.5 fL [facility] NEUTROPHIL ABSOLUTE 3,303 1,500 - 7,800 cells/uL [facility] LYMPHOCYTE ABSOLUTE 704(L) 850 - 3,900 cells/uL [facility] MONOCYTE ABSOLUTE 382 200 - 950 cells/uL [facility] EOSINOPHIL ABSOLUTE 193 15 - 500 cells/uL [facility] BASOPHILS ABSOLUTE 18 0 - 200 cells/uL [facility] NEUTROPHIL 71.8 % [facility] LYMPHOCYTES 15.3 % [facility] MONOCYTE 8.3 % [facility] EOSINOPHILS 4.2 % [facility] BASOPHILS 0.4 % [facility] Comment: Test Performed at: [facility] [address] [address] Rodger Almaguer MD Blood 02/21/2025 9:03 AM CDT 02/22/2025 7:57 AM CDT November INPUT OUTPUT CLERK HEMATOLOGY ORDERABLES Final Resu lt [facility] [phone] [email or web address] [address] [place] [address] * (ABNORMAL) COMPREHENSIVE METABOLIC PANEL (02/21/2025 9:03 AM CDT) GLUCOSE 63(L) 65 - 99 mg/dL [facility] Comment: Fasting reference interval BUN 42(H) 7 - 25 mg/dL [facility] CREATININE 1.94(H) 0.70 - 1.28 mg/dL [facility] GFR 36(L) > OR = 60 mL/min/1.7 3m2 [facility] BUN/CREAT RATIO 22 6 - 22 (calc) [facility] SODIUM 138 135 - 146 mmol/L [facility] POTASSIUM 4.4 3.5 - 5.3 mmol/L [facility] CHLORIDE 101 98 - 110 mmol/L [facility] CO2 29 20 - 32 mmol/L [facility] CALCIUM 9.4 8.6 - 10.3 mg/dL [facility] TOTAL PROTEIN 7.9 6.1 - 8.1 g/dL [facility] ALBUMIN 3.9 3.6 - 5.1 g/dL [facility] GLOBULIN 4.0(H) 1.9 - 3.7 g/dL (calc) [facility] ALBUMIN/GLOBULIN RATIO 1.0 1.0 - 2.5 (calc) [facility] BILIRUBIN TOTAL 0.9 0.2 - 1.2 mg/dL [facility] ALKALINE PHOSPHATASE 145(H) 35 - 144 U/L [facility] AST 26 10 - 35 U/L [facility] ALT 16 9 - 46 U/L [facility] Comment: Test Performed at: [facility] [address] [place] [address] Rodger Almaguer MD Blood 02/21/2025 9:03 AM CDT 02/22/2025 7:57 AM CDT us November Mock INPUT OUTPUT CLERK CHEMISTRY ORDERABLES Final Resul t [facility] [phone] [facility] [address] [address] * BASIC METABOLIC PANEL (02/16/2025 1:06 PM CDT) Blood us Abstract Provider CHEMISTRY ORDERABLES Final Res ult * HEMOGLOBIN A1C (02/14/2025) ABSTRACTED HGB A1C 6.7 % Blood 02/14/2025 us Abstract Provider CHEMISTRY ORDERABLES Final Res ult * HM DIABETES FOOT EXAM (11/11/2024 8:45 AM CDT) us Abstract Provider HEALTH MAINTENANCE Final Resul t * CT ABDOMEN PELVIS WO CONTRAST (10/11/2024 2:51 PM AWNING FRAME MAKER) Anatomical Region Laterality Modality Abdomen Computed Tomogra phy 10/11/2024 2:42 PM AWNING FRAME MAKER Impressions 10/11/2024 3:49 PM AWNING FRAME MAKER IMPRESSION: Please see below. Exam: CT ABDOMEN [...] (ABNORMAL) DIABETES EYE EXAM (09/01/2024 9:56 AM AWNING FRAME MAKER) Abstract Provider HEALTH MAINTENANCE Edited Resu lt - Final * (ABNORMAL) MICROALBUMIN/CREATININE RATIO, RANDOM UR (08/16/2024 11:21 AM AWNING FRAME MAKER) Creatinine, Urine 24 20 - 320 mg/dL [facility] MICROALBUMIN, URINE 1.0 See Note: mg/dL [facility] Comment: Reference Range: Reference Range Not established MICROALBUMIN/CREAT RATIO, UR 42(H) <30 mg/g creat [facility] Comment: The ADA defines abnormalities in albumin excretion as follows: Albuminuria Category Result (mg/g creatinine) Normal to Mildly increased <30 Moderately increased 30-299 Severely increased > OR = 300 The ADA recommends that at least two of three specimens collected within a 3-6 month period be abnormal before considering a patient to be within a diagnostic category. Test Performed at: [facility] [address] [facility] [place] [address] Rodger Almaguer MD Urine URINE SPECIMEN OBTAINED BY CLEAN CATCH PROCEDURE / Unknown 08/16/2024 11:21 AM AWNING FRAME MAKER 08/17/2024 3:55 AM AWNING FRAME MAKER us Jose Horn INPUT OUTPUT CLERK URINE ORDERABLES Final Res ult [facility] [phone] [facility] [address] [facility] [place] [address] * (ABNORMAL) LIPID PANEL (07/02/2024 12:07 PM AWNING FRAME MAKER) CHOLESTEROL 105 <200 mg/dL [facility] HDL 35(L) > OR = 40 mg/dL [facility] TRIGLYCERIDE 73 <150 mg/dL [facility] LDL CALCULATED 55 mg/dL (calc) [facility] Comment: Reference range: <100 Desirable range <100 mg/dL for primary prevention; <70 mg/dL for patients with CHD or diabetic patients with > or = 2 CHD risk factors. LDL-C is now calculated using the Álvaro calculation, which is a validated novel method providing better accuracy than the Friedewald equation in the estimation of LDL-C. Jarad SS et al. BRENNA. 2013;310(19): 2808-4299 (http://education.LocoX.com/faq/ETW052) CHOL/HDL RATIO 3.0 <5.0 (calc) [facility] NON-HDL CHOLESTEROL 70 <130 mg/dL (calc) [facility] Comment: For patients with diabetes plus 1 major ASCVD risk factor, treating to a non-HDL-C goal of <100 mg/dL (LDL-C of <70 mg/dL) is considered a therapeutic option. Test Performed at: [facility] [address] [address] Rodger Almaguer MD Blood 07/02/2024 12:0 7 PM AWNING FRAME MAKER 07/03/2024 4:37 AM AWNING FRAME MAKER Jacobvenkateshmarnie Horn INPUT OUTPUT CLERK CHEMISTRY ORDERABLES Final Result [facility] [phone] [facility] [address] [phone] from Last 3 Months or Most Recently Relevant to Health Maintenance Insurance [place]ID [place] [facility] DUAL COMPLETE [facility] [id number] Advance Directives For more information, please contact: [phone] * Full Code (Latest Code Status on File) Date Activated Date Inactivated Comments 11/16/2024 10:48 AM 11/20/2024 2:45 PM * Full Code Date Activated Date Inactivated Comments 10/11/2024 7:14 PM 10/14/2024 12:16 PM * Full Code Date Activated Date Inactivated Comments 05/27/2024 3:54 AM 05/31/2024 6:49 PM * Full Code Date Activated Date Inactivated Comments 03/22/2024 2:11 PM 03/23/2024 2:25 PM Care Teams Citrix Engineer Relationship Specialty Start Date End Date Rosita Carpio DO [address] [place] [address] PCP - General Family Practice 06/05/23
--- OUTSIDE RECORDS SUMMARY | 2025-04-28 10:48 | XMS_ITS | Encounter Summary ---
Author Organization [facility] Address [address] [place] [address] Care Team Providers Care Fabric Coating Supervisor Name Role Phone Rosita Carpio DO Primary Care Provider [phone] Reason for Visit * Reason Onset Date Comments Needs Appointment 06/04/2024 Encounter Details Date Type Department Care Team (Late st Contact Info) Description 06/04/2024 Telephone [facility] [address] [facility] [address] [place] [address] Kirit Perez MD [address] [place] [address] KAMILLE Fried Needs Appointment Social History Tobacco [...] schedule appt for pt, please advise Cardiology Still Operator Gin: Ama Henriquez documented in this encounter Plan of Treatment Upcoming Encounters Date Type Department Care Team (Late st Contact Info) Description 05/04/2025 8:40 AM CDT Office Visit [facility] [address] [facility] [place] [place] [address] Rosita Carpio DO [address] [place] [address] 05/24/2025 9:00 AM CDT Office Visit [facility] [address] [place] [address] Mock Roberta, [facility] [address] [place] [address] 07/08/2025 10:20 AM CONSUMER SAFETY OFFICER Office Visit [facility] [address] [place] [address] Jose Horn, [facility] [address] [place] [address] documented as of this encounter Visit Diagnoses Not on filedocumented in this encounter Additional Health Concerns Infection Onset Date Last Indicated Resolved Time R/O C. diff 10/12/2024 10/12/2024 10/12/2024 5:09 PM CONSUMER SAFETY OFFICER R/O C. diff 10/12/2024 10/12/2024 10/13/2024 5:30 PM CONSUMER SAFETY OFFICER documented as of this encounter Care Teams Fabric Coating Supervisor Relationship Specialty Start Date End Date Rosita Carpio DO [address] [place] [address] PCP - General Family Practice 06/05/23 documented as of this encounter
--- OUTSIDE RECORDS SUMMARY | 2025-04-28 10:48 | XMS_ITS | Encounter Summary ---
Author Organization [facility] Address [address] [place] [address] Care Team Providers Care Academic Hospitalist Name Role Phone Rosita Carpio DO Primary Care Provider [phone] Encounter Details Date Type Department Care Team (Late Contact Info) Description 03/28/2025 Results Follow-Up [facility] [address] [place] [address] [facility] [address] [place] [address] COLON CANCER SCREEN, STOOL DNA Social History Tobacco Use Types Packs/Day Years [...] Encounters Date Type Department Care Team (Late Contact Info) Description 05/04/2025 8:40 AM CDT Office Visit [facility] [address] [place] [facility] [address] Rosita Carpio, DO [address] [place] [facility] [address] 05/24/2025 9:00 AM CDT Office Visit [facility] [address] [place] [facility] [place] [address] Emili Roberta, [facility] [address] [place] [facility] [address] 07/08/2025 10:20 AM AUTOMOTIVE GENERAL SALES MANAGER Office Visit [facility] [address] [place] [facility] [place] [address] HornJacobvenkateshmarnie Glover, [facility] [address] [place] [address] documented as of this encounter Visit Diagnoses Not on filedocumented in this encounter Additional Health Concerns Assessment Noted Time PHQ-9 Depression Total Score: 1 12/07/19 25 8:39 AM CDT documented as of this encounter Care Teams Academic Hospitalist Relationship Specialty Start Date End Date Rosita Carpio DO [address] [place] [address] PCP - General Family Practice 06/05/23 documented as of this encounter
--- OUTSIDE RECORDS SUMMARY | 2025-04-28 10:48 | XMS_ITS | Encounter Summary ---
Author Organization [facility] Address [address] [place] [address] Care Team Providers Care Coal Chemist Name Role Phone Rosita Carpio DO Primary Care Provider [phone] Encounter Details Date Type Department Care Team (Late st Contact Info) Description 04/27/2025 External Device Data [place] ABSTRACTION Provider, Abstract NO ADDRESS ON FILE Social History Tobacco Use Types Packs/Day Years [...] Description 05/04/2025 8:40 AM CDT Office Visit [facility] [place] [address] [facility] [place] [phone] Rosita Carpio DO [address] [place] [facility] [phone] 05/24/2025 9:00 AM CDT Office Visit [facility] [address] [place] [id number] Emili November, [facility] [address] [place] [address] 07/08/2025 10:20 AM FIELD INTERVIEWER Office Visit [facility] [address] [facility] [place] [phone] Jacob Hornvenkateshmarnie Adalberto, [facility] [address] [place] [phone] documented as of this encounter Visit Diagnoses Not on filedocumented in this encounter Additional Health Concerns Assessment Noted Time PHQ-9 Depression Total Score: 1 12/07/19 25 8:39 AM CDT documented as of this encounter Care Teams Coal Chemist Relationship Specialty Start Date End Date Rosita Carpio DO [address] [place] [address] PCP - General Family Practice 06/05/23 documented as of this encounter
--- NOTE | 2025-04-28 10:59 | W.ED.EXTPRO ---
HPI - Extremity Problem General: Chief complaint: Extremity Problem,Nontraumatic Stated complaint: from hips down swollen Time Seen by Provider: 04/28/25 10:41 History of Present Illness: 74-year-old male presents emergency room complaining of swelling in his legs bilaterally. He has noticed its increase. He is usually on Bumex 2 mg twice a day. He has been taking but does not feel like it has been helping much. He said increasing shortness of breath with exertion and orthopnea. Associated symptoms: Deny chest pain, fever(s) or rash Related Data Home Medications ?Medication ?Instructions ?Recorded ?Confirmed aspirin 81 mg tablet,delayed 81 mg PO DAILY 02/26/24 04/28/25 release atorvastatin 40 mg tablet 40 mg PO DAILY 02/26/24 04/28/25 bumetanide 2 mg tablet 2 mg PO BID 02/26/24 04/28/25 dapagliflozin propanediol 10 mg 10 mg PO DAILY 02/26/24 04/28/25 tablet (Farxiga) escitalopram oxalate 10 mg tablet 10 mg PO DAILY 02/26/24 04/28/25 lisinopril 5 mg tablet 5 mg PO DAILY 02/26/24 04/28/25 potassium chloride 20 mEq/15 mL 20 meq PO BID 02/26/24 04/28/25 oral liquid glimepiride 2 mg tablet 2 mg PO DAILY 09/07/24 04/28/25 tamsulosin 0.4 mg capsule (Flomax) 0.4 mg PO QPM 09/07/24 04/28/25 dulaglutide 0.75 mg/0.5 mL 0.75 mg SUBCUT Q7D 01/24/25 04/28/25 subcutaneous [facility] magnesium glycinate 100 mg PO BEDTIME 04/28/25 04/28/25 Previous Rx's ?Medication ?Instructions ?Recorded diabteic shoes w/ 3 inserts #1 ea 02/19/24 Custom Molded Orthotics #1 ea 10/01/24 diabetic shoes with 3 custom #1 ea 11/11/24 inserts mupirocin 2 % topical ointment 1 applic topical BID #15 grams 04/21/25 (Centany) bumetanide 2 mg tablet 4 mg (2 x 2 mg) PO BID #14 tabs 04/28/25 Allergies Allergy/AdvReac Type Severity Reaction Status Date / Time Penicillins Allergy Unknown Verified 04/28/25 10:52 Review of Systems Const: Denies: fever(s) or chills Card: Denies: chest pain Resp: Denies: dyspnea GI: Denies: abdominal pain : Denies: dysuria, urinary frequency or urinary urgency Musc: Denies: neck pain or back pain Skin/Breast: Denies: rash PFSH ED PFSH: Medical History Paroxysmal A-fib Presence of Watchman left atrial appendage closure device CAD (coronary artery disease) Thrombocytopenia Dystrophia unguium Peripheral neuropathy Ulcer of right foot with fat layer exposed Diabetic infection of right foot Type 2 diabetes mellitus Social History Smoking and tobacco/nicotine status: tobacco/nicotine user, details unknown Physical Exam Const: COMMON NORMALS: no acute distress GENERAL APPEARANCE: cooperative and comfortable ORIENTATION/CONSCIOUSNESS: Yes awake, Yes oriented to person, Yes oriented to place and Yes oriented to time HENMT: COMMON NORMALS: normocephalic, atraumatic and hearing grossly normal bilaterally HEAD & SCALP: normocephalic and atraumatic Resp: COMMON NORMALS: normal respiratory effort, No retractions, No use of accessory muscles and clear to auscultation bilaterally AUSCULTATION: clear to auscultation bilaterally Cardio: COMMON NORMALS: regular rate, regular rhythm and No murmurs present (Cardio) RATE: regular rate RHYTHM: regular rhythm GI: COMMON NORMALS: Soft to palpation and No hepatosplenomegaly present AUSCULTATION: Yes normoactive bowel sounds PALPATION: Yes Soft to palpation, No Tenderness to palpation present (GI), No Guarding due to palpation present (GI) and Yes No hepatosplenomegaly present Extremity: COMMON NORMALS: normal to inspection, capillary refill normal, no clubbing, cyanosis or edema, no calf tenderness and no pedal edema Neuro: SENSORIUM/ORIENTATION: Yes oriented to person, Yes oriented to place and Yes oriented to time Skin: COMMON NORMALS: no rashes or lesions noted GENERAL SKIN EXAM: no rashes or lesions noted Course Vital Signs: Vital signs: Vital Signs Temperature 97.5 F L 04/28/25 10:42 Pulse Rate 60 04/28/25 11:22 Respiratory Rate 20 H 04/28/25 11:22 Blood Pressure 126/75 04/28/25 11:22 Pulse Oximetry 95 04/28/25 11:22 Oxygen Delivery Me thod Room Air 04/28/25 11:22 MDM - Extremity (Nontraumatic) Medical Decision Making Patient did have some improvement after getting IV Bumex. Will discharge home on Bumex at 4 mg twice a day for the next 4 days. Increase his potassium supplement he has an appointment next week with his primary care provider. Return if he has further problems or worsening symptoms particularly if he has onset of orthopnea. Medical Records I reviewed the patient's medical records. Lab Data I reviewed the patient's lab results. 04/28/25 11:02 04/28/25 11:23 Radiology Impressions Chest X-Ray 04/28/25 10:41 IMPRESSION: Cardiomegaly and pulmonary venous hypertension without acute abnormality. Laboratory Results WBC 5.06 10^3/uL (3.29-11.43) 04/28/25 11:02 RBC 3.91 10^6/uL (3.85-5.65) 04/28/25 11:02 Hgb 11.80 g/dL (11.27-16.99) 04/28/25 11:02 Hct 36.4 % (37-53) L 04/28/25 11:02 MCV 93.1 fl (82-101) 04/28/25 11:02 MCH 30.2 pg (27-33) 04/28/25 11:02 MCHC 32.4 g/dL (30-55) 04/28/25 11:02 RDW 14.9 % (12.1-15.1) 04/28/25 11:02 Plt Count 72 10^3/cmm (157-399) L 04/28/25 11:02 MPV 12.9 fL (7.4-10.4) H 04/28/25 11:02 Neut % (Auto) 73.8 % 04/28/25 11:02 Lymph % (Auto) 11.5 % 04/28/25 11:02 Metcalfe % (Auto) 11.1 % 04/28/25 11:02 Eos % (Auto) 2.4 % 04/28/25 11:02 Baso % (Auto) 1.0 % 04/28/25 11:02 Neut # (Auto) 3.74 10^3/uL (1.8-7.7) 04/28/25 11:02 Lymph # (Auto) 0.6 10^3/uL (0.8-4.8) L 04/28/25 11:02 Metcalfe # (Auto) 0.6 10^3/uL (0.2-0.9) 04/28/25 11:02 Eos # (Auto) 0.1 10^3/uL (0.0-0.8) 04/28/25 11:02 Baso # (Auto) 0.1 10^3/uL (0.0-0.1) 04/28/25 11:02 Nucleated RBC % (auto) 0 % 04/28/25 11:02 Nucleated RBCs # 0.0 /100WBC 04/28/25 11:02 Sodium 138 mmol/L (136-145) 04/28/25 11:23 Potassium 4.2 mmol/L (3.5-5.1) 04/28/25 11:23 Chloride 101 mmol/L (98-107) 04/28/25 11:23 Carbon Dioxide 25 mmol/L (22-29) 04/28/25 11:23 Anion Gap 16.2 (5-19) 04/28/25 11:23 BUN 34 mg/dL (8-23) H 04/28/25 11:23 Creatinine 1.5 mg/dL (0.7-1.2) H 04/28/25 11:23 GFR Calculation Not Reportable 04/28/25 11:23 Glucose 125 mg/dL (65-115) H 04/28/25 11:23 Calculated Osmolality 295 mOsm/kg (285-295) 04/28/25 11:23 Calcium 8.8 mg/dL (8.5-10.5) 04/28/25 11:23 Total Bilirubin 1.2 mg/dL (0.15-1.2) 04/28/25 11:23 AST 23 U/L (0-40) 04/28/25 11:23 ALT 13 U/L (0-41) 04/28/25 11:23 Alkaline Phosphatase 163 U/L (40-130) H 04/28/25 11:23 Total Protein 8.2 g/dL (6.6-8.7) 04/28/25 11:23 Albumin 4.0 g/dL (3.5-5.2) 04/28/25 11:23 Globulin 4.2 g/dL (1.3-4.6) 04/28/25 11:23 All radiology interpretation(s) finalized by discharge EKG Data EKG 1: Interpretation: 04/28/2025 A-fib with a slow ventricular response rate of 55. Right bundle branch block no acute changes. No EKG for comparison Discharge Plan Discharge Patient Disposition: Home Clinical Impression: Lower extremity edema Condition: Stable Prescriptions: New bumetanide 2 mg tablet 4 mg PO BID Qty: 14 0RF No Action (DME) diabteic shoes w/ 3 inserts See Rx Instructions .Route .MEDSUPPLY Qty: 1 0RF Rx Instructions: As directed by the faheem mendez glimepiride 2 mg tablet 2 mg PO DAILY tamsulosin [Flomax] 0.4 mg capsule 0.4 mg PO QPM (DME) diabetic shoes with 3 custom inserts See Rx Instructions .Route .MEDSUPPLY Qty: 1 0RF Rx Instructions: As directed to [facility] diabetes [facility] mupirocin [Centany] 2 % ointment 1 applic topical BID Qty: 15 2RF dapagliflozin propanediol [Farxiga] 10 mg tablet 10 mg PO DAILY escitalopram oxalate 10 mg tablet 10 mg PO DAILY bumetanide 2 mg tablet 2 mg PO BID lisinopril 5 mg tablet 5 mg PO DAILY atorvastatin 40 mg tablet 40 mg PO DAILY potassium chloride 20 mEq/15 mL liquid 20 meq PO BID aspirin 81 mg tablet,delayed release (DR/EC) 81 mg PO DAILY Trulicity 0.75 mg/0.5 mL pen injector 0.75 mg SUBCUT Q7D (DME) Custom Molded Orthotics See Rx Instructions .Route .MEDSUPPLY Qty: 1 0RF Rx Instructions: As directed [facility] [place] magnesium glycinate 100 mg magnesium Capsule 100 mg PO BEDTIME Discharge Orders: Discharge ED (Routine); Ordered 04/28/25 Ordered By: Felipe Holley Referrals: Mock,November, LEATH[facility] SOFTENER [Primary Care Provider, Nurse Practitioner] Discharge Diet: Usual diet Discharge Activity: Resume usual activity Patient Instructions: Opioid Safety, Pain Management, Patient Portal & Shahbaz Instructions Activity Restrictions/Additional Instructions: [facility]. It is very important that you follow up as instructed or that you return to the Emergency Department should you have concerns or if your condition changes or worsens in any way. Emergency department visits are focused on emergent conditions, in some cases you may require further evaluation on an outpatient basis. You were seen in the emergency room with complaints of increased swelling in her legs. Chest x-ray was normal. There is no sign of significantly decompensated heart failure recommend you increase your Bumex to 4 mg orally (2 tablets) twice a day for the next 4 days. You should follow-up with your doctor next week for repeat lab work and reevaluation. While you are on the increased dose of Bumex increase your potassium supplement to 20 mill equivalents 3 times a day (22-1/2 mL twice a day). (Please note that included in your discharge packet is information concerning opioid safety and pain management. This information is given to all patients were discharged from the ER regardless of their discharge diagnosis or the medicines they usually take or are prescribed.) Print Language: [place] Coding Level of Care Code ED Handbell Choir Director for Leeroy Vidales
[2025-04-28 11:09] LABS: Hematocrit 36.4 % (37-53); Hemoglobin 11.80 g/dL (11.27-16.99); Mean Corpuscular HGB Conc 32.4 g/dL (30-55); Mean Corpuscular Hemoglobin 30.2 pg (27-33); Mean Corpuscular Volume 93.1 fl (82-101); Nucleated Red Blood Cells % 0 %; Platelet Count 72 10^3/cmm (157-399); Red Blood Count 3.91 10^6/uL (3.85-5.65); White Blood Count 5.06 10^3/uL (3.29-11.43)
[2025-04-28 11:22] VITALS: BP 126/75; PULSE 60; RESP 20; O2SAT 95
[2025-04-28] MEDS: bumetanide 0.25 mg/mL SDV 4 mL 2 MG IVP (11:37)
[2025-04-28 11:52] LABS: Alanine Aminotransferase 13 U/L (0-41); Albumin Level 4.0 g/dL (3.5-5.2); Alkaline Phosphatase 163 U/L (40-130); Anion Gap 16.2 (5-19); Aspartate Amino Transferase 23 U/L (0-40); Blood Urea Nitrogen 34 mg/dL (8-23); Calcium 8.8 mg/dL (8.5-10.5); Carbon Dioxide 25 mmol/L (22-29); Chloride 101 mmol/L (98-107); Creatinine Clr Calc Pharmacy 57.1981; Globulin 4.2 g/dL (1.3-4.6); Glucose 125 mg/dL (65-115); Osmolality Calculated 295 mOsm/kg (285-295); Potassium 4.2 mmol/L (3.5-5.1); Sodium 138 mmol/L (136-145); Total Protein 8.2 g/dL (6.6-8.7)
[2025-04-28 13:49] VITALS: BP 130/82; PULSE 56; O2SAT 96
== END 2025-04-28 13:51 | disposition home or self-care (01) ==
PROVIDERS: Emergency Provider Family Medicine
DX: R60.0 Localized edema (principal); Z79.82 Long term (current) use of aspirin; Z79.85 Long-term (current) use of injectable non-insulin antidiabetic drugs; I25.10 Atherosclerotic heart disease of native coronary artery without angina pectoris; E11.621 Type 2 diabetes mellitus with foot ulcer; L97.512 Non-pressure chronic ulcer of other part of right foot with fat layer exposed
CPT/HCPCS: 36415; 71045; 80053; 85025; 93005; 96374; 99285; J3490

== ENCOUNTER → 2025-05-10 09:17 | Outpatient (BNVA) | payer OTHER, MEDICAID, SELFPAY | PROVIDERS: Visit Provider Podiatrist Foot & Ankle Surgery | DX: E11.42 Type 2 diabetes mellitus with diabetic polyneuropathy (principal); L60.3 Nail dystrophy; L84 Corns and callosities; G62.9 Polyneuropathy, unspecified; E11.621 Type 2 diabetes mellitus with foot ulcer; L97.512 Non-pressure chronic ulcer of other part of right foot with fat layer exposed | CPT/HCPCS: 99213 ==

== ENCOUNTER → 2025-06-07 09:56 | Outpatient (BNVA) | payer OTHER, MEDICAID, SELFPAY | PROVIDERS: Visit Provider Podiatrist Foot & Ankle Surgery | DX: E11.42 Type 2 diabetes mellitus with diabetic polyneuropathy (principal); L60.3 Nail dystrophy; L84 Corns and callosities; G62.9 Polyneuropathy, unspecified; E11.621 Type 2 diabetes mellitus with foot ulcer; L97.512 Non-pressure chronic ulcer of other part of right foot with fat layer exposed | CPT/HCPCS: 99213 ==

== ENCOUNTER 2025-06-13 09:00 | Inpatient (IN) | payer MEDICARE, MEDICAID, SELFPAY ==
--- OUTSIDE RECORDS SUMMARY | 2024-08-25 03:00 | XMS_ITS ---
Author Organization [facility] Address [address] [facility] [place] [address] Care Team Providers Care Regulator Mechanic Name Role Phone CHASTITY PARKER Unavailable [phone] JCAINTO CRUM Unavailable [phone] REASON FOR VISIT Dorsal Slit Encounters Encounter Location Date Provider Diagnosis [facility] [address] [place] [address] 08/25/2024 JACINTO CRUM Plan Of Treatment No Information Progress Notes * Axel STRINGER EDOB: 2 (74 yo M)Acc No.[id number]:08/25/2024 Patient: Liliana EMANULEAxel Hyde Provider: Maya CRUM MD :1950 A ge:74 Y S ex:Male Date:08/25/2024 Address:[address] [place] [address] [address], [id number] * Billing Information: * Visit Code: * Procedure Codes: * Electronic signature of AUST IN MD SKYLA on 06/13/2025 at 09:10 AM DIRECTOR OF EMAIL MARKETING Sign off status: Pending * Provider: Maya CRUM MD Date: 0 08/25/2024 Generated for Tessie power/Stuart/Mkitting on: 08/13/2024 09:10 AM DIRECTOR OF EMAIL MARKETING
--- OUTSIDE RECORDS SUMMARY | 2024-09-27 11:15 | XMS_ITS ---
Author Organization [facility] Address [address] [place] [address] Care Team Providers Care Clinical Training Specialist Name Role Phone CHASTITY PARKER Unavailable [phone] JACINTO CRUM Unavailable [phone] REASON FOR VISIT 4 wk postop Encounters Encounter Location Date Provider Diagnosis [facility] [address] [facility] [place] [address] 09/27/2024 JACINTO CRUM Plan Of Treatment No Information Progress Notes * Axel STRINGER EDOB: 2 (74 yo M)Acc No.[id number]:09/27/2024 Patient: Liliana UMANAAxel Provider: Maya CRUM MD :1950 A ge:74 Y S ex:Male Date:09/27/2024 Address:[address] [place] [address] [address], [id number] Subjective: * Chief Complaints: * 1 . 4 wk postop. * Medical History: Objective: * Vitals: Assessment: Plan: * Treatment: * Billing Information: * Visit Code: * Procedure Codes: * Electronic signature of AUST IN MD SKYLA on 06/13/2025 at 09:11 AM HANDKERCHIEF MAKER Sign off status: Pending * Provider: Maya CRUM MD Date: 0 09/27/2024 Generated for Louiei ng/Famarisolg/eTransmitting on: 1 08/13/2024 09:11 AM HANDKERCHIEF MAKER
--- OUTSIDE RECORDS SUMMARY | 2025-03-28 11:00 | XMS_ITS ---
Author Organization [facility] Address [address] [facility] [place] [address] Care Team Providers Care Consumer Credit Counselor Name Role Phone CHASTITY PARKER Unavailable [phone] JACINTO CRUM Unavailable [phone] REASON FOR VISIT 6 mo w/ ua/pvr Encounters Encounter Location Date Provider Diagnosis [facility] [address] [facility] [place] [address] 03/28/2025 JACINTO CRUM Plan Of Treatment No Information Progress Notes * Axel STRINGER EDOB: 2 (74 yo M)Acc No.[id number]:03/28/2025 Progress Notes Patient: Axel ALFRED Provider: Maya CRUM MD :1950 A ge:74 Y S ex:Male Date:03/28/2025 Address:[address] [place] [address] [address], [id number] Subjective: * Chief Complaints: * 1 . 6 mo w/ ua/pvr. * Medical History: Objective: * Vitals: Assessment: Plan: * Treatment: * Billing Information: * Visit Code: * Procedure Codes: * Electronic signature of AUST IN MD SKYLA on 06/13/2025 at 09:10 AM SCIENTIFIC INFORMATICS PROJECT LEADER Sign off status: Pending * Provider: Maya CRUM MD Date: 0 03/28/2025 Generated for Printi ng/Famarisolg/eTransmitting on: 1 08/13/2024 09:10 AM SCIENTIFIC INFORMATICS PROJECT LEADER
[2025-06-13] VITALS (98 sets, daily range): BP systolic 83–154; BP diastolic 41–108; PULSE 51–80; RESP 15–27; TEMP 36.1–36.8; O2SAT 83–99; BMI 53.1; BMI 55.4
--- NOTE | 2025-06-13 09:00 | XR_ITS ---
WS: [id number] Portable AP supine chest, 06/13/2025 Clinical Data: dyspnea/cough Comparison: Portable chest, 04/28/2025 Findings: No nodules, masses or effusions are seen. The heart is enlarged. The pulmonary vascularity is not increased. No pneumonia or pneumothorax is seen. The aortic arch shows calcification. XR/XR chest 1V portable [id number] Impression: Cardiomegaly and atherosclerosis.
--- OUTSIDE RECORDS SUMMARY | 2025-06-13 09:11 | XMS_ITS | Clinical Summary ---
Author Organization [facility] 1 [address] [facility] Address [address] [facility] [place] [address] Phone Care Team Providers Care Globe Tester Name Role Phone Rosita Carpio DO Primary Care Provider [phone] Allergies Active Allergy Reactions Criticality Noted Date Comments Penicillins Swelling Low 06/05/2023 Medications aspirin (ECOTRIN EC) 81 mg Tablet, Delayed Release (E.C.)Indication s:Presence of Watchman left atrial appendage closure device,HFrEF (heart failure with reduced ejection fraction),Benign hypertension,His tory of heart attack,Permanent atrial fibrillation [...] once daily 100 Tablet 2 5 Active escitalopram oxalate (LEXAPRO) 10 mg tabletIndication s:Major depressive disorder with single episode, in full remission Take 1 Tablet (10 mg) by mouth daily. 100 Tablet 3 5 Active potassium CHLORIDE (K-DUR,KLOR-CON M20) 20 mEq Extended Release tabletIndication s:HFrEF (heart failure with reduced ejection fraction) Take 1 Tablet (20 mEq) by mouth 2 times daily. 180 Tablet 3 5 Active glimepiride (AMARYL) 2 mg tabletIndication s:Type 2 diabetes mellitus with other circulatory complication, without long-term current use of insulin Take 1 Tablet (2 mg) by mouth daily with breakfast. 100 Tablet 3 5 Active metoprolol succinate (TOPROL XL) 25 mg Extended Release 24 hour tablet Take 25 mg by mouth. Active dapagliflozin propanediol (Farxiga) 10 mg Tablet Take 1 Tablet (10 mg) by mouth daily. 90 Tablet 4 5 Active lisinopriL (PRINIVIL) 5 mg tabletIndication s:Essential hypertension Take 0.5 Tablets (2.5 mg) by mouth daily. 90 Tablet 1 5 Active bumetanide (BUMEX) 2 mg tablet Take 2 Tablets (4 mg) by mouth two times daily, 7 hours apart. 120 Tablet 5 Active dulaglutide (TRULICITY) 1.5 mg/0.5 mL injection Inject 0.5 mL (1.5 mg) by subcutaneous injection every 7 days. 6 mL 3 5 Active Active Problems Problem Noted Date [...] a watchman 27 mm device from lot #[id number] and 3 device measurement of the left [...] Encounters Date Type Department Care Team Description 05/06/2025 Results Follow-Up [facility] [address] [place] [id number] Rosita Carpio DO CBC WITH DIFFERENTIAL, COMPREHENSIVE METABOLIC PANEL, TSH, Additional followed-up results: 2 05/04/2025 8:40 AM CDT Office Visit [facility] [address] [place] [address] Rosita Carpio, DO Type 2 diabetes mellitus with stage 3a chronic kidney disease, without long-term current use of insulin ([facility]) (Primary Dx); Essential hypertension; Thrombocytopenia; Type 2 diabetes mellitus with other circulatory complication, without long-term current use of insulin ([facility]); Paroxysmal atrial fibrillation ([facility]); Chronic deep vein thrombosis (DVT) of both femoral veins ([facility]); HFrEF (heart failure with reduced ejection fraction) ([facility]); Morbid obesity with BMI of 50.0-59.9, adult ([facility]); ASHD (arteriosclerotic heart disease); Frail elderly; Gastroesophageal reflux disease without esophagitis; Idiopathic chronic gout of multiple sites without tophus; Lymphedema of both lower extremities; Obstructive sleep apnea syndrome; Presence of Watchman left atrial appendage closure device; Benign prostatic hyperplasia with urinary frequency; Major depressive disorder with single episode, in full remission; Primary thrombocytopenia ([facility]) 04/27/2025 External Device Data STL ABSTRACTION Provider, Abstract 04/01/2025 Telephone [facility] [address] [place] [address] Roberta Mock FNP Provider Call 03/30/2025 External Device Data STL ABSTRACTION Provider, Abstract 03/28/2025 Results Follow-Up [facility] [address] [place] [address] Jose Horn FNP COLON CANCER SCREEN, STOOL DNA 03/22/2025 External [...] Sign Reading Time Taken Comments Blood Pressure 90/60 05/04/2025 8:53 AM CDT Pulse 58 05/04/2025 8:53 AM CDT Temperature 36.4 C (97.6 F) 05/04/2025 8:53 AM CDT Respiratory Rate 18 05/04/2025 8:5 3 AM CDT Oxygen Saturation 92% 05/04/2025 8:53 AM CDT Inhaled Oxygen Concentration - - Weight 142.3 kg (313 lb 12.8 oz) 05/04/2025 8:53 AM CDT Height 160 cm (5' 3 ) 05/04/2025 8:53 AM CDT Body Mass Index 55.59 05/04/2025 8:53 AM CDT Plan of Treatment Upcoming Encounters Date Type Department Care Team (Late st Contact Info) Description 07/08/2025 10:20 AM POLICE WORKER Office Visit [facility] [place] [address] [place] [phone] Jose Horn, PRINTING PRESS OPERATOR APPRENTICE [address] [place] [address] Health Maintenance Due Date Last Done Comments DTAP/TDAP/TD VACCINES (1 - Tdap) 1970 PNEUMOCOCCAL VACCINE 50+ YEA RS (1 of 2 - PCV) 1970 COLORECTAL SCREENING 1996 FIT/FOBT Q 1 year 1996 Flex Sig/CT Colonography Q 5 years 1996 RSV VACCINE (60+ or ) (1 - Risk 50-74 years 1-dose series) 2001 ZOSTER VACCINE (1 of 2) 2001 Medicare Advantage ([place]) Preventative Visit/Annual Wellness Visit 08/11/2024 07/02/2024, 06/19/2023 INFLUENZA VACCINE (#1) 2025 Traditional Medicare (ACO) A nnual Wellness Visit 07/03/2025 07/02/2024, 06/19/2023 DIABETES MICROALBUMIN ANNUAL SCREEN 08/16/2025 08/16/2024, 09/23/2023, 06/05/2023 DIABETES ANNUAL RETINAL EXAM 09/01/2025, 09/01/2024, 05/13/2019 DIABETES HBA1C Q 6 MONTHS 11/01/20252024, 02/14/2025, 09/15/2024, Additional history exists DIABETES ANNUAL FOOT EXAM 11/11/2025 11/11/2024, DIABETES: A1C (Auto Order) 05/04/202605/04, 02/14/2025, 09/15/2024, Additional history exists LDL CHOLESTEROL ANNUAL 05/04/2026 , 07/02/2024, 01/12/2024, Additional history exists Colorectal Cancer Screening 03/18/2028 FIT-DNA Q 3 years 03/18/2028 03/18/2025 [facility] uACR (Auto Order) Completed 08/16/2024 , 09/23/2023, 06/05/2023 Abdominal Aortic Aneurysm (A AA) Screening Completed 10/11/2024, 05/26/2024 [facility] eGFR (Auto Order) Completed 05/04/2025 , 02/21/2025, 02/16/2025, Additional history exists Procedures Procedure Name Priority Date/Time Associated Diagnosis Comments LIPID PANEL Routine 05/04/2025 12:00 AM CDT Type 2 diabetes mellitus with stage 3a chronic kidney disease, without long-term current use of insulin (CMS/HCC) Essential hypertension Thrombocytopenia Type 2 diabetes mellitus with other circulatory complication, without long-term current use of insulin ([facility]/HCC) Paroxysmal atrial fibrillation (CMS/HCC) HEMOGLOBIN A1C Routine 05/04/2025 12:00 AM CDT Type 2 diabetes mellitus with stage 3a chronic kidney disease, without long-term current use of insulin (CMS/HCC) Essential hypertension Thrombocytopenia Type 2 diabetes mellitus with other circulatory complication, without long-term current use of insulin (CMS/HCC) Paroxysmal atrial fibrillation (CMS/HCC) TSH Routine 05/04/2025 12:00 AM CDT Type 2 diabetes mellitus with stage 3a chronic kidney disease, without long-term current use of insulin (CMS/HCC) Essential hypertension Thrombocytopenia Type 2 diabetes mellitus with other circulatory complication, without long-term current use of insulin (CMS/HCC) Paroxysmal atrial fibrillation (CMS/HCC) COMPREHENSIVE METABOLIC PANEL Routine 05/04/2025 12:00 AM CDT Type 2 diabetes mellitus with stage 3a chronic kidney disease, without long-term current use of insulin (CMS/HCC) Essential hypertension Thrombocytopenia Type 2 diabetes mellitus with other circulatory complication, without long-term current use of insulin (CMS/HCC) Paroxysmal atrial fibrillation (CMS/HCC) CBC WITH DIFFERENTIAL Routine 05/04/2025 12:00 AM CDT Type 2 diabetes mellitus with stage 3a chronic kidney disease, without long-term current use of insulin (CMS/HCC) Essential hypertension Thrombocytopenia Type 2 diabetes mellitus with other circulatory complication, without long-term current use of insulin (CMS/HCC) Paroxysmal atrial fibrillation (CMS/HCC) COLON CANCER SCREEN, STOOL DNA Routine 03/18/2025 3:30 AM CDT Encounter for colorectal cancer screening DIABETES FOOT EXAM Routine 11/11/2024 8:[address] ABDOMEN PELVIS WO CONTRAST Stat 10/11/2024 2:51 PM POLICE WORKER DIABETES EYE EXAM Routine 09/01/2024 9:56 AM POLICE WORKER MICROALBUMIN/CREATINI NE RATIO, RANDOM UR Routine 08/16/2024 11:21 AM POLICE WORKER Type 2 diabetes mellitus with other circulatory complication, without long-term current use of insulin (CMS/HCC) from Last 3 Months or Most Recently Relevant to Health Maintenance Results * (ABNORMAL) CBC WITH DIFFERENTIAL (05/04/2025 12:00 AM CDT) WBC 5.3 3.8 - 10.8 Thousand/u L [facility] RBC 3.93(L) 4.20 - 5.80 Million/uL [facility] HEMOGLOBIN 12.2(L) 13.2 - 17.1 g/dL [facility] HEMATOCRIT 37.7(L) 38.5 - 50.0 % [facility] MCV 95.9 80.0 - 100.0 fL [facility] MCH 31.0 27.0 - 33.0 pg [facility] MCHC 32.4 32.0 - 36.0 g/dL [facility] Comment: For adults, a slight decrease in the calculated MCHC value (in the range of 30 to 32 g/dL) is most likely not clinically significant; however, it should be interpreted with caution in correlation with other red cell parameters and the patient's clinical condition. RDW 13.5 11.0 - 15.0 % [facility] PLATELETS 88(L) 140 - 400 Thousand/u L [facility] MPV 13.4(H) 7.5 - 12.5 fL [facility] NEUTROPHIL ABSOLUTE 3,795 1,500 - 7,800 cells/uL [facility] LYMPHOCYTE ABSOLUTE 678(L) 850 - 3,900 cells/uL [facility] MONOCYTE ABSOLUTE 583 200 - 950 cells/uL [facility] EOSINOPHIL ABSOLUTE 191 15 - 500 cells/uL [facility] BASOPHILS ABSOLUTE 53 0 - 200 cells/uL [facility] NEUTROPHIL 71.6 % [facility] LYMPHOCYTES 12.8 % [facility] MONOCYTE 11.0 % [facility] EOSINOPHILS 3.6 % [facility] BASOPHILS 1.0 % [facility] Comment: Test Performed at: [facility] [address] [address] Rodger Almaguer MD Blood 05/04/2025 05/05/2025 4:0 6 AM CDT Rosita Caitie Carpio DO HEMATOLOGY ORDERABLES Final Result Performing Organization Address City/[facility] Co de Phone Number [facility] [phone] [address] * TSH (05/04/2025 12:00 AM CDT) Pathologist [facility] TSH 2.86 0.40 - 4.50 mIU/L [facility] Comment: Test Performed at: [facility] [address] Rodger Almaguer MD Blood 05/04/2025 05/05/2025 4:0 6 AM CDT Rosita Carpio DO CHEMISTRY ORDERABLES Final Result Performing Organization Address [facility] Co de Phone Number [facility] [phone] [facility] [address] * (ABNORMAL) HEMOGLOBIN A1C (05/04/2025 12:00 AM CDT) HEMOGLOBIN A1C 6.2(H) <5.7 % [facility] Comment: For someone without known diabetes, a hemoglobin A1c value between 5.7% and 6.4% is consistent with prediabetes and should be confirmed with a follow-up test. For someone with known diabetes, a value <7% indicates that their diabetes is well controlled. A1c targets should be individualized based on duration of diabetes, age, comorbid conditions, and other considerations. This assay result is consistent with an increased risk of diabetes. Currently, no consensus exists regarding use of hemoglobin A1c for diagnosis of diabetes for children. ESTIMATED AVERAGE GLUCOSE (MG/DL) 131 mg/dL [facility] ESTIMATED AVERAGE GLUCOSE (MMOL/L) 7.3 mmol/L [facility] Comment: Test Performed at: [facility] [address] [facility] [place] [address] Rodger Amlaguer MD Blood 05/04/2025 05/05/2025 4:0 6 AM CDT Rosita Carpio DO CHEMISTRY ORDERABLES Final Result [facility] [phone] [facility] [place] [address] * (ABNORMAL) LIPID PANEL (05/04/2025 12:00 AM CDT) CHOLESTEROL 78 <200 mg/dL [facility] HDL 35(L) > OR = 40 mg/dL [facility] TRIGLYCERIDE 46 <150 mg/dL [facility] LDL CALCULATED 30 mg/dL (calc) [facility] Comment: Reference range: <100 Desirable range <100 mg/dL for primary prevention; <70 mg/dL for patients with CHD or diabetic patients with > or = 2 CHD risk factors. LDL-C is now calculated using the Jarad-Fraga calculation, which is a validated novel method providing better accuracy than the Friedewald equation in the estimation of LDL-C. Jarad PINTO et al. BRENNA. 2013;310(19): 4548-3314 (http://education.[employer]/faq/JOP392) CHOL/HDL RATIO 2.2 <5.0 (calc) [facility] NON-HDL CHOLESTEROL 43 <130 mg/dL (calc) [facility] Comment: For patients with diabetes plus 1 major ASCVD risk factor, treating to a non-HDL-C goal of <100 mg/dL (LDL-C of <70 mg/dL) is considered a therapeutic option. Test Performed at: [facility] [address] [place] [address] Rodger Almaguer MD Blood 05/04/2025 05/05/2025 4:0 6 AM CDT us Rosita Carpio DO CHEMISTRY ORDERABLES Final Result [facility] [phone] [facility] [address] [address] * (ABNORMAL) COMPREHENSIVE METABOLIC PANEL (05/04/2025 12:00 AM CDT) GLUCOSE 103(H) 65 - 99 mg/dL [facility] Comment: Fasting reference interval For someone without known diabetes, a glucose value between 100 and 125 mg/dL is consistent with prediabetes and should be confirmed with a follow-up test. BUN 38(H) 7 - 25 mg/dL [facility] CREATININE 1.70(H) 0.70 - 1.28 mg/dL [facility] GFR 42(L) > OR = 60 mL/min/1.7 3m2 [facility] BUN/CREAT RATIO 22 6 - 22 (calc) [facility] SODIUM 136 135 - 146 mmol/L [facility] POTASSIUM 4.3 3.5 - 5.3 mmol/L [facility] CHLORIDE 99 98 - 110 mmol/L [facility] CO2 28 20 - 32 mmol/L [facility] CALCIUM 8.8 8.6 - 10.3 mg/dL [facility] TOTAL PROTEIN 7.9 6.1 - 8.1 g/dL [facility] ALBUMIN 3.8 3.6 - 5.1 g/dL [facility] GLOBULIN 4.1(H) 1.9 - 3.7 g/dL (calc) [facility] ALBUMIN/GLOBULIN RATIO 0.9(L) 1.0 - 2.5 (calc) [facility] BILIRUBIN TOTAL 1.4(H) 0.2 - 1.2 mg/dL [facility] ALKALINE PHOSPHATASE 134 35 - 144 U/L [facility] AST 25 10 - 35 U/L [facility] ALT 13 9 - 46 U/L [facility] Comment: Test Performed at: [facility] [address] [address] Rodger Almaguer MD Blood 05/04/2025 05/05/2025 4:0 6 AM CDT Rosita Carpio DO CHEMISTRY ORDERABLES Final Result [facility] [phone] [facility] [address] [address] * COLON CANCER SCREEN, STOOL DNA (03/18/2025 3:30 AM CDT) COLOGUARD RESULT Negative Negative [facility] Comment: The Cologuard Plus (TM) test was performed on this specimen. NEGATIVE TEST RESULT. A negative (normal) Cologuard Plus result means the patient has a ebkz-sapn-vqkdyan chance of having colorectal cancer (CRC) or [...] a 91% specificity (Cologuard Plus Clinician Brochure. [employer]. [place], [place].). Visit www.[employer]/about/sjjbjpmk-zbjtgscrnox-xixrltmzcgb for more test information, references, warnings, and precautions. Stool STOOL SPECIMEN / Unknown 03/18/2025 3:30 AM CDT 03/19/2025 6:14 PM CDT Jose Horn PRINTING PRESS OPERATOR APPRENTICE BODY FLUIDS AND STOOLS Fin al Result [facility] CLIA # [id number] [address] , [address] [place] [address] * DIABETES FOOT EXAM (11/11/2024 8:45 AM CDT) Abstract Provider HEALTH MAINTENANCE Final Resul t * CT ABDOMEN PELVIS WO CONTRAST (10/11/2024 2:51 PM POLICE WORKER) Anatomical Region Laterality Modality Abdomen Computed Tomogra phy 10/11/2024 2:42 PM POLICE WORKER Impressions 10/11/2024 3:49 PM POLICE WORKER IMPRESSION: Please see below. Exam: CT ABDOMEN [...] (ABNORMAL) DIABETES EYE EXAM (09/01/2024 9:56 AM POLICE WORKER) Abstract Provider HEALTH MAINTENANCE Edited Resu lt - Final * (ABNORMAL) MICROALBUMIN/CREATININE RATIO, RANDOM UR (08/16/2024 11:21 AM POLICE WORKER) Creatinine, Urine 24 20 - 320 mg/dL [facility] MICROALBUMIN, URINE 1.0 See Note: mg/dL [facility] Comment: Reference Range: Reference Range Not established MICROALBUMIN/CREAT RATIO, UR 42(H) <30 mg/g creat [facility] Comment: The ADA defines abnormalities in albumin excretion as follows: Albuminuria Category Result (mg/g creatinine) Normal to Mildly increased <30 Moderately increased 30-299 Severely increased > OR = 300 The ADA recommends that at least two of three specimens collected within a 3-6 month period be abnormal before considering a patient to be within a diagnostic category. Test Performed at: [facility] [address] [facility] [place] [address] Rodger Almaguer MD Urine URINE SPECIMEN OBTAINED BY CLEAN CATCH PROCEDURE / Unknown 08/16/2024 11:21 AM POLICE WORKER 08/17/2024 3:55 AM POLICE WORKER Jose Horn PRINTING PRESS OPERATOR APPRENTICE URINE ORDERABLES Final Res ult [facility] [phone] [facility] [address] [facility] [place] [address] from Last 3 Months or Most Recently Relevant to Health Maintenance Insurance [place]ICAID [place] [facility] D[employer] COMPLETE HMO [facility] [id number] Advance Directives For more information, please contact: [phone] * Full Code (Latest Code Status on File) Date Activated Date Inactivated Comments 11/16/2024 10:48 AM 11/20/2024 2:45 PM * Full Code Date Activated Date Inactivated Comments 10/11/2024 7:14 PM 10/14/2024 12:16 PM * Full Code Date Activated Date Inactivated Comments 05/27/2024 3:54 AM 05/31/2024 6:49 PM * Full Code Date Activated Date Inactivated Comments 03/22/2024 2:11 PM 03/23/2024 2:25 PM Care Teams Globe Tester Relationship Specialty Start Date End Date Rosita Carpio DO [address] [place] [address] PCP - General Family Practice 06/05/23
--- OUTSIDE RECORDS SUMMARY | 2025-06-13 09:11 | XMS_ITS | Patient Health Record ---
Author Organization [facility] Address [address] [place] [address] Care Team Providers Care Knockup Worker Name Role Phone CHASTITY PARKER Unavailable [phone] CRUMJACINTO FLANAGAN Unavailable [phone] Allergies Allergen (clinical drug ingredient) Drug/Non Drug Allergy documented on EMR Reaction Allergy Type Onset Date Status Penicillin Unknown Drug Allergy Active Results Component Value Reference Range Notes Urinalysis, Routine Reviewed date:07/22/2024 09:48:44 AM Interpretation: Performing Lab: Notes/Report: Urine-Color yellow Appearance cloudy Glucose 3+ Bilirubin - Ketones - Specific [place] 1.015 Occult Blood 3+ pH 6.0 Urine Protein - Urobilinogen,Semi-Qn - Nitrite, Urine - WBC Esterase 1+ Basic Metabolic Panel Reviewed date:08/19/2024 09:30:41 AM Interpretation: Performing Lab: Notes/Report: Testing performed at [facility], [address] [place] [address] Dr. Avani Anderson, [place] [address]. CLIA ID#: [id number] W-eyeiwt-u-benzoquinone imine (NAPQI) is a metabolite of acetaminophen, [...] Equation(2020) to estimate GFR. Testing performed at: [address] [place] [address] CLIA ID [id number] Use of this assay is not recommended [...] Interpretation: Performing Lab: Notes/Report: Testing performed at: [address] [place] [address] CLIA ID [id number] WBC 4.4 4.5-11.0 X10'3 RBC 4.39 4.50-5.90 X10'6 Hgb 12.8 13.5-17.5 G/DL Hct 40.5 41.0-53.0 % MCV 92.3 80.0-100.0 FL MCH 29.2 27.0-31.0 PG MCHC 31.6 31.0-37.0 G/DL Platelet 63 150-400 X10'3 RDW-SD 54.2 35.0-49.0 FL RDW-CV 15.6 12.2-15.6 % MPV ---- 9.2-12.0 FL Neutro Auto% 68.5 40.0-70.0 % Lymph Auto% 17.3 22.0-44.0 % Ada Auto% 8.8 3.0-7.0 % Eos Auto% 4.5 2.0-4.0 % Baso Auto% 0.7 0.0-1.0 % Imm Gran% .2 .0-.4 % Neutro Abs 3.05 .80-7.70 Absolute Neutrophil Count 3050 Lymph Abs .77 .10-4.10 Ada Abs .39 .20-1.00 Eos Abs .20 .00-.40 Baso Abs .03 .00-.20 Imm Gran Abs .01 .00-.10 NRBC# .00 .00-.20 NRBC% .00 .00-.20 /100 int act WBC's Culture Urine Reviewed date:2024 08:24:43 AM Interpretation: Performing Lab: Notes/Report: Testing performed at: [address] [place] [address] CLIA ID [id number] Culture Urine AXEL Albert Culture Urine t: Culture Urine Culture Urine Accessio [id number] Culture Urine n: Culture Urine Microbiology Culture Urine PROCEDURE: Culture U rine [] Culture Urine SOURCE: Urine BODY SITE: Culture Urine COLLECTED DATE/TIME: 08/18/2024 16:00 [employer]ER RECEIVED DATE/TIME: 08/18/2024 17:55 [employer]ER Culture Urine START DATE/TIME: 08/18/2024 17:55 N[employer] TE[employer]ER FREE TEXT SOURCE: Culture Urine FINAL REPORT Culture Urine Final Report [] Culture Urine Verified Date/Time: 08/21/2024 07:39 NURS[employer]CHO[employer] TE[employer]ER Culture Urine > 10,000 cfu/ml mixe d superficial gareth Culture Urine Multiple microorgani sms present Culture Urine Probable contamination UA Reflex -- [id number] Reviewed date:08/19/2024 09:30:41 AM Interpretation: Performing Lab: Notes/Report: Testing performed at: [address] [place] [address] CLIA ID [id number] Color UA Yellow Clarity UA Clear Specific [...] 63 150-400 X10'3 Testing perfor med at: [address] [place] [address] CLIA ID [id number] Glucometer WBG Reviewed date:08/25/2024 03:14:35 PM Interpretation: Performing Lab: Notes/Report: Glucometer WBG 116 65-110 MG/DL Notify ~Notify RN~Meter: [id number]~Operato r: [id number] FREE CLEM Testing performed at: [address] [place] [address] CLIA ID [id number] Reason For Referral No Information Medications Medication [...] Status W/U Status Risk Notes Problem Phimosis (327140270) Phimosis (N47.1) Active confirmed Problem Benign prostatic hyperplasia (822632348) BPH (benign prostatic hyperplasia) (N40.0) Active confirmed Problem Urinary incontinence (936639048) Urinary incontinence (R32) Active confirmed Problem Type II diabetes mellitus without complication (646646545) Type 2 diabetes mellitus not at goal (E11.9) Active confirmed Problem Varicocele (37223460) Varicocele (I86.1) Active confirmed Problem Type II diabetes mellitus without complication (742079068) Diabetes (E11.9) Active confirmed Problem Disorder of penis (41279759) Penile edema (N48.89) Active confirmed Problem Benign prostatic hypertrophy with outflow obstruction (598795956) BPH loc w urin obs/LUTS (N40.1) Active confirmed Vital Signs Heart Rate 62 /min 08/18/2024 Blood pressure diastolic 81 mm Hg 07/22/2024 Height-cm 160.02 cm 09/27/2024 Weight-kg 127.91 kg 09/27/2024 Height 63 in 09/27/2024 Blood pressure systolic 132 mm Hg 07/22/2024 Weight 282 lbs 09/27/2024 BMI 49.95 kg/m2 09/27/2024 Procedures Procedure Date Ordered Date Performed Result Body Sit e Bladder Scan 07/22/2024 07/22/2024 N/A Encounters Encounter Location Date Provider Diagnosis [employer] [facility] [address] [address] 08/25/2024 JACINTO CRUM [employer] [facility] [address] [place] [address] 07/22/2024 CHASTITY PARKER Weak urinary stream R39.12 ; Uncircumcised male Z78.9 ; Urinary frequency R35.0 ; Urinary incontinence R32 ; UTI (urinary tract infection) N39.0 ; BPH loc w urin obs/LUTS N40.1 ; Varicocele I86.1 ; History of smoking Z87.891 ; Family history of prostate cancer Z80.42 and Type 2 diabetes mellitus not at goal E11.9 [employer], [facility] [address] [place] [address] 08/18/2024 CHASTITY PARKER Preoperative examination Z01.818 ; Phimosis N47.1 ; Uncircumcised male Z78.9 ; Weak urinary stream R39.12 ; Urinary frequency R35.0 ; Urinary incontinence R32 ; BPH loc w urin obs/LUTS N40.1 ; Varicocele I86.1 ; History of smoking Z87.891 ; Family history of prostate cancer Z80.42 and Type 2 diabetes mellitus not at goal E11.9 [employer], [facility] [address] [place] [address] 09/27/2024 JACINTO CRUM Phimosis N47.1 ; Uncircumcised male Z78.9 ; Weak urinary stream R39.12 ; Urinary frequency R35.0 ; Urinary incontinence R32 ; BPH loc w urin obs/LUTS N40.1 ; Varicocele I86.1 ; History of smoking Z87.891 ; Family history of prostate cancer Z80.42 and Type 2 diabetes mellitus not at goal E11.9 [facility], [facility] [address] [place] [address] 06/23/2024 CHASTITY PARKER Diabetes E11.9 [facility], [facility] [address] [place] [address] 07/20/2024 JACINTO CRUM [facility], [facility] [address] [place] [address] 07/27/2024 CHASTITY PARKER Gross hematuria R31. 0 and Pre-op exam Z01.818 [employer], [facility] [address] [place] [address] 01/24/2025 CHASTITY PARKER Assessments Encounter Date Diagnosis (ICD Code) Assessment Notes Treatment Notes Treatment Clinical Notes Section Notes 06/23/2024 Diabetes (ICD-10 - E11.9) 07/22/2024 Weak [...] Z78.9) 07/22/2024 Urinary frequency (ICD-10 - R35.0) 08/18/2024 Weak urinary stream (ICD-10 - R39.12) [...] UTI (urinary tract infection) (ICD-10 - N39.0) 08/18/2024 Urinary incontinence (ICD-10 - R32) 07/22/2024 [...] - N40.1) 07/22/2024 Varicocele (ICD-10 - I86.1) 07/22/2024 History of smoking (ICD-10 - Z87.891) [...] UA and PVR all questions answered 07/22/2024 Family history of prostate cancer (ICD-10 - Z80.42) 07/22/2024 Type 2 diabetes mellitus not at [...] mellitus not at goal (ICD-10 - E11.9) 07/22/2024 Other UA appears infected. He is [...] He is under care of Cardiology at [facility]. He is unsure of Dr. dumont [...] for dorsal slit, possible circumcision with Dr. Crum at [facility]. 08/18/2024 Other Patient schedul ed for dorsal slit on 08/25/[address] Crum at [facility]. How the procedure was performed was discussed along with risks/benefits/alt ernatives and postprocedural expectations. Patient takes daily ASA, understands to hold x 7 days prior to procedure. Denies problems with anesthesia in the past, he wears a BIPAP at night. No new medications or diagnoses since last visit. Patient has presurgical testing at [facility]. Urine sent for culture and we will [...] 07/27/2024 Hemoglobin A1c 06/23/2024 Electrocardiogram, 12 Lead Tracing-[id number] 07/27/2024 Insurance Providers Payer Name Payer Address Payer Phone Subscriber Number Group Number Insured Name Patient Relationship to Insured Coverage Start Date Coverage End Date [facility] Medicare Advantage HMO [address] [address] [place], [place] [id number] [facility] [id number] Brenden Axel Self - patient is the insured Medical (General) History Medical History History ICD Code diabetes depression HTN Heart disease ED Incontinence of urine H/O kidney stones Surgical History Surgery Date(Month/Year) appendectomy abdominal surgery watchman device cataracts 2018 dorsal slit Hospitalization History Reason Date(Month/Year) infection in legs 2023
--- OUTSIDE RECORDS SUMMARY | 2025-06-13 09:11 | XMS_ITS | Encounter Summary ---
Author Organization [facility], [facility] Address [address] [place] [address] Phone Care Team Providers Care Feather Separator Name Role Phone Rosita Carpio DO Primary Care Provider [phone] Encounter Details Date Type Department Care Team (Late st Contact Info) Description 06/09/2025 Orders Only [facility] [address] [place] [address] Teresa Hardwick MD [address] [place] [address] Chronic kidney disease, not otherwise specified Social History Tobacco Use [...] as of this encounter Plan of Treatment Not on file documented as of this encounter Visit Diagnoses Diagnosis Chronic kidney disease, not otherwise specified documented in this encounter Care Teams Feather Separator Relationship Specialty Start Date End Date Rosita Carpio DO [address] [place] [address] PCP - General Family Medicine 06/11/24 documented as of this encounter
--- OUTSIDE RECORDS SUMMARY | 2025-06-13 09:11 | XMS_ITS | Encounter Summary ---
Author Organization [facility], [facility] Address [address] [place] [address] Phone Care Team Providers Care Cab Supervisor Name Role Phone Rosita Carpio DO Primary Care Provider [phone] Encounter Details Date Type Department Care Team (Late st Contact Info) Description 06/11/2024 Orders Only [facility] [address] [place] [address] Neuropathy, not otherwise specified Social [...] specified documented in this encounter Care Teams Cab Supervisor Relationship Specialty Start Date End Date Rosita Carpio DO [address] [place] [phone] PCP - General Family Medicine 06/11/24 documented as of this encounter
--- OUTSIDE RECORDS SUMMARY | 2025-06-13 09:11 | XMS_ITS | Encounter Summary ---
Author Organization [facility] Address [address] [place] [address] Care Team Providers Care Photolith Operator Name Role Phone Rosita Carpio DO Primary Care Provider [phone] Reason for Visit * Reason Onset Date Comments Needs Appointment 06/04/2024 Encounter Details Date Type Department Care Team (Late st Contact Info) Description 06/04/2024 Telephone [facility] [address] [facility] [address] [place] [address] Kirit Perez MD [address] [place] [address] KAMILLE Fried Needs Appointment Social History Tobacco [...] encounter Miscellaneous Notes * Telephone Encounter - mAa Henriquez - 06/04/2024 9:51 AM CDT Chris (Provider) Caller: Nora Relation to Patient: daughter PHI (Y/N): y MESSAGE Caller is needing to schedule appt for pt, please advise Cardiology Supervisor Nutritional Yeast: Ama Henriquez documented in this encounter Plan of Treatment Upcoming Encounters Date Type Department Care Team (Late st Contact Info) Description 07/08/2025 10:20 AM CHEMIST INSTRUMENTATION Office Visit [facility] [address] [place] [address] Jose Horn, [facility] [address] [place] [address] documented as of this encounter Visit Diagnoses Not on filedocumented in this encounter Additional Health Concerns Infection Onset Date Last Indicated Resolved Time R/O C. diff 10/12/2024 10/12/2024 10/12/2024 5:09 PM CHEMIST INSTRUMENTATION R/O C. diff 10/12/2024 10/12/2024 10/13/2024 5:30 PM CHEMIST INSTRUMENTATION documented as of this encounter Care Teams Photolith Operator Relationship Specialty Start Date End Date Rosita Carpio DO [address] [place] [phone] PCP - General Family Practice 06/05/23 documented as of this encounter
--- OUTSIDE RECORDS SUMMARY | 2025-06-13 09:11 | XMS_ITS | Clinical Summary ---
Author Organization [facility], [facility] Address [address] [place] [address] Phone Care Team Providers Care Cell Operator Name Role Phone Rosita Carpio Primary Care Provider [phone] Allergies Active Allergy Reactions Criticality Noted Date [...] Active Active Problems No known active problems Encounters Date Type Department Care Team Description 06/09/2025 Orders Only [facility] [address] [place] [address] Teresa Hardwick MD Chronic kidney disease, not otherwise specified from Last 3 Months Family History Medical History Relation Comments Diabetes [...] 12/08/2024 1:05 PM CDT Plan of Treatment Health Maintenance Due Date Last Done Comments Pneumococcal Vaccine: 50+ Ye ars (1 of 2 - PCV) 1970 Colorectal Cancer Screening: Annual FOBT 2000 Colorectal Cancer Screening: Colonoscopy 2000 Colorectal Cancer Screening: Sigmoidoscopy 2000 Diabetes: Hemoglobin A1C 06/23/2024 09/22/2021 Diabetes: Ophthalmology Exam 06/23/2024 Diabetes: Pedal Pulse Checked 06/23/2024 Diabetes: Sensory Foot Exam 06/23/2024 Diabetes: Visual Foot Exam 06/23/2024 Influenza Vaccine (#1) 2025 Hepatitis B Vaccine Aged Out No longe r eligible based on patient's age to complete this topic Insurance Medicaid [place] ([id number]) UHC Medicare Care Teams Cell Operator Relationship Specialty Start Date End Date Rosita Carpio DO [address] [place] [facility] [phone] PCP - General Family Medicine 06/11/24
[2025-06-13 09:57] LABS: Hematocrit 37.2 % (37-53); Hemoglobin 12.00 g/dL (11.27-16.99); Mean Corpuscular HGB Conc 32.3 g/dL (30-55); Mean Corpuscular Hemoglobin 29.6 pg (27-33); Mean Corpuscular Volume 91.6 fl (82-101); Nucleated Red Blood Cells % 0 %; Platelet Count 93 10^3/cmm (157-399); Red Blood Count 4.06 10^6/uL (3.85-5.65); White Blood Count 24.54 10^3/uL (3.29-11.43)
[2025-06-13 10:07] LABS: ABG PCO2 32.8 mmHg (35-45); ABG PH Result 7.44 (7.35-7.45); Alveolar-Arterial Oxygen Gradi 6.9 mmHg (5-10); Arterial Blood Gas Hematocrit 37.0 % (42-52); Blood Gas Allen Test Pos; Blood Gas Operator Identificat AMH; Blood Gas Sample Site Radial, right; Blood Gas Sample Type Arterial; Carboxyhemoglobin 2.1 %THgb (0.4-20.1); Glucose Level-ABG 134.0 mg/dL (70-115); HCO3 ABG 22.1 mmol/L (22-26); Ionized Calcium Level - ABG 1.1 mmol/L (1.1-1.4); Methemoglobin 1.1 % (0.4-1.5); Oxygen Saturation ABG 90.2; PO2 ABG 57.2 mmHg (80.0-100.0); PO2 FiO2 Ratio Arterial Blood 272; Potassium Level - ABG 4.0 mmol/L (3.5-5.0); Sodium Level - ABG 135.0 mmol/L (131-143)
[2025-06-13 10:21] LABS: Alanine Aminotransferase 21 U/L (0-41); Albumin Level 3.5 g/dL (3.5-5.2); Alkaline Phosphatase 150 U/L (40-130); Anion Gap 19.0 (5-19); Aspartate Amino Transferase 62 U/L (0-40); Blood Urea Nitrogen 47 mg/dL (8-23); Calcium 8.5 mg/dL (8.5-10.5); Carbon Dioxide 22 mmol/L (22-29); Chloride 99 mmol/L (98-107); Creatinine Clr Calc Pharmacy 42.6965; Globulin 4.0 g/dL (1.3-4.6); Glucose 120 mg/dL (65-115); Osmolality Calculated 295 mOsm/kg (285-295); Potassium 4.0 mmol/L (3.5-5.1); Sodium 136 mmol/L (136-145); Total Protein 7.5 g/dL (6.6-8.7)
--- NOTE | 2025-06-13 10:56 | ED_ITS ---
HPI - Fall 2 General: Chief Complaint: Fall Stated Complaint: fall last night - weakness History of Present Illness: 74-year-old male presents emergency room after slipping out of his chair last night laying on the floor all night denies any pain anywhere. Denies chest pain or abdominal pain. No dysuria urgency or frequency. Associated symptoms-after fall: Denies abdominal pain, chest pain or neck pain Related Data Home Medications ?Medication ?Instructions ?Recorded ?Confirmed aspirin 81 mg tablet,delayed 81 mg PO DAILY 02/26/24 1 08/13/24 release atorvastatin 40 mg tablet 40 mg PO DAILY 02/26/2411/02 dapagliflozin propanediol 10 mg 10 mg PO DAILY 4 06/13/25 tablet (Farxiga) escitalopram oxalate 10 mg tablet 10 mg PO DAILY 02/2506/13/25 lisinopril 5 mg tablet 5 mg PO DAILY 02/26/2406/13 potassium chloride 20 mEq/15 mL 20 meq PO BID 02/26/24 06/13/25 oral liquid glimepiride 2 mg tablet 2 mg PO DAILY 09/07/2406/13 tamsulosin 0.4 mg capsule (Flomax) 0.4 mg PO QPM 09/0706/13/25 magnesium glycinate 100 mg PO BEDTIME 04/28/25 1 08/13/24 acidophilus 100 million 1 cap PO BID 06/13/25 cell-pectin, citrus 10 mg capsule dulaglutide 1.5 mg/0.5 mL 1.5 mg SUBCUT Q7D 06/13/25 1 08/13/24 subcutaneous [facility] Previous Rx's ?Medication ?Instructions ?Recorded diabteic shoes w/ 3 inserts #1 ea 02/19/24 Custom Molded Orthotics #1 ea 10/01/24 diabetic shoes with 3 custom #1 ea 11/11/24 inserts mupirocin 2 % topical ointment 1 applic topical BID #1 5 grams 04/21/25 (Centany) bumetanide 2 mg tablet 4 mg (2 x 2 mg) PO BID #14 t abs 04/28/25 Allergies Allergy/AdvReac Type Severity Reaction Status Date / Time Penicillins Allergy Unknown Verified 06/07/25 07:51 Review of Systems 2 Const: Reports: fatigue and malaise; Denies: fever(s) or chills Card: Denies: chest pain Resp: Denies: dyspnea GI: Denies: abdominal pain : Denies: dysuria, urinary frequency or urinary urgency Musc: Denies: neck pain or back pain Skin/Breast: Denies: rash PFSH ED 2 PFSH: Medical History Paroxysmal A-fib Presence of Watchman left atrial appendage closure device CAD (coronary artery disease) Thrombocytopenia Dystrophia unguium Peripheral neuropathy Ulcer of right foot with fat layer exposed Diabetic infection of right foot Type 2 diabetes mellitus Social History Smoking and tobacco/nicotine status: tobacco/nicotine user, details unknown Physical Exam 2 Const: GENERAL APPEARANCE: cooperative ORIENTATION/CONSCIOUSNESS: Yes awake, Yes oriented to person, Yes oriented to place and Yes oriented to time HENMT: COMMON NORMALS: normocephalic, atraumatic and hearing grossly normal bilaterally HEAD & SCALP: normocephalic and atraumatic Resp: COMMON NORMALS: normal respiratory effort, No retractions, No use of accessory muscles and clear to auscultation bilaterally AUSCULTATION: clear to auscultation bilaterally Cardio: COMMON NORMALS: regular rate, regular rhythm and No murmurs present (Cardio) RATE: regular rate RHYTHM: regular rhythm GI: COMMON NORMALS: Soft to palpation and No hepatosplenomegaly present A USCULTATION: Yes normoactive bowel sounds PALPATION: Yes Soft to palpation, No Tenderness to palpation present (GI), No Guarding due to palpation present (GI) and Yes No hepatosplenomegaly present Extremity: COMMON NORMALS: normal to inspection, capillary refill normal and no calf tenderness OTHER: 2+ edema lower extremities Neuro: SENSORIUM/ORIENTATION: Yes oriented to person, Yes oriented to place and Yes oriented to time Skin: COMMON NORMALS: no rashes or lesions noted GENERAL SKIN EXAM: no rashes or lesions noted Course 2 Vital Signs: Vital signs: Vital Signs Temperature 98.3 F 06/13/25 09:02 Pulse Rate 62 06/13/25 15:15 Respiratory Rate 18 06/13/25 15:15 Blood Pressure 101/58 06/13/25 15:15 Pulse Oximetry 91 06/13/25 15:15 Oxygen Delivery Me thod Room Air 06/13/25 09:02 MDM - Fall Medical Decision Making Rhabdomyolysis with acute kidney injury. Additionally patient is septic. Cultures have been done started on ceftriaxone. Discussed with hospitalist orders written has been given IV fluid bolus will admit to ICU. Urine is still pending Dr. Grayson will follow-up on this he is continue to receive fluids. We have given initial fluid bolus as well as initiation of IV antibiotics Medical Records I reviewed the patient's medical records. Lab Data I reviewed the patient's lab results. 06/13/25 09:26 06/13/25 09:26 Radiology Impressions Chest X-Ray 06/13/25 09:00 Impression: Cardiomegaly and atherosclerosis. Chest/Abdomen/Pelvis CT 06/13/25 13:04 IMPRESSION: Exam is somewhat limited without IV contrast. 1. Cardiomegaly. 2. No focal pneumonia. 3. Nonspecific prominent mediastinal and peribronchial lymph nodes. Enlarged subcarinal lymph nodes. 4. Cholelithiasis. 5. Somewhat cirrhotic contour to the liver. Recommend correlation with liver function tests. 6. Dilated IVC nonspecific but can be seen with liver disease and RIGHT heart failure. 7. Diffuse body wall anasarca. 8. Nonspecific enlarged RIGHT greater than LEFT inguinal lymph nodes. Foot X-Ray 06/13/25 13:07 Impression: 1. No evidence of osteomyelitis. 2. 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 Laboratory Results WBC 24.54 10^3/uL (3.29-11.43) H 06/13/25 09:26 RBC 4.06 10^6/uL (3.85-5.65) 06/13/25 09:26 Hgb 12.00 g/dL (11.27-16.99) 06/13/25 09: Hct 37.2 % (37-53) 06/13/25 09: MCV 91.6 fl (82-101) 06/13/25 09:26 MCH 29.6 pg (27-33) 06/13/25 09: MCHC 32.3 g/dL (30-55) 06/13/25 09: RDW 15.9 % (12.1-15.1) H 06/13/25 09:26 Plt Count 93 10^3/cmm (157-399) L 06/13/25 09:26 MPV 12.2 fL (7.4-10.4) H 06/13/25 09:26 Neut % (Auto) 93.3 % 06/13/25 09: Lymph % (Auto) 1.6 % 06/13/25 09: [place] % (Auto) 3.7 % 06/13/25 09: Eos % (Auto) 0.0 % 06/13/25 09: Baso % (Auto) 0.2 % 06/13/25 09: Neut # (Auto) 22.87 10^3/uL (1.8-7.7) H 06/13/25 09:26 Lymph # (Auto) 0.4 10^3/uL (0.8-4.8) L 06/13/25 09:26 [place] # (Auto) 0.9 10^3/uL (0.2-0.9) 06/13/25 09: Eos # (Auto) 0.0 10^3/uL (0.0-0.8) 06/13/25 09: Baso # (Auto) 0.0 10^3/uL (0.0-0.1) 06/13/25 09: Nucleated RBC % (auto) 0 % 06/13/25 09: Nucleated RBCs # 0.0 /100WBC 06/13/25 09: D-Dimer 1.77 ug/mLFEU (0-0.59) H 06/13/25 09:26 Specimen Type Arterial 06/13/25 09:56 Sample Site Radial, right 06/13/25 09:56 ABG pH 7.44 (7.35-7.45) 06/13/25 09:56 ABG pCO2 32.8 mmHg (35-45) L 06/13/25 09:56 ABG pO2 57.2 mmHg (80.0-100.0) L 06/13/25 09:56 ABG PO2/FiO2 Ratio 272 06/13/25 09:56 ABG HCO3 22.1 mmol/L (22-26) 06/13/25 09:56 ABG O2 Saturation 90.2 06/13/25 09:56 ABG Base Excess -1.5 mmol/L (-2.0-2.0) 06/13/25 09:56 Eduard Test Pos 06/13/25 09:56 A-a O2 Gradient 6.9 mmHg (5-10) 06/13/25 09:56 Hematocrit 37.0 % (42-52) L 06/13/25 09:56 Hgb O2 Saturation 87.3 % (95-100) L 06/13/25 09:56 Carboxyhemoglobin 2.1 %THgb (0.4-20.1) 06/13/25 09:56 Methemoglobin 1.1 % (0.4-1.5) 06/13/25 09:56 Total Hemoglobin 12.1 g/dL (14-18) L 06/13/25 09:56 Sodium 135.0 mmol/L (131-143) 06/13/25 09:56 Potassium 4.0 mmol/L (3.5-5.0) 06/13/25 09:56 Glucose 134.0 mg/dL (70-115) H 06/13/25 09:56 Ionized Calcium 1.1 mmol/L (1.1-1.4) 06/13/25 09:56 O2 Delivery Device Room air 06/13/25 09:56 FiO2 21.0 % 06/13/25 09:56 Ship Fastener ID Amh 06/13/25 09:56 Sodium 136 mmol/L (136-145) 06/13/25 09:26 Potassium 4.0 mmol/L (3.5-5.1) 06/13/25 09:26 Chloride 99 mmol/L (98-107) 06/13/25 09:26 Carbon Dioxide 22 mmol/L (22-29) 06/13/25 09:26 Anion Gap 19.0 (5-19) 06/13/25 09:26 BUN 47 mg/dL (8-23) H 06/13/25 09:26 Creatinine 2.0 mg/dL (0.7-1.2) H 06/13/25 09:26 GFR Calculation Not Reportable 06/13/25 09:26 Glucose 120 mg/dL (65-115) H 06/13/25 09:26 Calculated Osmolality 295 mOsm/kg (285-295) 06/13/25 09:26 Lactic Acid 4.0 mmol/L (0.5-2.2) H 06/13/25 09:26 Calcium 8.5 mg/dL (8.5-10.5) 06/13/25 09:26 Iron 27 ug/dL (59-158) L 06/13/25 09:26 TIBC 294 mcg/dl 06/13/25 09:26 % Saturation 9.1 % (20-50) L 06/13/25 09:26 Unsat Iron Binding 267 ug/dL (112-347) 06/13/25 09:26 Total Bilirubin 1.8 mg/dL (0.15-1.2) H 06/13/25 09:26 AST 62 U/L (0-40) H 06/13/25 09:26 ALT 21 U/L (0-41) 06/13/25 09:26 Alkaline Phosphatase 150 U/L (40-130) H 06/13/25 09:26 Creatine Kinase 2532 U/L (39-308) H* 06/13/25 09:26 Total Protein 7.5 g/dL (6.6-8.7) 06/13/25 09:26 Albumin 3.5 g/dL (3.5-5.2) 06/13/25 09:26 Globulin 4.0 g/dL (1.3-4.6) 06/13/25 09:26 Procalcitonin 7.20 ng/mL (0-0.5) H 06/13/25 09:26 TSH 2.27 uIU/mL (0.27-4.20) 06/13/25 09:26 All radiology interpretation(s) finalized by discharge Discharge Plan Discharge Patient Disposition: Admitted As Inpatient Admit Provider: Ean Grayson Clinical Impression: Septic shock, Type 2 diabetes mellitus, Thrombocytopenia, Rhabdomyolysis, Acute kidney injury Condition: Stable Coding Level of Care Code ED Assessment Consultant for Leeroy Vidales
[2025-06-13 10:59] LABS: Lactic Sepsis W/Reflex 4.0 mmol/L (0.5-2.2)
[2025-06-13] MEDS: cefTRIAXone 1,000 mg SDV 1000 MG IVP (11:10)
[2025-06-13 12:25] LABS: Reflex Lactate Order REFLEX LACTIC ORDERD
--- NOTE | 2025-06-13 12:26 | PC.NURSE ---
UPON CHECK FOR NARANJO PLACEMENT, PATIENT HAS INDER DIAPER PLACED AROUND GENITALS TO COLLECT URINE. DIAPER WAS FULL AND FOWL SMELLING LIKE URINE. PATIENT STATES I DO THAT TO COLLECT PEE. NURSE VERBALIZED UNDERSTANDING. MULTIPLE ATTEMPTS MADE FOR NARANJO PLACEMENT BY THIS NURSE AND OTHERS. 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 SMALLER CATHETER WAS ATTEMPTED, BUT WOULD NOT ADVANCE PAST PROSTATE. NO URINE COLLECTED. BLADDER SCAN BY THIS NURSE AFTER NARANJO ATTEMPTS. 315 ML IN BLADDER.
--- NOTE | 2025-06-13 13:04 | USR_ITS ---
PROCEDURE INFORMATION: Exam: US Duplex Lower Extremity Veins, Bilateral Exam date and time: 06/13/2025 5:41 PM Age: 74 years old Clinical indication: Screening exam; R/O dvt-lymphedema; Additional info: Possible dvt TECHNIQUE: Imaging protocol: Real-time duplex ultrasound of the bilateral extremities with 2-D tubbs scale, color Doppler flow and spectral waveform analysis including responses to compression and other maneuvers (when performed) with image documentation. Complete exam focused on the lower extremity veins. COMPARISON: MR foot RT wo/w con [id number] 02/15/2025 1:01 PM FINDINGS: Right deep veins: Unremarkable. The common femoral, femoral, proximal profunda femoral and popliteal veins are patent without thrombus. Normal Doppler waveforms. Normal compressibility and/or augmentation response. Left deep veins: Unremarkable. The common femoral, femoral, proximal profunda femoral and popliteal veins are patent without thrombus. Normal Doppler waveforms. Normal compressibility and/or augmentation response. Superficial veins: Greater saphenous veins at the saphenofemoral junctions are patent bilaterally without thrombus. Soft tissues: Unremarkable. Few mildly prominent nodes in the right groin, questionable clinical significance. US/[place] [id number] IMPRESSION: No evidence of deep vein thrombosis.
--- NOTE | 2025-06-13 13:04 | CT_ITS ---
WS: [id number] CT CHEST, ABDOMEN, AND PELVIS TECHNIQUE: Noncontrast CT of the chest, abdomen, and pelvis with coronal and sagittal reformatted images. CLINICAL INFORMATION: severe sepsis, possible pna, abd distension COMPARISON: None. DLP: 1368.[address] scans at [facility] use at least one of these dose optimization techniques: automated exposure control; mA and/or kV adjustment per patient size (includes targeted exams where dose is matched to clinical indication); or iterative reconstruction. CT CHEST: Cardiomegaly. Aortic calcification. Coronary calcification. Numerous prominent mediastinal lymph nodes nonspecific but may be reactive. Enlarged subcarinal lymph nodes. Normal caliber thoracic aorta. Aortic calcification. No axillary lymphadenopathy. Chronic RIGHT rib fractures with callus formation. Subsegmental atelectasis in the lung bases. No focal pneumonia. Mild interstitial edema. CT ABDOMEN AND PELVIS: Cholelithiasis. No gallbladder wall thickening or pericholecystic fluid. Hepatomegaly. Coarse nodular noncontrast liver. Recommend correlation with liver function test. Diffuse body wall anasarca. Dilated prominent IVC. Fatty atrophy of the pancreas. Splenic artery calcification. Normal noncontrast spleen. Tiny esophageal hiatal hernia. RIGHT greater than LEFT inguinal lymphadenopathy. Mild sigmoid constipation. Urine distended bladder. LEFT ROSY degrades images in the pelvis. Adrenal glands are normal. No hydronephrosis in either kidney. CT/[place] [id number] IMPRESSION: Exam is somewhat limited without IV contrast. 1. Cardiomegaly. 2. No focal pneumonia. 3. Nonspecific prominent mediastinal and peribronchial lymph nodes. Enlarged s ubcarinal lymph nodes. 4. Cholelithiasis. 5. Somewhat cirrhotic contour to the liver. Recommend correlation with liver f unction tests. 6. Dilated IVC nonspecific but can be seen with liver disease and RIGHT heart failure. 7. Diffuse body wall anasarca. 8. Nonspecific enlarged RIGHT greater than LEFT inguinal lymph nodes.
--- NOTE | 2025-06-13 13:04 | USCV_ITS ---
Axel Wilcox Age: 74 Gender: M : 1950 Exam Date: 06/13/2025 18:36 Ordering Phys: Ean Grayson MD Technologist: JUICE Exam Location: [facility] [place] Indication: chf, septic shock, DM2, HTN, history of Afib, CAD s/p PCI, CKD, MORBID obesity, BLE 3+ PITTING EDEMA BP: 93 / 49 HR: 53 Rhythm: Atrial fibrillation Technical Quality: Adequate MEASUREMENTS (Male / Female) Normal Values 2D ECHO LV Diastolic Diameter PLAX 4.4 cm 4.2 - 5.9 / 3.9 - 5.3 cm IVS Diastolic Thickness 1.4 cm 0.6 - 1.0 / 0.6 - 0.9 cm IVS Systolic Thickness 1.7 cm LVPW Diastolic Thickness 1.4 cm 0.6 - 1.0 / 0.6 - 0.9 cm LVPW Systolic Thickness 1.6 cm LVOT Diameter 2.1 cm LV Ejection Fraction 2D Teich 73.9 % LV Ejection Fraction MOD 4C 67.0 % LV Ejection Fraction MOD 2C 62.4 % LV Ejection Fraction 2C AL 60.4 % LA Diameter 5.5 cm Aorta at Sinotubular Diameter 3.3 cm IVC Diameter 3.4 cm M-MODE LA Ao Ratio MM 1.8 AV Cusp Separation MM 1.9 cm DOPPLER LVOT Peak Velocity 73.0 cm/s AV Area Cont Eq vti 1.9 cm squared AV Area Cont Eq pk 2.7 cm squared MV Peak Velocity 116.0 cm/s MV Area PHT 5.4 cm squared Mitral E to A Ratio 336.0 TV Peak Velocity 277.3 cm/s TR Peak Velocity 330.0 cm/s TR Peak Gradient 43.6 mmHg TV Peak E Velocity 88.0 cm/s PV Peak Velocity 92.0 cm/s FINDINGS Left Ventricle Flattened septum in systole consistent with right ventricle pressure overload. Normal LV size with an ejection fraction of around 70% Right Ventricle Moderately increased right ventricular size. Moderately decreased right ventricular systolic function. Right Atrium Mildly increased right atrial size. Left Atrium Mildly increased left atrial size. IA Septum Appears to be intact Mitral Valve Mild-moderate mitral valve regurgitation. Aortic Valve Thickened aortic valve. Tricuspid Valve Moderate tricuspid valve regurgitation. Estimated pulmonary artery peak systolic pressure of 59 mmHg Pulmonic Valve Pulmonic valve not well visualized. Pericardium No pericardial effusion. Aorta Normal aortic annulus size. IVC Dilated IVC with decreased respiratory variation. CONCLUSIONS Normal LV size with an ejection fraction of around 70%. Flattened septum in systole consistent with right ventricle pressure overload. Mild biatrial enlargement Mild-moderate mitral valve regurgitation. Features of right ventricular pressure overload Moderate tricuspid valve regurgitation. Estimated pulmonary artery peak systolic pressure of 59 mmHg. Thickened aortic valve. There is no pericardial effusion. No obvious intracardiac masses or vegetations. Consider EVER, if clinically indicated No similar previous studies are available for comparison Dr Kacy Cordero MD FAC (Electronically Signed) Final Date: 14 June 2025 08:39 S
--- NOTE | 2025-06-13 13:07 | XR_ITS ---
WS: [id number] Right foot, 3 views, 06/13/2025 Clinical Data: possible great toe osteo Comparison: Right foot, 02/14/2025 Findings: No fractures or dislocations are seen. No bone destruction or erosion is noted. Degenerative change of the IP joints of the toes of the right foot is seen. There is a plantar spur and an Achilles spur. XR/XR foot RT 2V [id number] Impression: 1. No evidence of osteomyelitis. 2. 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
--- NOTE | 2025-06-13 13:09 | USR_ITS ---
PROCEDURE INFORMATION: Exam: US Abdomen, Limited; Right Upper Quadrant Exam date and time: 06/13/2025 5:30 PM Age: 74 years old Clinical indication: Abnormal findings; Abnormal lab test; Elevated liver enzymes; Additional info: Transaminitis, sepsis, possible cholecystitis TECHNIQUE: Imaging protocol: Real time ultrasound of the abdomen with image documentation. Limited exam focused on the right upper quadrant. COMPARISON: [place] [id number] 06/13/2025 1:15 PM FINDINGS: Liver: Normal. No masses. Gallbladder: Gallstones, without definitive inflammatory change. Biliary ducts: Normal. No stones. No dilation. Pancreas: Not well visualized. Right kidney: Normal. No mass. No hydronephrosis. Inferior vena cava: Prominent IVC, unknown clinical significance. Other findings: Technically difficult study. US/US liver [id number] IMPRESSION: Gallstones, without definitive inflammatory change.
--- NOTE | 2025-06-13 13:17 | PHA.VACGOAL ---
Vancomycin Goal - Goal Vancomycin Goal:: 15-20 mg/L Vancomycin Indication:: Other (SEPSIS) - Therapy Current therapy:: Meropenem Day of therpy:: Day []of [] . Actual body weight (kg): 310 lb - Data Labs: WBC 24.54 10^3/uL (3.29-11.43) H 06/13/25 09:26 RBC 4.06 10^6/uL (3.85-5.65) 06/13/25 09:26 Hgb 12.00 g/dL (11.27-16.99) 06/13/25 09:26 Hct 37.2 % (37-53) 06/13/25 09: MCV 91.6 fl (82-101) 06/13/25 09: MCH 29.6 pg (27-33) 06/13/25 09:26 MCHC 32.3 g/dL (30-55) 06/13/25 09: RDW 15.9 % (12.1-15.1) H 06/13/25 09:26 Sodium 136 mmol/L (136-145) 06/13/25 09:26 Potassium 4.0 mmol/L (3.5-5.1) 06/13/25 09:26 Chloride 99 mmol/L (98-107) 06/13/25 09:26 Carbon Dioxide 22 mmol/L (22-29) 06/13/25 09:26 Anion Gap 19.0 (5-19) 06/13/25 09:26 BUN 47 mg/dL (8-23) H 06/13/25 09:26 Creatinine 2.0 mg/dL (0.7-1.2) H 06/13/25 09:26 GFR Calculation Not Reportable 06/13/25 09:26 Last dialysis session:: N/A Drug administration history:: Medications Meropenem (Meropenem 1,000 Mg Sdv) 1,000 mg IVP Q12H [facility]; Protocol Discontinued Medications Ceftriaxone Sodium (Ceftriaxone 1,000 Mg Sdv) 1,000 mg IVP ONCE ONE; Protocol Stop: 06/13/25 11:00 Last Admin: 06/13/25 11:10 Dose: 1,000 mg Treatment plan:: new consult Regimen:: STARTED PATIENT ON 1000 MG Q12H PER PROTOCOL. BASED DOSING ON CRCL WITH ADJUSTED BODY WEIGHT BASED ON BMI OF 53.2 KG/M2. WILL CONTINUE TO MONITOR DAILY AND PLAN TO OBTAIN TROUGH PRIOR TO 4TH DOSE.
[2025-06-13 13:44] LABS: Procalcitonin 7.20 ng/mL (0-0.5); Thyroid Stimulating Hormone 2.27 uIU/mL (0.27-4.20)
[2025-06-13 13:54] LABS: Lactic Acid level (Lactate) 2.8 mmol/L (0.5-2.2)
[2025-06-13 13:56] LABS: Iron 27 ug/dL (59-158); Total Iron Binding Capacity 294 mcg/dl; Unsaturated Iron Binding 267 ug/dL (112-347)
[2025-06-13] MEDS: meropenem 1,000 mg SDV 1000 MG IVP (14:24)
--- NOTE | 2025-06-13 15:24 | PM.HP ---
Providers/Chief Complaint Admitting Physician: Ean Grayson MD Primary Care Provider: [facility] Chief Complaint: fall last night - weakness History of Present Illness Axel Wilcox is a 74 year old male with past medical history of type 2 diabetes mellitus, chronic bilateral lymphedema, hypertension, atrial fibrillation/Watchman device, CAD post PCI, chronic thrombocytopenia, lumbar stenosis, chronic CKD with creatinine baseline around 1.5 presents to the ER today via EMS because of feeling weak, tired since last night. As per patient he woke up around 2 to 3 AM last night to go to the bathroom and when he sat at the edge of the bed he slid down and could not get up till he was found sitting on the floor today morning. Patient denies any changes in medications recently. On examination his weak appearing, drowsy but AO x 3. Denies any nausea, vomiting but complains of occasional abdominal pain, denies any diarrhea, dysuria, difficulty breathing, cough more than usual, runny nose, sick contacts. In the ER he was found to be hypotensive with blood pressures mostly in high 80s to low 90s systolic. He was started on sepsis bolus. On examination currently his blood pressure is 100/66 mmHg Review of Systems General: Reports: 10 or more systems reviewed and unremarkable except in HPI and below Const: Denies: fever(s), chills, body aches, change in appetite, change in weight, malaise, night sweats, diaphoresis, change in sleep pattern, daytime sleepiness or snoring Eyes: Denies: change in vision, blurry vision, photophobia, eye discomfort or eye discharge ENMT: Denies: throat pain, enlarged tonsils, hoarseness, mouth pain, oral sores, dry mouth, tinnitus, nasal congestion or post nasal drip Card: Denies: chest pain, palpitations, irregular heart rhythm, edema, swelling of feet/ankles, lightheadedness, syncope, pre-syncope, dyspnea on exertion, orthopnea, leg pain with exertion or acrocyanosis Resp: Denies: dyspnea, productive cough, non-productive cough, wheezing, stridor, pain on inspiration, change in phlegm color, hemoptysis or chest congestion GI: Denies: abdominal pain, nausea, vomiting, hematemesis, coffee ground emesis, dysphagia, heartburn, diarrhea, constipation, bloating, GI cramping, change in bowel habits, pain on defecation, hematochezia or melena : Denies: flank pain, difficulty urinating, dysuria, urinary frequency, urinary urgency, urinary hesitancy, urinary dribbling, difficulty starting urination, change in urine stream, nocturia or hematuria Musc: Denies: neck pain, back pain, extremity pain, joint pain, joint swelling, joint redness, joint stiffness or limited range of motion Neuro: Denies: headache(s), numbness in extremities, weakness in extremities, sensory changes, lack of coordination, difficulty walking, frequent falls, dizziness, vertigo, confusion, Slurred speech present, difficulty communicating thoughts or seizure-like activity Psych: Denies: anxiety, depression, mood swings, panic attacks, hopelessness or irritability Endo: Denies: polyuria, polydipsia, tired all the time, cold intolerance, excessive sweating, flushing or heat intolerance Chepe/Lymph: Denies: easy bruising or easy bleeding All/Imm: Denies: tongue swelling, facial swelling or acute wheezing Medications/Allergies Home Medications ?Medication ?Instructions ?Recorded ?Confirmed ?Last Taken ?Type diabteic shoes w/ 3 inserts #1 ea 02/19/24 06/13/25 Unknown Rx aspirin 81 mg tablet,delayed 81 mg PO DAILY 02/26/24 06/13/25 06/12/25 History release atorvastatin 40 mg tablet 40 mg PO DAILY 02/26/24 06/13/25 06/12/25 History dapagliflozin propanediol 10 mg 10 mg PO DAILY 02/26/24 06/13/25 06/12/25 History tablet (Farxiga) escitalopram oxalate 10 mg tablet 10 mg PO DAILY 02/26/24 06/13/25 06/12/25 History lisinopril 5 mg tablet 5 mg PO DAILY 02/26/24 06/13/25 06/12/25 History potassium chloride 20 mEq/15 mL 20 meq PO BID 02/26/24 06/13/25 06/12/25 History oral liquid glimepiride 2 mg tablet 2 mg PO DAILY 09/07/24 06/13/25 06/12/25 History tamsulosin 0.4 mg capsule (Flomax) 0.4 mg PO QPM 09/07/24 06/13/25 06/11/25 20:00 History Custom Molded Orthotics #1 ea 10/01/24 06/13/25 Unknown Rx diabetic shoes with 3 custom #1 ea 11/11/24 06/13/25 Unknown Rx inserts mupirocin 2 % topical ointment 1 applic topical BID #15 grams 04/21/25 06/13/25 06/12/25 Rx (Centany) bumetanide 2 mg tablet 4 mg (2 x 2 mg) PO BID #14 tabs 04/28/25 06/13/25 06/12/25 Rx magnesium glycinate 100 mg PO BEDTIME 04/28/25 06/13/25 04/27/25 20:00 History acidophilus 100 million 1 cap PO BID 06/13/25 06/13/25 06/12/25 History cell-pectin, citrus 10 mg capsule dulaglutide 1.5 mg/0.5 mL 1.5 mg SUBCUT Q7D 06/13/25 06/13/25 06/11/25 History subcutaneous pen injector (Trulicity) Allergies Allergy/AdvReac Type Severity Reaction Status Date / Time Penicillins Allergy Unknown Verified 06/07/25 07:51 PFSH Acute PFSH: Medical History (Updated 06/13/25 @ 17:00 by Ean Grayson MD) Paroxysmal A-fib Presence of Watchman left atrial appendage closure device CAD (coronary artery disease) Thrombocytopenia Dystrophia unguium Peripheral neuropathy Ulcer of right foot with fat layer exposed Diabetic infection of right foot Type 2 diabetes mellitus Social History Smoking and tobacco/nicotine status: tobacco/nicotine user, details unknown Vitals/I&O/Wt Last Vital Signs Temp 98.3 F 06/13/25 09:02 Pulse 62 06/13/25 15:15 Resp 18 06/13/25 15:15 BP 101/58 06/13/25 15:15 Pulse Ox 91 06/13/25 15:15 O2 Del Method Room Air 06/13/25 09:02 06/13/25 06/13/25 06/13/25 06:59 14:59 22:59 Intake Total 1776 / 1776 Balance 1776 / 1776 Weight last 48 hrs Weight 140.614 kg Physical Exam Narrative: General: No acute distress, AO x3, drowsy, sick appearing HEENT: PERRLA, pupils bilaterally equal and reactive Chest: Normal vesicular breath sounds, no added sounds, equal good air entry bilaterally CVS: S1-S2 regular, no murmurs, no tachycardia, no gallops, no rubs Abdomen: Soft, mild tenderness in the right upper quadrant and epigastric region, distended, no organomegaly, bowel sounds present Neuro: No focal deficits, no facial deformity, AO x3, power 5/5 in all limbs Data 06/13/25 09:26 06/13/25 09:26 Micro: Microbiology 06/13/25 10:42 Blood Culture - Preliminary Blood SPECIMEN COLLECTED 06/13/25 10:44 Blood Culture - Preliminary Blood SPECIMEN COLLECTED A&P Assessment and plan 1. Septic shock: SIRS: Tachycardic, Febrile, Leukocytosis Source: Unknown. Cannot rule out cellulitis versus cholecystitis. End organ damage: Acute infectious encephalopathy Lactic acid elevated. Patient getting sepsis bolus. Repeat lactate in 2 hours. Finish fluid bolus as per sepsis protocol with 30 cc/h. Start NS at 75 cc/h afterwards. Goal blood pressure with mean more than 65 mmHg. If needed can start on Levophed. Check echocardiogram. Check blood culture, urinalysis, urine culture, MRSA swab, trend procalcitonin, urine bacterial antigen, sputum culture. Patient does have mild transaminitis with elevated alkaline phosphatase. Does not have significant right upper quadrant tenderness. Will get right upper quadrant ultrasound for further evaluation. Right lower limb x-ray to rule out osteomyelitis. CT chest abdomen pelvis without contrast for further evaluation. Check D-dimer. If elevated will plan for lower limb Dopplers for further evaluation. Patient does have significant bilateral lymphedema. Empirically start patient on IV vancomycin and meropenem for now. Patient is allergic to penicillin. If MRSA swab negative will discontinue vancomycin. Monitor Vanco random levels daily. Watch for fluid overload. Patient does not have any significant history of CHF but does have history of CAD. Chest x-ray consistent with mild cardiomegaly. 2. Acute kidney injury superimposed on CKD: Baseline creatinine around 1.5. Currently 2 with mildly elevated BUN up to 47. Most likely in setting of sepsis. Medical reconciliation done for nephrotoxic drugs. Hold off on home dose of Bumex, lisinopril for now. Monitor renal functions daily. CT abdomen pelvis to rule out obstructive nephropathy. 3. Elevated lactic acid level: 4. Thrombocytopenia: 5. Rhabdomyolysis: Most likely in setting of fall. Monitor CPK daily for now. IV fluid as above. 6. Hyperbilirubinemia: With normal LFTs. Alkaline phosphatase elevated. Liver ultrasound as above. Hepatitis panel. 7. Paroxysmal A-fib: Telemetry monitoring. Currently having bradycardia. Continue to monitor. 8. CAD (coronary artery disease): Denies any active chest pain. Continue with aspirin, statin. Check A1c, lipid panel. Cycle troponins. 9. Toxic metabolic encephalopathy: In setting of severe sepsis versus mild uremia. ABG negative for hypercapnia. Continue to monitor. Liquid diet for now. Plan: Continue other chronic medications including escitalopram, aspirin, statin. Type 2 diabetes mellitus: Check A1c. Hold off on OHA. Insulin sliding scale at low-dose protocol. CODE STATUS: Discussed today with the patient. Full code. Brother at [place] be DPOA. Clear liquid diet for now. Protonix for PUD prophylaxis Heparin for DVT prophylaxis PDMP PDMP Reviewed: Not Reviewed Attestations Medical Necessity Statement*: Admission for more than 2 midnights for management of severe sepsis/septic shock, rhabdomyolysis in a patient with concern for UTI versus cellulitis versus cholecystitis Critical Care Time: The high probability of a clinically significant, sudden or life threatening deterioration of the patient's [cardiac, renal] system(s) required my full and direct attention, intervention and personal management. The critical care time is as shown. This time is in addition to time spent performing any reported procedures but includes the following: [x] Data and vital sign review and interpretation [x] Patient assessment, examination and intervention [x] Documentation [x] Medication orders and management Coding Level of Care Code Critical Care >/= 30 minutes Critical care time (in minutes): 65 The high probability of a clinically significant, sudden or life threatening deterioration, as referenced in this documentation, required my full and direct attention, intervention and personal management. The critical care time shown is in addition to time spent performing any reported separately billable procedures and includes the following: [x] Data and vital sign review and interpretation [x] Patient assessment, examination and intervention [x] Medication orders and management [x] Patient/Family updates as able [x] Care Coordination and Documentation. Diagnoses Septic shock A41.9; R65.21 Acute kidney injury superimposed on CKD N17.9; N18.9 Elevated lactic acid level R79.89 Thrombocytopenia D69.6 Rhabdomyolysis M62.82 Hyperbilirubinemia E80.6 Paroxysmal A-fib I48.0 CAD (coronary artery disease) I25.10 Toxic metabolic encephalopathy G92.8
[2025-06-13 15:46] LABS: Glucose Urine UA 2+ (Normal); Nitrate Urine Negative (Negative); Specific Gravity, Urine 1.014 (1.005-1.030)
[2025-06-13 15:52] LABS: Add Urine Microscopic? YES
--- NOTE | 2025-06-13 16:58 | ECG_ITS ---
[employer] Test Date: 2025-06-13 Pat Name: Axel Wilcox Department: Room: EDIP Gender: Male Core Filer: : 1950 Requested By: Ean Grayson Order Number: [id number] Brandie MD: Kacy Cordero M.D. Measurements Intervals [place] Rate: 60 P: 0 MO: 0 QRS: 103 QRSD: 120 T: -44 QT: 452 QTc: 452 Interpretive Statements ATRIAL FIBRILLATION RIGHT AXIS DEVIATION [QRS AXIS > 100] RIGHT BUNDLE BRANCH BLOCK [120+ ms QRS DURATION, UPRIGHT V1, 40+ ms S IN I/aVL/V4/V5/V6] ANTEROSEPTAL MYOCARDIAL INFARCTION , OF INDETERMINATE AGE [40+ ms Q WAVE IN V1-V4] Compared to ECG 04/28/2025 10:47:30 Right-axis deviation now present Myocardial infarct finding still present Electronically Signed On 06-14-2025 22:05:29 ARCHITECTURAL INTERN by Kacy Cordero M.D. [id number]
[2025-06-13 17:17] LABS: Vitamin B12 445 pg/mL (232-1245)
[2025-06-13] MEDS: pantoprazole 40 mg SDV IVP (17:42)
[2025-06-13] MEDS: heparin 5,000 unit/mL INJ 1 mL 5000 UNIT SUBCUT (17:42)
[2025-06-13 17:56] LABS: Troponin(5th) Baseline 72 ng/L (0-15)
[2025-06-13 17:58] LABS: Lipase 27 U/L (13-60)
[2025-06-13 19:27] LABS: MRSA PCR OZH (swab) MRSA Not Detected (Negative)
--- NOTE | 2025-06-13 19:54 | ECG_ITS ---
[facility] Date: 2025-06-13 Pat Name: Axel Wilcox Department: Room: EDIP Gender: Male Child Care Team Lead: : 1950 Requested By: Ean Grayson Order Number: [id number] Brandie MD: Kacy Cordero M.D. Measurements Intervals [place] Rate: 55 P: 0 VA: 0 QRS: 99 QRSD: 134 T: -10 QT: 498 QTc: 479 Interpretive Statements ATRIAL FIBRILLATION WITH SLOW VENTRICULAR RESPONSE RIGHT BUNDLE BRANCH BLOCK [120+ ms QRS DURATION, UPRIGHT V1, 40+ ms S IN I/aVL/V4/V5/V6] ANTEROSEPTAL MYOCARDIAL INFARCTION , OF INDETERMINATE AGE [40+ ms Q WAVE IN V1-V4] Compared to ECG 06/13/2025 17:18:15 Right-axis deviation no longer present Myocardial infarct finding still present Electronically Signed On 06-14-2025 22:22:31 FILTER WASHER AND PRESSER by Kacy Cordero M.D. [id number]
[2025-06-13 20:02] LABS: Coronavirus 229E,HKU1,NL63,OC4 Not Detected (NOT DETECT); Parainfluenza Virus Type 1 Not Detected (NOT DETECT); Parainfluenza Virus Type 2 Not Detected (NOT DETECT); Parainfluenza Virus Type 3 Not Detected (NOT DETECT); Parainfluenza Virus Type 4 Not Detected (NOT DETECT); SARS-COV-2 Not Detected (NOT DETECT)
[2025-06-13 20:21] LABS: Troponin 5 2HR 70.18 ng/L (0-15)
[2025-06-13 20:23] LABS: Troponin 5 2HR Delta -1.82 ABS# (0-10)
--- NOTE | 2025-06-13 21:56 | PC.NURSE ---
Patient arrived to ICU 2 at 2120. Patient alert and oriented. Oriented to room. Placed in gown and on hover mat. Patient does wear hearing aides but does not have them with him. His right ear is his good ear.
--- NOTE | 2025-06-13 22:58 | ECG_ITS ---
[employer] Test Date: 2025-06-13 Pat Name: Axel Wilcox Department: Room: ICU02 Gender: Male Cold Storage Superintendent: : 1950 Requested By: Ean Grayson Order Number: [id number] Brandie MD: Kacy Cordero M.D. Measurements Intervals [place] Rate: 49 P: 0 IN: 0 QRS: 109 QRSD: 132 T: -84 QT: 494 QTc: 450 Interpretive Statements ATRIAL FIBRILLATION WITH SLOW VENTRICULAR RESPONSE RIGHT AXIS DEVIATION [QRS AXIS > 100] RIGHT BUNDLE BRANCH BLOCK [120+ ms QRS DURATION, UPRIGHT V1, 40+ ms S IN I/aVL/V4/V5/V6] ANTEROSEPTAL MYOCARDIAL INFARCTION , OF INDETERMINATE AGE [40+ ms Q WAVE IN V1-V4] Compared to ECG 06/13/2025 19:54:00 Right-axis deviation now present Myocardial infarct finding still present Electronically Signed On 06-14-2025 22:21:02 CAN FEEDER by Kacy Cordero M.D. [email or web address]
--- NOTE | 2025-06-13 23:14 | PC.NURSE ---
Attempts to place catheter unsuccessful. transmitter supervisor acquired coude catheter and still unsuccessful placement.
[2025-06-13 23:45] LABS: Troponin 5 6HR 73.93 ng/L (0-15); Troponin 5 6HR Delta 1.93 ng/L (0-12)
[2025-06-14] VITALS (61 sets, daily range): BP systolic 93–169; BP diastolic 58–99; PULSE 46–103; RESP 11–28; TEMP 36.1–37.2; O2SAT 92–100
[2025-06-14 00:05] LABS: Hepatitis A Antibody IgM Non-Reactive (Nonreactive); Hepatitis B Surface Antigen Non-Reactive (Nonreactive)
[2025-06-14 00:06] LABS: HIV 1 & 2 Antigen Non-Reactive (Non-Reactiv)
[2025-06-14] MEDS: meropenem 1,000 mg SDV 1000 MG IVP ×2 (00:53→13:55)
[2025-06-14] MEDS: heparin 5,000 unit/mL INJ 1 mL 5000 UNIT SUBCUT ×3 (00:54→16:20)
--- NOTE | 2025-06-14 04:45 | PC.NURSE ---
Patient reported to this nurse that he forgot to tell ED provider that he had a few days of black tarry stools prior to coming to ED. Message sent to dayshift admitting provider. Patient has not yet had a bowel movement since admitting to ICU.
[2025-06-14 05:59] LABS: Hematocrit 34.8 % (37-53); Hemoglobin 11.20 g/dL (11.27-16.99); Mean Corpuscular HGB Conc 32.2 g/dL (30-55); Mean Corpuscular Hemoglobin 29.9 pg (27-33); Mean Corpuscular Volume 92.8 fl (82-101); Nucleated Red Blood Cells % 0 %; Platelet Count 90 10^3/cmm (157-399); Red Blood Count 3.75 10^6/uL (3.85-5.65); White Blood Count 16.12 10^3/uL (3.29-11.43)
[2025-06-14 06:17] LABS: Alanine Aminotransferase 28 U/L (0-41); Albumin Level 3.1 g/dL (3.5-5.2); Alkaline Phosphatase 109 U/L (40-130); Anion Gap 14.7 (5-19); Aspartate Amino Transferase 98 U/L (0-40); Blood Urea Nitrogen 47 mg/dL (8-23); Calcium 8.5 mg/dL (8.5-10.5); Carbon Dioxide 23 mmol/L (22-29); Chloride 103 mmol/L (98-107); Creatinine Clr Calc Pharmacy 54.7399; Globulin 3.8 g/dL (1.3-4.6); Glucose 132 mg/dL (65-115); Magnesium 2.5 mg/dL (1.7-2.3); Osmolality Calculated 298 mOsm/kg (285-295); Potassium 3.7 mmol/L (3.5-5.1); Sodium 137 mmol/L (136-145); Total Protein 6.9 g/dL (6.6-8.7)
[2025-06-14 06:23] LABS: Cholesterol 67 mg/dL (0-200); HDL Cholesterol 30 mg/dL (60-100); Triglycerides 68 mg/dL (0-150)
[2025-06-14 06:24] LABS: Procalcitonin 10.00 ng/mL (0-0.5)
[2025-06-14 12:38] LABS: C.Diff PCR (Lab) NEGATIVE (Negative)
--- NOTE | 2025-06-14 13:34 | P.PN_ITS ---
Subjective 2 Subjective: No acute events overnight. Patient more awake and alert today. Denies any nausea, vomiting, headache. Able to have complete conversation. Denies any abdominal pain, nausea, vomiting, headache. Vitals/I&O/Wt Last Vital Signs Temp 97.0 F L 06/14/25 07:45 Pulse 57 L 06/14/25 10:15 Resp 17 06/14/25 10:15 BP 126/71 06/14/25 10:15 Pulse Ox 93 06/14/25 10:15 O2 Del Method Nasal Cannula 06/14/25 10:15 O2 Flow Rate 4 06/14/25 10:15 06/13/25 06/14/25 06/14/25 22:59 06:59 14:59 Intake Total 250 / 2025 1450 / 3476 600 / 600 Output Total 300 / 300 Balance 250 2025 1150 / 3176 600 / 600 Weight last 48 hrs Weight 146.5 kg Weight 146.5 kg Weight 140.614 kg Physical Exam 2 Narrative: General: No acute distress, AO x3, HEENT: PERRLA, pupils bilaterally equal and reactive Chest: Normal vesicular breath sounds, no added sounds, equal good air entry bilaterally CVS: S1-S2 regular, no murmurs, no tachycardia, no gallops, no rubs Abdomen: Soft, mild tenderness in the right upper quadrant and epigastric region, distended, no organomegaly, bowel sounds present Neuro: No focal deficits, no facial deformity, AO x3, power 5/5 in all limbs Data 06/14/25 05:36 06/14/25 05:36 Micro: Microbiology 06/14/25 11:08 Stool Lactoferrin - Final Stool Occult Blood (FIT) - Final 06/13/25 10:42 Blood Culture - Preliminary Blood NEGATIVE TO DATE 06/13/25 10:44 Blood Culture - Preliminary Blood NEGATIVE TO DATE 06/13/25 15:25 Bacterial Antigens - Final Urine Kidney 06/14/25 04:30 Gram Stain - Final Sputum - Expectorated Sputum A&P Assessment and plan 1. Septic shock: SIRS: Tachycardic, Febrile, Leukocytosis Source: Lower limb cellulitis End organ damage: Acute infectious encephalopathy Lactic acid elevated. Repeat lactate today. Continue with NS at 75 cc/h. Goal blood pressure with mean more than 65 mmHg. Echocardiogram done shows an EF of 70% with flattened septum, moderately dilated RV with decreased RV function, mild to moderate MR, moderate TR with PASP of 59 mmHg. Follow-up blood culture, urine culture, negative MRSA swab, appreciate trend procalcitonin, negative urine bacterial antigen, appreciate sputum culture. Liver ultrasound and CT on pelvis negative for cholecystitis. Foot x-ray negative for osteomyelitis. Lower limb Dopplers negative for DVT. Continue with IV vancomycin and meropenem for now. Patient is allergic to penicillin. Monitor vancomycin random levels. Watch for fluid overload. Patient does not have any significant history of CHF but does have history of CAD. Chest x-ray consistent with mild cardiomegaly. 2. Acute kidney injury superimposed on CKD: Baseline creatinine around 1.5. Creatinine improving to around to baseline. Medical reconciliation done for nephrotoxic drugs. Hold off on home dose of Bumex, lisinopril for now. Monitor renal functions daily. CT abdomen pelvis to ruled out obstructive nephropathy. 3. Elevated lactic acid level: 4. Thrombocytopenia: 5. Rhabdomyolysis: Most likely in setting of fall. Repeat CPK in AM. 6. Hyperbilirubinemia: With normal LFTs. Alkaline phosphatase elevated. Appreciate liver ultrasound as above. Negative hepatitis panel. 7. Paroxysmal A-fib: Telemetry monitoring. Currently having bradycardia. Continue to monitor. 8. CAD (coronary artery disease): Denies any active chest pain. Continue with aspirin, statin. Appreciate A1c, lipid panel. Cycle troponins. 9. Toxic metabolic encephalopathy: Resolved. In setting of severe sepsis versus mild uremia. ABG negative for hypercapnia. Continue to monitor. 10. Cellulitis: Does have significant bilateral chronic lymphedema. Concern for cellulitis. Antibiotic as above. If leukocytosis does not improve in next 24 to 48 hours can plan for CT to rule out underlying collection. Check ESR, CRP. Plan: Continue other chronic medications including escitalopram, aspirin, statin. Type 2 diabetes mellitus: Hold off on OHA. Insulin sliding scale at low-dose protocol. CODE STATUS: Discussed today with the patient. Full code. Brother Mr. Issa Wilcox will be DPOA Mechanical soft carb consistent diet Protonix for PUD prophylaxis Heparin for DVT prophylaxis PT/OT evaluation. Transfer to [facility] floor. PDMP PDMP Reviewed: Not Reviewed Attestations 2 Medical Necessity Statement*: Further hospitalization for management of sepsis in setting of cellulitis, bilateral lymphedema, SCOTTIE on CKD leading to toxic metabolic encephalopathy Coding Level of Care Code Acute Code for Chg Fwd Diagnoses Septic shock A41.9; R65.21 Acute kidney injury superimposed on CKD N17.9; N18.9 Elevated lactic acid level R79.89 Thrombocytopenia D69.6 Rhabdomyolysis M62.82 Hyperbilirubinemia E80.6 Paroxysmal A-fib I48.0 CAD (coronary artery disease) I25.10 Toxic metabolic encephalopathy G92.8 Cellulitis L03.90
--- NOTE | 2025-06-14 15:45 | PC.NURSE ---
Report was given to Med surge nurse. Patient was transferred with all their belongings. Patient was stable during transfer.
[2025-06-14] MEDS: pantoprazole 40 mg SDV IVP (16:20)
[2025-06-15] VITALS (11 sets, daily range): BP systolic 107–124; BP diastolic 61–72; PULSE 48–79; RESP 16–19; TEMP 36.4–36.7; O2SAT 94–99
[2025-06-15] MEDS: heparin 5,000 unit/mL INJ 1 mL 5000 UNIT SUBCUT ×3 (01:03→16:28)
[2025-06-15] MEDS: meropenem 1,000 mg SDV 1000 MG IVP ×2 (01:04→13:57)
[2025-06-15 04:43] LABS: Hematocrit 31.7 % (37-53); Hemoglobin 10.30 g/dL (11.27-16.99); Mean Corpuscular HGB Conc 32.5 g/dL (30-55); Mean Corpuscular Hemoglobin 29.9 pg (27-33); Mean Corpuscular Volume 91.9 fl (82-101); Nucleated Red Blood Cells % 0 %; Platelet Count 75 10^3/cmm (157-399); Red Blood Count 3.45 10^6/uL (3.85-5.65); White Blood Count 10.80 10^3/uL (3.29-11.43)
[2025-06-15 05:06] LABS: Alanine Aminotransferase 31 U/L (0-41); Albumin Level 3.0 g/dL (3.5-5.2); Alkaline Phosphatase 99 U/L (40-130); Anion Gap 14.6 (5-19); Aspartate Amino Transferase 92 U/L (0-40); Blood Urea Nitrogen 40 mg/dL (8-23); Calcium 7.9 mg/dL (8.5-10.5); Carbon Dioxide 21 mmol/L (22-29); Chloride 104 mmol/L (98-107); Creatinine Clr Calc Pharmacy 67.3722; Globulin 3.4 g/dL (1.3-4.6); Glucose 100 mg/dL (65-115); Magnesium 2.6 mg/dL (1.7-2.3); Osmolality Calculated 292 mOsm/kg (285-295); Potassium 3.6 mmol/L (3.5-5.1); Sodium 136 mmol/L (136-145); Total Protein 6.4 g/dL (6.6-8.7)
[2025-06-15] MEDS: morphine 4 mg/mL SDV 1 mL 2 MG IVP (05:15)
--- NOTE | 2025-06-15 09:42 | PC.SOCIAL ---
IMM Update pg 2 of IMM Updated and reviewed w/ patient. Copy provided and copy dated, initialed and placed in chart.
--- NOTE | 2025-06-15 13:21 | P.PN_ITS ---
Subjective 2 Subjective: No acute events overnight. Patient more awake and alert today. Denies any nausea, vomiting, headache. Able to have complete conversation. Denies any abdominal pain, nausea, vomiting, headache. Vitals/I&O/Wt Last Vital Signs Temp 97.7 F 06/15/25 11:11 Pulse 63 06/15/25 11:11 Resp 18 06/15/25 11:11 BP 107/64 06/15/25 11:11 Pulse Ox 97 06/15/25 11:11 O2 Del Method Nasal Cannula 06/15/25 11:11 O2 Flow Rate 4 06/15/25 03:32 06/14/25 06/15/25 06/15/25 22:59 06:59 14:59 Intake Total 1145 / 1745 1250 / 2995 1360 / 1360 Output Total 200 / 200 Balance 1145 / 1745 1250 / 2995 1160 / 1160 Weight last 48 hrs Weight 147.418 kg Weight 146.5 kg Weight 146.5 kg Physical Exam 2 Narrative: General: No acute distress, AO x3, HEENT: PERRLA, pupils bilaterally equal and reactive Chest: Normal vesicular breath sounds, no added sounds, equal good air entry bilaterally CVS: S1-S2 regular, no murmurs, no tachycardia, no gallops, no rubs Abdomen: Soft, mild tenderness in the right upper quadrant and epigastric region, distended, no organomegaly, bowel sounds present Neuro: No focal deficits, no facial deformity, AO x3, power 5/5 in all limbs Data 06/15/25 04:19 06/15/25 04:19 Micro: Microbiology 06/14/25 04:30 Gram Stain - Final Sputum - Expectorated Sputum Sputum Culture - Preliminary 06/13/25 15:25 Urine Culture - Preliminary Urine,Voided 06/14/25 11:08 Stool Lactoferrin - Final Stool Occult Blood (FIT) - Final 06/13/25 10:42 Blood Culture - Preliminary Blood NEGATIVE TO DATE 06/13/25 10:44 Blood Culture - Preliminary Blood NEGATIVE TO DATE 06/13/25 15:25 Bacterial Antigens - Final Urine Kidney A&P Assessment and plan 1. Septic shock: SIRS: Tachycardic, Febrile, Leukocytosis Source: Lower limb cellulitis End organ damage: Acute infectious encephalopathy Lactic acid elevated. Repeat lactate today. Continue with NS at 75 cc/h. Goal blood pressure with mean more than 65 mmHg. Echocardiogram done shows an EF of 70% with flattened septum, moderately dilated RV with decreased RV function, mild to moderate MR, moderate TR with PASP of 59 mmHg. Follow-up blood culture, urine culture, negative MRSA swab, appreciate trend procalcitonin, negative urine bacterial antigen, appreciate sputum culture. Liver ultrasound and CT on pelvis negative for cholecystitis. Foot x-ray negative for osteomyelitis. Lower limb Dopplers negative for DVT. Continue with IV vancomycin and meropenem for now. Patient is allergic to penicillin. Monitor vancomycin random levels. Watch for fluid overload. Patient does not have any significant history of CHF but does have history of CAD. Chest x-ray consistent with mild cardiomegaly. 2. Acute kidney injury superimposed on CKD: Baseline creatinine around 1.5. Creatinine improving to around to baseline. Medical reconciliation done for nephrotoxic drugs. Hold off on home dose of Bumex, lisinopril for now. Monitor renal functions daily. CT abdomen pelvis to ruled out obstructive nephropathy. 3. Elevated lactic acid level: 4. Thrombocytopenia: 5. Rhabdomyolysis: Most likely in setting of fall. Repeat CPK in AM. 6. Hyperbilirubinemia: With normal LFTs. Alkaline phosphatase elevated. Appreciate liver ultrasound as above. Negative hepatitis panel. 7. Paroxysmal A-fib: Telemetry monitoring. Currently having bradycardia. Continue to monitor. 8. CAD (coronary artery disease): Denies any active chest pain. Continue with aspirin, statin. Appreciate A1c, lipid panel. Cycle troponins. 9. Toxic metabolic encephalopathy: Resolved. In setting of severe sepsis versus mild uremia. ABG negative for hypercapnia. Continue to monitor. 10. Cellulitis: Does have significant bilateral chronic lymphedema. Concern for cellulitis. Antibiotic as above. If leukocytosis does not improve in next 24 to 48 hours can plan for CT to rule out underlying collection. Check ESR, CRP. Plan: Continue other chronic medications including escitalopram, aspirin, statin. Type 2 diabetes mellitus: Hold off on OHA. Insulin sliding scale at low-dose protocol. CODE STATUS: Discussed today with the patient. Full code. Brother Mr. Issa Wilcox will be DPOA Mechanical soft carb consistent diet Protonix for PUD prophylaxis Heparin for DVT prophylaxis PT/OT evaluation. Plan for today: Continue with IV meropenem. Discontinue vancomycin as MRSA swab negative. Out of bed to chair. Physical therapy. Hold off on antihypertensives. Discontinue IV fluid. Encourage increase oral intake. Strict input and output charting. Chest x-ray to rule out fluid overload. Plan for Lasix accordingly. Restart home BiPAP. Discharge plan: Plan to discharge to home with home health in next 48 hours if patient remains hemodynamically stable. Will most likely need home oxygen evaluation prior to discharge. PDMP PDMP Reviewed: Not Reviewed Attestations 2 Medical Necessity Statement*: Further hospitalization for management of sepsis in setting of cellulitis, bilateral lymphedema, SCOTTIE on CKD leading to toxic metabolic encephalopathy Diagnoses Septic shock A41.9; R65.21 Acute kidney injury superimposed on CKD N17.9; N18.9 Elevated lactic acid level R79.89 Thrombocytopenia D69.6 Rhabdomyolysis M62.82 Hyperbilirubinemia E80.6 Paroxysmal A-fib I48.0 CAD (coronary artery disease) I25.10 Toxic metabolic encephalopathy G92.8 Cellulitis L03.90
--- NOTE | 2025-06-15 13:43 | XR_ITS ---
WS: [id number] Portable AP and lateral semiupright chest, 06/15/2025 Clinical Data: Hypoxia Comparison: Portable chest, 06/13/2025 Findings: No nodules, masses or effusions are seen. The heart is enlarged. The pulmonary vascularity is not increased. No pneumonia or pneumothorax is seen. The aortic arch shows calcification. Monitor leads on the chest wall. XR/XR chest 2V* [id number] Impression: Cardiomegaly and atherosclerosis.
[2025-06-15] MEDS: pantoprazole 40 mg SDV IVP (16:27)
[2025-06-16] VITALS (11 sets, daily range): BP systolic 108–154; BP diastolic 61–73; PULSE 48–112; RESP 14–22; TEMP 36.1–37.2; O2SAT 95–100
[2025-06-16] MEDS: meropenem 1,000 mg SDV 1000 MG IVP ×2 (01:30→13:59)
[2025-06-16] MEDS: heparin 5,000 unit/mL INJ 1 mL 5000 UNIT SUBCUT ×3 (01:30→18:29)
[2025-06-16 05:26] LABS: Hematocrit 34.6 % (37-53); Hemoglobin 10.90 g/dL (11.27-16.99); Mean Corpuscular HGB Conc 31.5 g/dL (30-55); Mean Corpuscular Hemoglobin 29.3 pg (27-33); Mean Corpuscular Volume 93.0 fl (82-101); Nucleated Red Blood Cells % 0 %; Platelet Count 80 10^3/cmm (157-399); Red Blood Count 3.72 10^6/uL (3.85-5.65); White Blood Count 7.10 10^3/uL (3.29-11.43)
[2025-06-16 05:57] LABS: Alanine Aminotransferase 33 U/L (0-41); Albumin Level 3.1 g/dL (3.5-5.2); Alkaline Phosphatase 108 U/L (40-130); Anion Gap 13.0 (5-19); Aspartate Amino Transferase 79 U/L (0-40); Blood Urea Nitrogen 35 mg/dL (8-23); Calcium 8.4 mg/dL (8.5-10.5); Carbon Dioxide 24 mmol/L (22-29); Chloride 104 mmol/L (98-107); Creatinine Clr Calc Pharmacy 73.8867; Globulin 3.8 g/dL (1.3-4.6); Glucose 96 mg/dL (65-115); Magnesium 2.6 mg/dL (1.7-2.3); Osmolality Calculated 292 mOsm/kg (285-295); Potassium 4.0 mmol/L (3.5-5.1); Sodium 137 mmol/L (136-145); Total Protein 6.9 g/dL (6.6-8.7)
--- NOTE | 2025-06-16 11:46 | P.PN_ITS ---
Subjective 2 Subjective: No acute events overnight. Patient more awake and alert today. Laying comfortably in bed. Was on BiPAP overnight. Currently on 4 L. Saturating almost 100%. For some reason was placed on 5 L overnight but as per charting saturations have been over 95 throughout. Patient denies any difficulty in breathing. States he is breathing as his baseline. Vitals/I&O/Wt Last Vital Signs Temp 97.3 F L 06/16/25 10:59 Pulse 62 06/16/25 10:59 Resp 18 06/16/25 10:59 BP 127/73 06/16/25 10:59 Pulse Ox 97 06/16/25 10:59 O2 Del Method Room Air 06/16/25 10:59 O2 Flow Rate 4 06/15/25 20:00 FiO2 30 06/16/25 00:57 06/15/25 06/16/25 06/16/25 22:59 06:59 14:59 Intake Total 980 / 2580 1250 / 3830 480 / 480 Output Total 700 / 1100 Balance 980 / 2180 550 / 2730 480 / 480 Weight last 48 hrs Weight 149.402 kg Weight 147.418 kg Physical Exam 2 Narrative: General: No acute distress, AO x3, HEENT: PERRLA, pupils bilaterally equal and reactive Chest: Normal vesicular breath sounds, no added sounds, equal good air entry bilaterally CVS: S1-S2 regular, no murmurs, no tachycardia, no gallops, no rubs Abdomen: Soft, mild tenderness in the right upper quadrant and epigastric region, distended, no organomegaly, bowel sounds present Neuro: No focal deficits, no facial deformity, AO x3, power 5/5 in all limbs Extremity: Bilateral chronic lymphedema changes present up to knee, less erythematous today. No pitting edema Data 06/16/25 04:19 06/16/25 04:19 Micro: Microbiology 06/14/25 04:30 Gram Stain - Final Sputum - Expectorated Sputum Sputum Culture - Preliminary 06/13/25 15:25 Urine Culture - Preliminary Urine,Voided A&P Assessment and plan 1. Septic shock: SIRS: Tachycardic, Febrile, Leukocytosis Source: Lower limb cellulitis End organ damage: Acute infectious encephalopathy Lactic acid elevated. Repeat lactate today. Continue with NS at 75 cc/h. Goal blood pressure with mean more than 65 mmHg. Echocardiogram done shows an EF of 70% with flattened septum, moderately dilated RV with decreased RV function, mild to moderate MR, moderate TR with PASP of 59 mmHg. Follow-up blood culture, urine culture, negative MRSA swab, appreciate trend procalcitonin, negative urine bacterial antigen, appreciate sputum culture. Liver ultrasound and CT on pelvis negative for cholecystitis. Foot x-ray negative for osteomyelitis. Lower limb Dopplers negative for DVT. Continue with IV vancomycin and meropenem for now. Patient is allergic to penicillin. Monitor vancomycin random levels. Watch for fluid overload. Patient does not have any significant history of CHF but does have history of CAD. Chest x-ray consistent with mild cardiomegaly. 2. Acute kidney injury superimposed on CKD: Baseline creatinine around 1.5. Creatinine improving to around to baseline. Medical reconciliation done for nephrotoxic drugs. Hold off on home dose of Bumex, lisinopril for now. Monitor renal functions daily. CT abdomen pelvis to ruled out obstructive nephropathy. 3. Elevated lactic acid level: 4. Thrombocytopenia: 5. Rhabdomyolysis: Most likely in setting of fall. Repeat CPK in AM. 6. Hyperbilirubinemia: With normal LFTs. Alkaline phosphatase elevated. Appreciate liver ultrasound as above. Negative hepatitis panel. 7. Paroxysmal A-fib: Telemetry monitoring. Currently having bradycardia. Continue to monitor. 8. CAD (coronary artery disease): Denies any active chest pain. Continue with aspirin, statin. Appreciate A1c, lipid panel. Cycle troponins. 9. Toxic metabolic encephalopathy: Resolved. In setting of severe sepsis versus mild uremia. ABG negative for hypercapnia. Continue to monitor. 10. Cellulitis: Does have significant bilateral chronic lymphedema. Concern for cellulitis. Antibiotic as above. If leukocytosis does not improve in next 24 to 48 hours can plan for CT to rule out underlying collection. Check ESR, CRP. 11. Moderate mitral regurgitation: 12. Acute on chronic right-sided congestive heart failure: Plan: Continue other chronic medications including escitalopram, aspirin, statin. Type 2 diabetes mellitus: Hold off on OHA. Insulin sliding scale at low-dose protocol. CODE STATUS: Discussed today with the patient. Full code. Brother Mr. Issa Wilcox will be DPOA Mechanical soft carb consistent diet Protonix for PUD prophylaxis Heparin for DVT prophylaxis PT/OT evaluation. Plan for the day: Continue IV meropenem to finish a 5-day course. Last dose on 06/17. Out of bed to chair. Wean oxygen supplementation keeping saturation over 88%. BiPAP nightly. Patient complaining of diarrhea most likely in setting of extensive bowel regimen. Hold off on MiraLAX. Continue with senna Colace twice daily. Denies any abdominal pain. Hold off on IV fluids. No need for diuretics for now. Blood pressure slightly elevated. Restart home dose of lisinopril. Goal blood pressure less than 140/90 mmHg. Patient does have concerns for right-sided heart failure and diastolic heart failure. Echocardiogram shows mild to moderate MR along with decreased right ventricular pressure overload and decreased RV functions. Discharge plan: Plan to discharge to home with home health in next 24 hours if patient remains hemodynamically stable. Will most likely need home oxygen evaluation prior to discharge. PDMP PDMP Reviewed: Not Reviewed Attestations 2 Medical Necessity Statement*: Further hospitalization for management of sepsis in setting of cellulitis, bilateral lymphedema, SCOTTIE on CKD leading to toxic metabolic encephalopathy, right-sided heart failure Diagnoses Septic shock A41.9; R65.21 Acute kidney injury superimposed on CKD N17.9; N18.9 Elevated lactic acid level R79.89 Thrombocytopenia D69.6 Rhabdomyolysis M62.82 Hyperbilirubinemia E80.6 Paroxysmal A-fib I48.0 CAD (coronary artery disease) I25.10 Toxic metabolic encephalopathy G92.8 Cellulitis L03.90 Moderate mitral regurgitation I34.0 Acute on chronic right-sided congestive heart failure I50.813 Heart failure type: right-sided Heart failure chronicity: acute on chronic
[2025-06-16] MEDS: DAPAGLIFLOZIN 10 MG TABLET PO (13:58)
[2025-06-16] MEDS: pantoprazole 40 mg SDV IVP (22:00)
[2025-06-17] VITALS: BP 132/70; PULSE 89; RESP 16; TEMP 37; O2SAT 100
[2025-06-17] MEDS: heparin 5,000 unit/mL INJ 1 mL 5000 UNIT SUBCUT ×2 (01:56→09:05)
[2025-06-17] MEDS: meropenem 1,000 mg SDV 1000 MG IVP ×2 (01:59→09:05)
[2025-06-17 03:32] VITALS: PULSE 47; RESP 22; O2SAT 100
[2025-06-17 05:17] LABS: Hematocrit 33.5 % (37-53); Hemoglobin 11.00 g/dL (11.27-16.99); Mean Corpuscular HGB Conc 32.8 g/dL (30-55); Mean Corpuscular Hemoglobin 30.3 pg (27-33); Mean Corpuscular Volume 92.3 fl (82-101); Nucleated Red Blood Cells % 0 %; Platelet Count 86 10^3/cmm (157-399); Red Blood Count 3.63 10^6/uL (3.85-5.65); White Blood Count 5.55 10^3/uL (3.29-11.43)
[2025-06-17] MEDS: DAPAGLIFLOZIN 10 MG TABLET PO (05:20)
[2025-06-17 05:22] VITALS: PULSE 52; BMI 58.0
[2025-06-17 05:35] VITALS: BP 104/63; PULSE 48; RESP 12; TEMP 37; O2SAT 100; BMI 49.8
[2025-06-17 05:38] LABS: Alanine Aminotransferase 29 U/L (0-41); Albumin Level 2.8 g/dL (3.5-5.2); Alkaline Phosphatase 94 U/L (40-130); Anion Gap 12.1 (5-19); Aspartate Amino Transferase 53 U/L (0-40); Blood Urea Nitrogen 30 mg/dL (8-23); Calcium 8.3 mg/dL (8.5-10.5); Carbon Dioxide 23 mmol/L (22-29); Chloride 106 mmol/L (98-107); Creatinine Clr Calc Pharmacy 81.9373; Globulin 3.5 g/dL (1.3-4.6); Glucose 95 mg/dL (65-115); Osmolality Calculated 290 mOsm/kg (285-295); Potassium 4.1 mmol/L (3.5-5.1); Sodium 137 mmol/L (136-145); Total Protein 6.3 g/dL (6.6-8.7)
--- NOTE | 2025-06-17 07:32 | PM.DCS ---
Discharge Providers Date of Admission: 06/13/25 12:22 Date of Discharge: June 17, 2025 Attending Provider at Admission: Ean Grayson MD Attending Provider at Discharge: Ean Grayson MD Primary Care Provider: [facility] [[email or web address]] Diagnoses at Discharge Discharge Diagnosis 1. Septic shock: 2. Acute kidney injury superimposed on CKD: 3. Elevated lactic acid level: 4. Thrombocytopenia: 5. Rhabdomyolysis: 6. Hyperbilirubinemia: 7. Paroxysmal A-fib: 8. CAD (coronary artery disease): 9. Toxic metabolic encephalopathy: 10. Cellulitis: 11. Moderate mitral regurgitation: 12. Acute on chronic right-sided congestive heart failure: Reason for Visit Reason for Visit: fall last night - weakness Brief History: Axel Wilcox is a 74 year old male with past medical history of type 2 diabetes mellitus, chronic bilateral lymphedema, hypertension, atrial fibrillation/Watchman device, CAD post PCI, chronic thrombocytopenia, lumbar stenosis, chronic CKD with creatinine baseline around 1.5 presents to the ER today via EMS because of feeling weak, tired since last night. As per patient he woke up around 2 to 3 AM last night to go to the bathroom and when he sat at the edge of the bed he slid down and could not get up till he was found sitting on the floor today morning. Patient denies any changes in medications recently. On examination his weak appearing, drowsy but AO x 3. Denies any nausea, vomiting but complains of occasional abdominal pain, denies any diarrhea, dysuria, difficulty breathing, cough more than usual, runny nose, sick contacts. In the ER he was found to be hypotensive with blood pressures mostly in high 80s to low 90s systolic. He was started on sepsis bolus. On examination currently his blood pressure is 100/66 mmHg Hospital Course Hospital Course He was admitted for further evaluation and management of severe sepsis in setting of cellulitis. His hospitalization was complicated by transient altered mental status which resolved. Patient has been at his baseline mentation for last 2 to 3 days. He did have SCOTTIE on CKD on admission which was managed with holding off and his diuretics and continuing on IV fluids. Rhabdomyolysis resolved. Repeat echocardiogram was done which showed normal EF with mild to moderate MR, PASP of 59 mmHg with concerns for right ventricular overload. Patient does have concerns for right-sided heart failure due to moderate MR. He continues to work well with physical therapy. He has been discharged in hemodynamically stable condition after completion of IV antibiotic course with advised to change Bumex to 1 mg oral daily. Lifestyle modification with congestive heart failure discussed in detail with the patient and he verbalized understanding. He is to restrict his oral intake of liquid to less than 50 ounces daily. Physical Exam Narrative: General: No acute distress, AO x3, HEENT: PERRLA, pupils bilaterally equal and reactive Chest: Normal vesicular breath sounds, no added sounds, equal good air entry bilaterally CVS: S1-S2 regular, no murmurs, no tachycardia, no gallops, no rubs Abdomen: Soft, mild tenderness in the right upper quadrant and epigastric region, distended, no organomegaly, bowel sounds present Neuro: No focal deficits, no facial deformity, AO x3, power 5/5 in all limbs Extremity: Bilateral chronic lymphedema changes present up to knee, less erythematous today. No pitting edema Discharge Data Studies Completed and Pending Completed Studies During Hospitalization Category Date Time Status CT chest abdomen pelvis [[place] [id number] Cat Scan 06/13/25 13:04 Completed ] Routine XR chest 1V portable [id number] Stat Exams 06/13/25 09:00 Completed XR chest 2V* [id number] Routine Exams 06/15/25 13:43 Completed XR foot RT 2V [id number] Routine Exams 06/13/25 13:07 [place] [id number] Routine Ultrasound 06/13/25 13:04 Completed CV. echo complete* [id number] Routine Ultrasound 06/13/25 13:04 Completed [place] liver [id number] Stat Ultrasound 06/13/25 13:09 Completed Pending at discharge Category Date Time Status Blood Culture Stat Lab 06/13/25 10:42 Results OVA and Parasites, Conc and PE Routine Lab 06/14/25 11:08 Received Salmonella / Shigella / Campy Routine Lab 06/14/25 11:08 Received Radiology Impressions Chest/Abdomen/Pelvis CT 06/13/25 13:04 IMPRESSION: Exam is somewhat limited without IV contrast. 1. Cardiomegaly. 2. No focal pneumonia. 3. Nonspecific prominent mediastinal and peribronchial lymph nodes. Enlarged subcarinal lymph nodes. 4. Cholelithiasis. 5. Somewhat cirrhotic contour to the liver. Recommend correlation with liver function tests. 6. Dilated IVC nonspecific but can be seen with liver disease and RIGHT heart failure. 7. Diffuse body wall anasarca. 8. Nonspecific enlarged RIGHT greater than LEFT inguinal lymph nodes. Venous Duplex 06/13/25 13:04 IMPRESSION: No evidence of deep vein thrombosis. Foot X-Ray 06/13/25 13:07 Impression: 1. No evidence of osteomyelitis. 2. 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 Liver Ultrasound 06/13/25 13:09 IMPRESSION: Gallstones, without definitive inflammatory change. Chest X-Ray 06/15/25 13:43 Impression: Cardiomegaly and atherosclerosis. Laboratory Results WBC 5.55 10^3/uL (3.29-11.43) 06/17/25 04:10 RBC 3.63 10^6/uL (3.85-5.65) L 06/17/25 04:10 Hgb 11.00 g/dL (11.27-16.99) L 06/17/25 04:10 Hct 33.5 % (37-53) L 06/17/25 04:10 MCV 92.3 fl (82-101) 06/17/25 04:10 MCH 30.3 pg (27-33) 06/17/25 04:10 MCHC 32.8 g/dL (30-55) 06/17/25 04:10 RDW 16.0 % (12.1-15.1) H 06/17/25 04:10 Plt Count 86 10^3/cmm (157-399) L 06/17/25 04:10 MPV 12.6 fL (7.4-10.4) H 06/17/25 04:10 Neut % (Auto) 71.7 % 06/17/25 04:10 Lymph % (Auto) 12.1 % 06/17/25 04:10 [place] % (Auto) 10.5 % 06/17/25 04:10 Eos % (Auto) 4.5 % 06/17/25 04:10 Baso % (Auto) 0.5 % 06/17/25 04:10 Neut # (Auto) 3.98 10^3/uL (1.8-7.7) 06/17/25 04:10 Lymph # (Auto) 0.7 10^3/uL (0.8-4.8) L 06/17/25 04:10 [place] # (Auto) 0.6 10^3/uL (0.2-0.9) 06/17/25 04:10 Eos # (Auto) 0.3 10^3/uL (0.0-0.8) 06/17/25 04:10 Baso # (Auto) 0.0 10^3/uL (0.0-0.1) 06/17/25 04:10 Nucleated RBC % (auto) 0 % 06/17/25 04:10 Nucleated RBCs # 0.0 /100WBC 06/17/25 04:10 ESR 26 mm/hr (0-10) H 06/14/25 06:36 D-Dimer 1.77 ug/mLFEU (0-0.59) H 06/13/25 09:26 Specimen Type Arterial 06/13/25 09:56 Sample Site Radial, right 06/13/25 09:56 ABG pH 7.44 (7.35-7.45) 06/13/25 09:56 ABG pCO2 32.8 mmHg (35-45) L 06/13/25 09:56 ABG pO2 57.2 mmHg (80.0-100.0) L 06/13/25 09:56 ABG PO2/FiO2 Ratio 272 06/13/25 09:56 ABG HCO3 22.1 mmol/L (22-26) 06/13/25 09:56 ABG O2 Saturation 90.2 06/13/25 09:56 ABG Base Excess -1.5 mmol/L (-2.0-2.0) 06/13/25 09:56 Eduard Test Pos 06/13/25 09:56 A-a O2 Gradient 6.9 mmHg (5-10) 06/13/25 09:56 Hematocrit 37.0 % (42-52) L 06/13/25 09:56 Hgb O2 Saturation 87.3 % (95-100) L 06/13/25 09:56 Carboxyhemoglobin 2.1 %THgb (0.4-20.1) 06/13/25 09:56 Methemoglobin 1.1 % (0.4-1.5) 06/13/25 09:56 Total Hemoglobin 12.1 g/dL (14-18) L 06/13/25 09:56 Sodium 135.0 mmol/L (131-143) 06/13/25 09:56 Potassium 4.0 mmol/L (3.5-5.0) 06/13/25 09:56 Glucose 134.0 mg/dL (70-115) H 06/13/25 09:56 Ionized Calcium 1.1 mmol/L (1.1-1.4) 06/13/25 09:56 O2 Delivery Device Room air 06/13/25 09:56 FiO2 21.0 % 06/13/25 09:56 Wrecking Crane Engine Operator ID [email or web address] 06/13/25 09:56 Sodium 137 mmol/L (136-145) 06/17/25 04:10 Potassium 4.1 mmol/L (3.5-5.1) 06/17/25 04:10 Chloride 106 mmol/L (98-107) 06/17/25 04:10 Carbon Dioxide 23 mmol/L (22-29) 06/17/25 04:10 Anion Gap 12.1 (5-19) 06/17/25 04:10 BUN 30 mg/dL (8-23) H 06/17/25 04:10 Creatinine 1.1 mg/dL (0.7-1.2) 06/17/25 04:10 GFR Calculation Not Reportable 06/17/25 04:10 Glucose 95 mg/dL (65-115) 06/17/25 04:10 POC Glucose 127 mg/dL (70-110) H 06/16/25 20:40 Calculated Osmolality 290 mOsm/kg (285-295) 06/17/25 04:10 Lactic Acid 4.0 mmol/L (0.5-2.2) H 06/13/25 09:26 Lactic Acid (Sepsis) 2.8 mmol/L (0.5-2.2) H 06/13/25 13:34 Calcium 8.3 mg/dL (8.5-10.5) L 06/17/25 04:10 Phosphorus 3.1 mg/dL (2.5-4.5) 06/16/25 04:19 Magnesium 2.6 mg/dL (1.7-2.3) H 06/16/25 04:19 Iron 27 ug/dL (59-158) L 06/13/25 09:26 TIBC 294 mcg/dl 06/13/25 09:26 % Saturation 9.1 % (20-50) L 06/13/25 09:26 Unsat Iron Binding 267 ug/dL (112-347) 06/13/25 09:26 Total Bilirubin 0.9 mg/dL (0.15-1.2) 06/17/25 04:10 AST 53 U/L (0-40) H 06/17/25 04:10 ALT 29 U/L (0-41) 06/17/25 04:10 Alkaline Phosphatase 94 U/L (40-130) 06/17/25 04:10 Creatine Kinase 2532 U/L (39-308) H* 06/13/25 09:26 Troponin T Baseline 72 ng/L (0-15) H 06/13/25 17:14 Troponin T 120 Minute 70.18 ng/L (0-15) H 06/13/25 19:39 Delta Troponin T -1.82 ABS# (0-10) L 06/13/25 19:39 Troponin T Hi Sens 6Hr 73.93 ng/L (0-15) H 06/13/25 23:19 Troponin T Hi Sens 6Hr Delta 1.93 ng/L (0-12) 06/13/25 23:19 C-Reactive Protein 143.5 mg/L (0.0-4.9) H 06/14/25 06:36 Total Protein 6.3 g/dL (6.6-8.7) L 06/17/25 04:10 Albumin 2.8 g/dL (3.5-5.2) L 06/17/25 04:10 Globulin 3.5 g/dL (1.3-4.6) 06/17/25 04:10 Triglycerides 68 mg/dL (0-150) 06/14/25 05:36 Cholesterol 67 mg/dL (0-200) 06/14/25 05:36 LDL Cholesterol, Calc 23 mg/dL (50-129) L 06/14/25 05:36 HDL Cholesterol 30 mg/dL (60-100) L 06/14/25 05:36 LDL/HDL Ratio 0.77 RATIO (0.00-3.22) 06/14/25 05:36 Cholesterol/HDL Ratio 2.23 mg/dL (1.0-5.00) 06/14/25 05:36 Lipase 27 U/L (13-60) 06/13/25 17:14 Vitamin B12 445 pg/mL (232-1245) 06/13/25 09:26 Folate 7.5 ng/mL (4.5-32.2) 06/14/25 05:36 Procalcitonin 10.00 ng/mL (0-0.5) H 06/14/25 05:36 TSH 2.27 uIU/mL (0.27-4.20) 06/13/25 09:26 Urine Color [place] (Yellow) A 06/13/25 15:25 Urine Appearance Clear (CLEAR) 06/13/25 15:25 Urine pH 5.0 (5-7) 06/13/25 15:25 Ur Specific [place] 1.014 (1.005-1.030) 06/13/25 15:25 Urine Protein Negative (Negative) 06/13/25 15: Urine Glucose (UA) 2+ (Normal) H 06/13/25 15:25 Urine Ketones Negative (Negative) 06/13/25 15:25 Urine Blood 1+ (Negative) A 06/13/25 15:25 Urine Nitrate Negative (Negative) 06/13/25 15:25 Urine Bilirubin Negative (Negative) 06/13/25 15:25 Urine Urobilinogen 0.2 mg/dL (Negative) 06/13/25 15:25 Ur Leukocyte Esterase Trace (Negative) A 06/13/25 15:25 Urine RBC 0-2 /hpf (0-2) 06/13/25 15:25 Urine WBC 6-10 /hpf (0-5) 06/13/25 15:25 Ur Squamous Epith Cells 0-5 /hpf (0-5) 06/13/25 15:25 Amorphous Sediment Not Reportable 06/13/25 15:25 Urine Bacteria None seen /hpf (NONE) 06/13/25 15:25 Hyaline Casts 13.22 /lpf 06/13/25 15:25 Nasal MRSA (PCR) Mrsa not detected (Negative) 06/13/25 18:03 Vancomycin Trough 13.1 ug/mL (10-15) 06/16/25 00:04 Random Vancomycin 26.6 ug/mL (20.0-40.0) 06/15/25 04:19 Adenovirus (PCR) Not detected (NOT DETECT) 06/13/25 18:03 C. pneumoniae DNA (PCR) Not detected (NOT DETECT) 06/13/25 18:03 C. difficile (PCR) Negative (Negative) 06/14/25 11:08 Coronavirus 229E (PCR) Not detected (NOT DETECT) 06/13/25 18:03 Hepatitis A IgM Ab Non-reactive (Nonreactive) 06/13/25 23:19 Hep Bs Antigen Non-reactive (Nonreactive) 06/13/25 23:19 Hep Bs Antibody < 3.5 (11.5-1000) L 06/13/25 23:19 Hep B Core Total Ab Non-reactive (Nonreactive) 06/13/25 23:19 Hepatitis C Antibody Non-reactive (Nonreactive) 06/13/25 23:19 HIV 1&2 Ab & HIV 1 Ag Non-reactive (Non-Reactiv) 06/13/25 23:19 HIV 1&2 Antibody Non-reactive (Non-Reactiv) 06/13/25 23:19 Human Metapneumovir PCR Not detected (NOT DETECT) 06/13/25 18:03 Influenza A (H1) PCR Not detected (NOT DETECT) 06/13/25 18:03 Influ A (H1/09) PCR Not detected (NOT DETECT) 06/13/25 18:03 Influenza A (H3) PCR Not detected (NOT DETECT) 06/13/25 18:03 Influenza Type A (PCR) Not detected (NOT DETECT) 06/13/25 18:03 Influenza Type B (PCR) Not detected (NOT DETECT) 06/13/25 18:03 M. pneumoniae (PCR) Not detected (NOT DETECT) 06/13/25 18:03 Parainfluenza 1 (PCR) Not detected (NOT DETECT) 06/13/25 18:03 Parainfluenza 2 (PCR) Not detected (NOT DETECT) 06/13/25 18:03 Parainfluenza 3 (PCR) Not detected (NOT DETECT) 06/13/25 18:03 Parainfluenza 4 (PCR) Not detected (NOT DETECT) 06/13/25 18:03 RSV Type A (PCR) Not detected (NOT DETECT) 06/13/25 18:03 RSV Type B (PCR) Not detected (NOT DETECT) 06/13/25 18:03 Entero/Rhino (PCR) Not detected (NOT DETECT) 06/13/25 18:03 SARS-CoV-2 (PCR) Not detected (NOT DETECT) 06/13/25 18:03 Vitals Last Vital Signs Temp 98.6 F 06/17/25 05:35 Pulse 48 L 06/17/25 05:35 Resp 12 06/17/25 05:35 BP 104/63 06/17/25 05:35 Pulse Ox 100 06/17/25 05:35 O2 Del Method BiPAP 06/17/25 05:35 O2 Flow Rate 4 06/15/25 20:00 FiO2 30 06/17/25 03:32 Discharge Plan Discharge Patient Disposition: Home Health Service Condition: Stable Prescriptions: New bumetanide 1 mg tablet 1 mg PO DAILY Qty: 30 0RF Continued (DME) diabteic shoes w/ 3 inserts See Rx Instructions .Route .MEDSUPPLY Qty: 1 0RF Rx Instructions: As directed by the faheem mendez glimepiride 2 mg tablet 2 mg PO DAILY tamsulosin [Flomax] 0.4 mg capsule 0.4 mg PO QPM (DME) diabetic shoes with 3 custom inserts See Rx Instructions .Route .MEDSUPPLY Qty: 1 0RF Rx Instructions: As directed to [facility] diabetes [facility] mupirocin [Centany] 2 % ointment 1 applic topical BID Qty: 15 2RF dapagliflozin propanediol [Farxiga] 10 mg tablet 10 mg PO DAILY escitalopram oxalate 10 mg tablet 10 mg PO DAILY lisinopril 5 mg tablet 5 mg PO DAILY atorvastatin 40 mg tablet 40 mg PO DAILY potassium chloride 20 mEq/15 mL liquid 20 meq PO BID aspirin 81 mg tablet,delayed release (DR/EC) 81 mg PO DAILY (DME) Custom Molded Orthotics See Rx Instructions .Route .MEDSUPPLY Qty: 1 0RF Rx Instructions: As directed [facility] [place] magnesium glycinate 100 mg magnesium Capsule 100 mg PO BEDTIME acidophilus-pectin, citrus 100 million cell-10 mg Capsule 1 cap PO BID Trulicity 1.5 mg/0.5 mL pen injector 1.5 mg SUBCUT Q7D Discontinued bumetanide 2 mg tablet 4 mg PO BID Qty: 14 0RF Discharge Order = DC NOW: Discharge Order (Routine); Ordered 06/17/25 Ordered By: Ean Grayson Other Ambulatory Orders: DME: Walker (Order) Location: None Selected Ordered By: Ean Grayson Referrals: [facility] ([facility]) [Outside] [employer] WORKER HELPER [Primary Care Provider, Nurse Practitioner] - 7-10 days Discharge Diet: Cardiac and Diabetic Discharge Activity: Resume usual activity and Increase activity as tolerated Patient Instructions: Cellulitis, Bumetanide (By mouth) (Bumex), Kidney Failure, Heart Failure (DC), Opioid Safety, Patient Portal & Shahbaz Instructions Activity Restrictions/Additional Instructions: Restrict fluid intake to less than 1500 cc, salt intake to less than 2 g daily. Advised to check his weight daily at home. Is advised that weight today would be the dry weight and if body weight increases by around 5 pounds, patient is to take an extra dose of Bumex daily till body weight comes down to weight today. If not able to come down to dry body weight in 1 week, then is to call cardiology office for further recommendations. Patient was counseled in detail to take medications regularly as prescribed. Check your blood pressure daily at home maintain a blood pressure diary. Goal blood pressures less than 140/90 mmHg. Continue with tight compression stockings. Discharge Attestations Time Spent in Discharge Care*: greater than 30 min Specific Discharge Activities: educating patient, educating and/or supporting family/caregiver, discussing with pcp/other providers, discussing with immigration case worker/social workers/dc planners, documenting/other paperwork and evaluating patient/reviewing data Status at Discharge: Cognitive status at discharge: cognitively intact, Behavioral status at discharge: cooperative, Functional status at discharge: uses cane/walker, Overall status at discharge: patient is progressing back to baseline Quality Metrics Clinical Quality Measures [ No reported AMI, CVA or VTE this stay] Coding Level of Care Code 67980 Total time (in minutes) for Discharge: 65 Diagnoses Septic shock A41.9; R65.21 Acute kidney injury superimposed on CKD N17.9; N18.9 Elevated lactic acid level R79.89 Thrombocytopenia D69.6 Rhabdomyolysis M62.82 Hyperbilirubinemia E80.6 Paroxysmal A-fib I48.0 CAD (coronary artery disease) I25.10 Toxic metabolic encephalopathy G92.8 Cellulitis L03.90 Moderate mitral regurgitation I34.0 Acute on chronic right-sided congestive heart failure I50.813 Heart failure chronicity: acute on chronic Heart failure type: right-sided
[2025-06-17 07:35] VITALS: BP 116/67; PULSE 58; RESP 18; TEMP 36.8; O2SAT 93
[2025-06-17 07:46] VITALS: O2SAT 94; O2SAT 95
--- NOTE | 2025-06-17 08:54 | PC.SOCIAL ---
IMM Update pg 2 of IMM Updated and reviewed w/ patient. Copy provided and copy dated, initialed and placed in chart.
== END 2025-06-17 12:05 | disposition home health service (06) | DRG 871 ==
LOC: ER 11:47 → ER IP 12:23 → ICU 14:28 → ER IP 14:38 → ICU 21:36 → MEDSURG 06-14 14:48
PROVIDERS: Admitting Provider Student in an Organized Health Care Education/Training Program; Emergency Provider Family Medicine; Visit Provider Student in an Organized Health Care Education/Training Program
DX: A41.9 Sepsis, unspecified organism (principal); G92.8 Other toxic encephalopathy; R65.21 Severe sepsis with septic shock; N17.9 Acute kidney failure, unspecified; M62.82 Rhabdomyolysis; L03.115 Cellulitis of right lower limb; L03.116 Cellulitis of left lower limb; I13.0 Hypertensive heart and chronic kidney disease with heart failure and stage 1 through stage 4 chronic kidney disease, or unspecified chronic kidney disease; Z88.0 Allergy status to penicillin; I89.0 Lymphedema, not elsewhere classified; I25.10 Atherosclerotic heart disease of native coronary artery without angina pectoris; Z72.0 Tobacco use; Z79.82 Long term (current) use of aspirin; N18.9 Chronic kidney disease, unspecified; D69.6 Thrombocytopenia, unspecified; E80.6 Other disorders of bilirubin metabolism; I48.0 Paroxysmal atrial fibrillation; E11.22 Type 2 diabetes mellitus with diabetic chronic kidney disease; Z95.5 Presence of coronary angioplasty implant and graft; I50.813 Acute on chronic right heart failure; Z79.85 Long-term (current) use of injectable non-insulin antidiabetic drugs; Z79.84 Long term (current) use of oral hypoglycemic drugs
CPT/HCPCS: 36415; 36416; 36600; 71045; 71046; 71250; 73620; 74176; 76705; 80051; 80053; 80061; 80202; 81001; 82274; 82330; 82550; 82607; 82746; 82805; 82962; 83540; 83550; 83605; 83630; 83690; 83735; 84100; 84145; 84443; 84484; 85025; 85378; 85651; 86140; 86403; 86705; 86706; 86709; 86803; 87040; 87045; 87070; 87086; 87177; 87205; 87209; 87340; 87427; 87449; 87486; 87493; 87581; 87633; 87806; 93005; 93306; 93970; 94660; 94664; 94760; 96361; 96365; 96372; 96375; 97116; 97161; 97167; 97530; 97535; 99285; A9281; J0696; J1644; J1815; J2185; J2270; J2470; J3373; J7030; J7050; J9999

== ENCOUNTER 2025-06-30 15:31 | Outpatient (CLI) | payer MEDICARE, MEDICAID, SELFPAY ==
[2025-06-30 16:03] LABS: Hematocrit 36.7 % (37-53); Hemoglobin 12.00 g/dL (11.27-16.99); Mean Corpuscular HGB Conc 32.7 g/dL (30-55); Mean Corpuscular Hemoglobin 30.3 pg (27-33); Mean Corpuscular Volume 92.7 fl (82-101); Nucleated Red Blood Cells % 0 %; Platelet Count 119 10^3/cmm (157-399); Red Blood Count 3.96 10^6/uL (3.85-5.65); White Blood Count 5.78 10^3/uL (3.29-11.43)
[2025-06-30 16:49] LABS: Alanine Aminotransferase 23 U/L (0-41); Albumin Level 3.1 g/dL (3.5-5.2); Alkaline Phosphatase 185 U/L (40-130); Anion Gap 14.3 (5-19); Aspartate Amino Transferase 37 U/L (0-40); Blood Urea Nitrogen 31 mg/dL (8-23); Calcium 8.0 mg/dL (8.5-10.5); Carbon Dioxide 24 mmol/L (22-29); Chloride 100 mmol/L (98-107); Globulin 3.9 g/dL (1.3-4.6); Glucose 120 mg/dL (65-115); Osmolality Calculated 286 mOsm/kg (285-295); Potassium 4.3 mmol/L (3.5-5.1); Sodium 134 mmol/L (136-145); Total Protein 7.0 g/dL (6.6-8.7)
== END 2025-06-30 15:32 | disposition home or self-care (01) ==
PROVIDERS: Visit Provider Family Medicine
DX: N18.9 Chronic kidney disease, unspecified (principal); A41.9 Sepsis, unspecified organism
CPT/HCPCS: 80053; 85025

== ENCOUNTER 2025-08-09 13:28 | Oncology outpatient (recurring) (ONCR) | payer MEDICARE, MEDICAID, SELFPAY ==
[2025-08-09 13:50] LABS: Hematocrit 41.1 % (37-53); Hemoglobin 13.30 g/dL (11.27-16.99); Mean Corpuscular HGB Conc 32.4 g/dL (30-55); Mean Corpuscular Hemoglobin 29.6 pg (27-33); Mean Corpuscular Volume 91.3 fl (82-101); Nucleated Red Blood Cells % 0 %; Platelet Count 90 10^3/cmm (157-399); Red Blood Count 4.50 10^6/uL (3.85-5.65); White Blood Count 6.14 10^3/uL (3.29-11.43)
[2025-08-09 14:20] LABS: Alanine Aminotransferase 10 U/L (0-41); Albumin Level 3.6 g/dL (3.5-5.2); Alkaline Phosphatase 146 U/L (40-130); Anion Gap 16.9 (5-19); Aspartate Amino Transferase 23 U/L (0-40); Blood Urea Nitrogen 33 mg/dL (8-23); Calcium 8.7 mg/dL (8.5-10.5); Carbon Dioxide 25 mmol/L (22-29); Chloride 98 mmol/L (98-107); Globulin 4.3 g/dL (1.3-4.6); Glucose 141 mg/dL (65-115); Osmolality Calculated 292 mOsm/kg (285-295); Potassium 3.9 mmol/L (3.5-5.1); Sodium 136 mmol/L (136-145); Total Protein 7.9 g/dL (6.6-8.7)
[2025-08-09 14:47] LABS: Hepatitis A Antibody IgM Non-Reactive (Nonreactive); Hepatitis B Surface Antigen Non-Reactive (Nonreactive)
== END 2025-08-10 23:59 | disposition home or self-care (01) ==
PROVIDERS: Visit Provider Internal Medicine Medical Oncology
DX: D69.6 Thrombocytopenia, unspecified (principal); R60.9 Edema, unspecified; K74.60 Unspecified cirrhosis of liver
CPT/HCPCS: 80053; 85025; 86705; 86706; 86709; 86803; 87340; 99213